=== PATIENT | female | born 1955 | race Caucasian/White ===

== ENCOUNTER → 2017-10-24 | Outpatient (CLI) | payer BC, SELFPAY | PROVIDERS: Visit Provider Family Medicine | DX: Z12.31 Encounter for screening mammogram for malignant neoplasm of breast (principal); I49.9 Cardiac arrhythmia, unspecified | CPT/HCPCS: 77067; 93225; 93226; G0202 ==

== ENCOUNTER → 2018-05-18 13:45 | Outpatient (POV) | payer BC, SELFPAY | PROVIDERS: Visit Provider Nurse Practitioner Acute Care | DX: Z00.00 Encounter for general adult medical examination without abnormal findings (principal) ==

== ENCOUNTER → 2018-11-27 08:22 | Outpatient (CLI) | payer BC, SELFPAY ==
--- NOTE | 2018-11-27 08:26 | MM_ITS ---
MM Dig screening mamm BI w/CAD CAD Screening COMPARISON: May 2015, October 2017, September 2013 bilateral mammogram INDICATION: Routine screening. No hormones. No new complaints. Family history. Maternal aunt with breast cancer postmenopausal X2 TECHNIQUE: Standard CC and MLO images were obtained. R2 CAD reviewed. Additional CC nipple profile view right breast included. FINDINGS: Minimal residual fibroglandular elements. Overall lower breast bilaterally with with moderate generalized fatty replacement.. No dominant mass nor suspicious calcifications either breast. No significant change since prior studies. No areas of significant concern Bilateral follow-up one year recommended IMPRESSION: Stable bilateral mammogram. No new areas concern.. Bilateral follow-up in one year. BI-RADS Category:1 Negative RECOMMENDED FOLLOW-UP: 1YR - 1 YEAR FOLLOW-UP (A letter has been sent to the patient regarding results of the study.)
== END ==
PROVIDERS: PCP Family Medicine; Visit Provider Family Medicine
DX: Z12.31 Encounter for screening mammogram for malignant neoplasm of breast (principal)
CPT/HCPCS: 77067

== ENCOUNTER → 2019-01-05 14:39 | Outpatient (POV) | payer BC, SELFPAY | PROVIDERS: Visit Provider Dermatology | DX: Z00.00 Encounter for general adult medical examination without abnormal findings (principal) ==

== ENCOUNTER → 2019-07-26 12:56 | Outpatient (POV) | payer MEDICARE, SELFPAY | PROVIDERS: PCP Family Medicine; Visit Provider Nurse Practitioner Family | DX: Z00.00 Encounter for general adult medical examination without abnormal findings (principal) ==

== ENCOUNTER → 2020-03-16 10:16 | Outpatient (CLI) | payer MEDICARE, SELFPAY ==
--- NOTE | 2020-03-16 10:27 | MM_ITS ---
PROCEDURE: MM DIG SCREENING MAMM BI W/CAD Digital Breast Tomosynthesis Included CLINICAL INDICATION: SCTREENING There is a history of breast cancer in the patient's paternal aunt. COMPARISON: [facility] DIG MAMM-SCREEN ABBY from 05/26/2015 [facility] DIG MAMM-SCREEN ABBY W/CAD from 10/24/2017 [facility] MM Dig screening mamm BI w/CAD from 11/27/2018 TECHNIQUE: Standard CC and MLO images and 3D Tomosynthesis was obtained. R2 CAD reviewed. FINDINGS: Scattered fibroglandular densities are seen in both breasts on a background of fatty breast parenchyma. The findings of bilateral and symmetrical. There is no new or suspicious lesion in either breast and no suspicious microcalcifications. IMPRESSION: Fibrofatty parenchyma no suspicious lesions seen BI-RAD Category: 1 Negative FOLLOW-UP: 1YR 1 Year Follow-up (A letter has been sent to the patient regarding results of the study.) Dictated by: Dr. Avel Almeida MD 03/17/2020 09:[address] Avel Almeida MD in [place] 03/17/2020 09:57
== END ==
PROVIDERS: PCP Family Medicine; Visit Provider Nurse Practitioner Family
DX: Z12.31 Encounter for screening mammogram for malignant neoplasm of breast (principal)
CPT/HCPCS: 77063; 77067

== ENCOUNTER 2020-04-25 10:39 | Emergency (ER) | payer MEDICARE, SELFPAY ==
[2020-04-25 10:52] VITALS: BP 186/100; PULSE 84; RESP 18; TEMP 36.7; O2SAT 95; BMI 35.5
--- NOTE | 2020-04-25 11:26 | CT_ITS ---
PROCEDURE: CT HEAD/BRAIN WO CON CLINICAL INDICATION: dizziness Dizziness, nausea COMPARISON: No exams were available for comparison TECHNIQUE: Axial images obtained. All CT scans at the facility use one or more dose reduction, viz: automated exposure control, ma/kV adjustment per patient size (including targeted exams where dose is matched to indication, i.e. head), or iterative reconstruction technique. FINDINGS: No midline shift, mass effect, intracranial hemorrhage, hydrocephalus, or extra-axial fluid collection is evident. There is a small lipoma in the falx. The calvarium has an unremarkable appearance. No mastoid effusion. Postsurgical changes of the sinuses with mild mucosal thickening IMPRESSION: No acute intracranial finding Dictated by: Junior Olivo MD 04/25/2020 13:19 Electronically signed by Junior Olivo MD in [place] 04/25/2020 13:19
[2020-04-25 11:28] VITALS: BP 170/96; PULSE 80; O2SAT 96
[2020-04-25 11:37] LABS: Basophils % 0.5 % (0.1-2.0); Eosinophils # 0.2 K/mm3 (0.0-0.4); Eosinophils % 2.2 % (0.1-12.0); Hemoglobin 13.3 g/dL (12.2-16.2); Lymphocytes # 2.9 K/mm3 (0.7-4.5); Lymphocytes % 37.7 % (10-50); Mean Corpuscular HGB Conc 35.1 g/dL (31.8-35.4); Mean Corpuscular Hemoglobin 32.4 pg (27.0-31.2); Mean Corpuscular Volume 92.3 fl (81-99); Monocytes # 0.3 K/mm3 (0.1-1.0); Monocytes % 3.9 % (1.7-9.3); Neutrophils # 4.3 K/mm3 (1.8-7.8); Neutrophils % 55.7 % (37.0-80.0); Platelet Count 263 K/mm3 (142-424); Red Blood Count 4.11 M/mm3 (4.20-5.40); Red Cell Distribution Width 13.9 % (11.5-17.5); White Blood Count 7.7 K/mm3 (4.8-10.8)
[2020-04-25 11:42] LABS: Anion Gap 9.5 mEq/L (5-15); Blood Urea Nitrogen 16 mg/dl (7-17); Calcium 9.4 mg/dl (8.4-10.2); Carbon Dioxide 26 mmol/L (22.0-30.0); Chloride 105 mmol/L (98-107); Creatinine Clearance Estimated 87 mL/min (50-200); Estimated Glomerular Filt Rate 72 ml/min (>60); GFR (African American) 87 ML/MIN (>60); Glucose 156 mg/dl (74-100); Potassium 3.5 mmoL/L (3.5-5.1); Sodium 137 mmol/L (136-145)
[2020-04-25 11:55] LABS: Troponin I < 0.01 ng/ml (0.00-0.034)
[2020-04-25 12:28] VITALS: BP 152/90; PULSE 76; O2SAT 95
[2020-04-25 12:56] VITALS: BP 152/90; PULSE 70; RESP 18; O2SAT 95
--- NOTE | 2020-04-25 13:26 | HMH.EDDIZZ ---
ED Disposition Clinical Impression: Active cochlear Meniere's disease Disposition: Home, Self-Care Condition on Discharge: Good Instructions: DI for Meniere's Disease Additional Instructions: Please stop your hydrochlorothiazide and take the new medication that I am giving you every morning. Use the meclizine as needed for vertigo and dizziness. Prescriptions: Meclizine HCl [Meclizine 25mg Tab] 25 mg PO TID 10 Days #30 tab Transmission Status: Pending to [facility] Triamterene/Hydrochlorothiazid [Triamterene-Hctz 37.5-25 mg Tb] 1 each PO DAILY 30 Days #30 tab Transmission Status: Pending to [facility] Referrals: Peña Palacios MD [Primary Care Provider] - - Critical Care Critical Care Time: No Attestation: On 04/25/20, the high probability of a clinically significant, sudden or life threatening deterioration of the following system(s) required my full and direct attention, intervention and personal management. The time I documented below is in addition to time spent performing reported procedures but includes the following listed in this critical care notation. Medical Decision Making - Medical Records Medical records reviewed: Yes: I reviewed the patient's medical records. - Kurtis Inquiry Pt receiving controlled substance: No Vital Signs: 04/25/20 10:52 04/25/20 11:28 04/25/20 12:28 Temperature 98.1 F Temperature Source Oral Pulse Rate [Right Brachial] 84 80 76 Respiratory Rate 18 Blood Pressure [Right Arm] 186/100 H 170/96 H 152/90 H Blood Pressure Mean [Right Arm] 128 120 110 Blood Pressure Source [Right Arm] Automatic Cuff Automatic Cuff Automatic Cuff Blood Pressure Position [Right Arm] Sitting Sitting Sitting 02 Sat by Pulse Oximetry 95 96 95 Oxygen Delivery Method Room Air Room Air Room Air 04/25/20 12:56 Temperature Temperature Source Pulse Rate [Right Brachial] 70 Respiratory Rate 18 Blood Pressure [Right Arm] 152/90 H Blood Pressure Mean [Right Arm] 110 Blood Pressure Source [Right Arm] Automatic Cuff Blood Pressure Position [Right Arm] Sitting 02 Sat by Pulse Oximetry 95 Oxygen Delivery Method - Lab Data Lab results reviewed: Yes: I reviewed the patient's lab results. Lab Results 04/25/20 11:20: WBC 7.7, RBC 4.11 L, Hgb 13.3, Hct 38.0, MCV 92.3, MCH 32.4 H, MCHC 35.1, RDW 13.9, Plt Count 263, MPV 8.0, Neut % (Auto) 55.7, Lymph % (Auto) 37.7, [place] % (Auto) 3.9, Eos % (Auto) 2.2, Baso % (Auto) 0.5, Neut # (Auto) 4.3, Lymph # (Auto) 2.9, [place] # (Auto) 0.3, Eos # (Auto) 0.2, Baso # (Auto) 0.0 04/25/20 11:20: Sodium 137, Potassium 3.5, Chloride 105, Carbon Dioxide 26, Anion Gap 9.5, BUN 16, Creatinine 0.80, Estimated Creat Clear 87, Estimated GFR 72, Est GFR ( Amer) 87, Glucose 156 H, Calcium 9.4, Troponin I < 0.01 Result diagrams: 04/25/20 11:20 04/25/20 11:20 Orders (Tests/Meds): ORDERS Category Date Time Status Troponin I Q3H Lab 04/25/20 14:30 Ordered Troponin I Q3H Lab 04/25/20 17:30 Ordered Dizzy HPI - General Chief Complaint: Dizziness Stated Complaint: HB nausa Time Seen by Provider: 04/25/20 13:00 Mode of Arrival: Ambulatory Source of Information: Patient Limitations: No Limitations Description of Symptoms (Recalled from ER Triage Doc. by RN): Nausea, dizziness - History of Present Illness MD complaint: dizziness Onset (ago): hour(s) Time: 13:00 Timing: sudden onset Description: sense of movement, room spinning History of similar episodes: No History of trauma: No Severity: moderate Relieving factors: remaining still Exacerbating factors: movement Associated symptoms: denies other symptoms - Related Data Home Medications Medication Instructions Recorded Confirmed Aspirin [Aspirin 81mg EC Tab] 81 mg PO DAILY 03/17/18 03/17/18 Cetirizine HCl [Zyrtec] 10 mg PO DAILY 03/17/18 03/17/18 Duloxetine HCl [Cymbalta 30mg 30 mg PO DAILY 03/17/18 03/17/18 capsule] Esomeprazole Magnesium [N
[2020-04-25 13:30] VITALS: BP 142/85; PULSE 67; O2SAT 96
[2020-04-25 14:07] VITALS: BP 121/76; PULSE 79; RESP 16; TEMP 36.7; O2SAT 97
== END 2020-04-25 14:09 | disposition home or self-care (01) ==
PROVIDERS: Emergency Provider Family Medicine; PCP Family Medicine
DX: H81.09 Meniere's disease, unspecified ear (principal); E78.5 Hyperlipidemia, unspecified; I10 Essential (primary) hypertension; Z79.899 Other long term (current) drug therapy
CPT/HCPCS: 70450; 80048; 84484; 85025; 96374; 99283; 99284; J2405

== ENCOUNTER → 2020-09-08 07:46 | Outpatient (CLI) | payer MEDICARE, SELFPAY ==
[2020-09-08 08:06] LABS: Chloride 105 mmol/L (98-107)
[2020-09-08 08:07] LABS: Sodium 140 mmol/L (136-145)
[2020-09-08 08:09] LABS: Alanine Aminotransferase 39 U/L (12-78); Albumin Level 4.4 g/dl (3.5-5.0); Albumin/Globulin Ratio 1.4 (1.1-1.8); Alkaline Phosphatase 98 U/L (38-126); Aspartate Amino Transferase 34 U/L (14-36); Bilirubin,Total 0.5 mg/dl (0.2-1.3); Blood Urea Nitrogen 15 mg/dl (7-17); Carbon Dioxide 27 mmol/L (22.0-30.0); Estimated Glomerular Filt Rate 63 ml/min (>60); GFR (African American) 76 ML/MIN (>60); Globulin 3.2 g/dL (1.3-3.2); Total Protein,Serum 7.6 g/dl (6.3-8.2)
[2020-09-08 08:10] LABS: Calcium 9.5 mg/dl (8.4-10.2); Glucose 146 mg/dl (74-100); HDL Cholesterol 42 mg/dl (40-60)
[2020-09-08 08:15] LABS: C-Reactive Protein 8.7 mg/L (0-4); Triglycerides 444 mg/dl (30-150)
[2020-09-08 08:34] LABS: Cholesterol 336 mg/dl (140-200)
--- NOTE | 2020-09-08 08:37 | MR_ITS ---
PROCEDURE: MR HEAD/BRAIN WO/W CON CLINICAL INDICATION: CHRONIC MIXED HEADACHE PT C/O HEADACHES AND BLURRED VISION X 3 MONTHS. STATES BLURRED VISION IS ONLY WHEN HEAD HURTS. PT DENIES INJURY OR TRAUMA. COMPARISON: CT CT HEAD/BRAIN WO CON from 04/25/2020 TECHNIQUE: Routine multiplanar multi echo sequences are performed without gadolinium enhancement. FINDINGS: No midline shift, mass effect, intracranial hemorrhage, hydrocephalus, or acute cortical infarction is evident. There are few scattered periventricular and subcortical T2 white matter hyperintensities. These do not demonstrate restricted diffusion nor do the show contrast enhancement. There is mild diffuse and symmetric pachymeningeal/dural arachnoid thickening and enhancement.. This enhancement does not extend into the sulci but is present at the basilar cistern and tentorium. The pituitary, optic chiasm, corpus callosum, and craniocervical junction have an unremarkable appearance. There does appear to be a bulging disc with canal stenosis at C3-C4 on the very periphery of the image. There is mild mucosal thickening of the left maxillary sinus. IMPRESSION: There is mild symmetric and diffuse pachymeningeal/dural arachnoid thickening and enhancement. This is a nonspecific finding and may be secondary to prior surgery, infection/meningitis, neoplasm, intracranial hypotension, and granulomatous disease. Correlation with clinical parameters are needed. Consider neurology consult for further evaluation. Dictated by: Junior Olivo MD 09/09/2020 17:36 Junior Olivo MD in [place] 09/09/2020 17:36
[2020-09-08 08:50] LABS: Hemoglobin A1C 5.8 % (4.0-6.0)
[2020-09-08 11:31] LABS: Thyroid Stimulating Hormone 1.63 uIU/mL (0.465-4.68)
[2020-09-08 12:10] LABS: Direct LDL Cholesterol 165.54 mg/dL (100-129)
== END ==
PROVIDERS: PCP Family Medicine; Visit Provider Family Medicine
DX: G44.89 Other headache syndrome (principal); Z79.899 Other long term (current) drug therapy
CPT/HCPCS: 36415; 70553; 80053; 80061; 83036; 84436; 84443; 86140; A9576

== ENCOUNTER → 2020-10-11 09:14 | Outpatient (CLI) | payer MEDICARE, SELFPAY ==
[2020-10-11 09:21] LABS: MANUAL DIFFERENTIAL MANUAL DIFFERENTIAL (MANUAL DIFF)
[2020-10-11 09:54] LABS: Basophils # 0.1 K/mm3 (0-0.2); Basophils % 0.9 % (0.1-2.0); Eosinophils # 0.2 K/mm3 (0.0-0.4); Hematocrit 45.2 % (37.0-47.0); Hemoglobin 15.1 g/dL (12.2-16.2); Lymphocytes # 2.6 K/mm3 (0.7-4.5); Lymphocytes % 35.1 % (10-50); Mean Corpuscular HGB Conc 33.5 g/dL (31.8-35.4); Mean Corpuscular Hemoglobin 31.6 pg (27.0-31.2); Mean Corpuscular Volume 94.3 fl (81-99); Monocytes # 0.3 K/mm3 (0.1-1.0); Neutrophils # 4.3 K/mm3 (1.8-7.8); Platelet Count 315 K/mm3 (142-424); Red Blood Count 4.79 M/mm3 (4.20-5.40); Red Cell Distribution Width 13.9 % (11.5-17.5); White Blood Count 7.4 K/mm3 (4.8-10.8)
[2020-10-11 11:48] LABS: Erythrocyte Sedimentation Rate 17 mm/hr (0-30)
[2020-10-11 11:56] LABS: Eosinophils % 3 % (0-3); Lymphocytes % 38 % (10-50); Monocytes % 2 % (2-9); Neutrophils % 56 % (42-76); Platelet Estimate Normal; Total Cells Counted 100
[2020-10-11 11:57] LABS: RBC Morphology Normal
[2020-10-12 15:18] LABS: Angiotensin Converting Enzyme 40 U/L (14-82)
[2020-10-19 15:51] LABS: Antinuclear Antibodies (ANA) NEGATIVE
== END ==
PROVIDERS: Visit Provider Specialist
DX: G89.29 Other chronic pain (principal); R51.9 Headache, unspecified; R90.89 Other abnormal findings on diagnostic imaging of central nervous system
CPT/HCPCS: 36415; 82164; 85007; 85014; 85018; 85048; 85049; 85651; 86038; 86225; 86235; 86618

== ENCOUNTER 2020-10-13 11:20 | Day surgery (SDC) | payer MEDICARE, SELFPAY ==
[2020-10-13 12:27] VITALS: BP 161/101; PULSE 80; RESP 18; TEMP 36.7; O2SAT 96; BMI 35.5
[2020-10-13 12:56] VITALS: BP 152/78; PULSE 85
[2020-10-13 12:57] VITALS: BP 138/78; PULSE 85; RESP 18; O2SAT 98
--- NOTE | 2020-10-13 13:24 | P.PCN_ITS ---
- Procedure Date: 10/13/20 Time: 13:25 Anesthesiologist:: Ken Park MD Complications:: None Pre-procedure Diagnosis:: Headache Post-procedure Diagnosis:: Same Indications for Procedure:: Patient is a pleasant 65-year-old white female who was referred to us by Dr. Mathew for lumbar puncture diagnostic to obtain opening and closing pressures because of chronic headache and abnormal findings on MRI. Procedure Details:: Lumbar puncture Informed consent was obtained and the risk and benefits of the procedure was explained to the patient. The patient was taken to the procedure room placed in the left lateral decubitus position. She was prepped in sterile fashion. C-arm fluoroscopy was used to view the L4-5 and L5-S1 interspace. The skin and subcutaneous tissues were anesthetized using lidocaine. A 20-gauge spinal needle was inserted and advanced first into the L5-S1 interspace with paresthesias so was redirected into the L4-L5 interspace. The patient continued to have some paresthesias. We were able to obtain opening pressures which were found to be 14 cm of water. We started obtaining clear CSF the needle had to be repositioned so tubes 2 3 and 4 had blood-tinged CSF after repositioning of the needle. We filled each tube with 1 to 2 mL of CSF. These were sent for indicated studies. Closing pressures were found to be 11 cm of water. Patient tolerated the procedure well with no complications. She did develop a headache mediately after the procedure. She was given conservative treatment recommendations for post dural puncture headache and also given an IM shot of Toradol 30 mg prior to discharge. Plan and Disposition:: We will follow-up with this patient on a as needed basis. If her headache wors ens and she needs an epidural blood patch please let us know.
[2020-10-13 13:25] VITALS: RESP 20
[2020-10-13 13:43] VITALS: BP 169/99; PULSE 75; RESP 20; O2SAT 96
[2020-10-13 14:38] LABS: Glucose,CSF 69 mg/dl (40-70)
[2020-10-13 14:51] LABS: Appearance,CSF Bloody (Clear)
[2020-10-13 14:54] LABS: Volume,CSF 4 mL
[2020-10-13 15:29] LABS: Appearance,CSF Cloudy (Clear)
[2020-10-13 15:30] LABS: Red Blood Cell,CSF 743 cells/uL (0); Volume,CSF 4 mL; White Blood Cell,CSF 9 cells/uL (0-5)
[2020-10-13 16:45] LABS: Mononuclear WBCs,CSF 83 %; Polynuclear WBCs,CSF 17 %
[2020-10-17 17:02] LABS: HSV-1 DNA Negative (Negative)
[2020-10-18 06:07] LABS: HSV-2 DNA Negative (Negative); VDRL, Cerebrospinal Fluid Non Reactive (Non Rea:<1:1)
[2020-10-18 13:13] LABS: Albumin 4.4 g/dL (3.8-4.8); Immunoglobulin G, Qn, Serum 1000 mg/dL (586-1602)
[2020-10-18 15:04] LABS: Cryptococcus Antigen, CSF Negative (Negative)
[2020-10-19 02:28] LABS: CAP Mandated Reflex to Culture Not Indicated (.)
[2020-10-21 12:54] LABS: CSF Lyme (B. burgdorferi) PCR Negative (Negative)
== END 2020-10-13 13:44 | disposition home or self-care (01) ==
LOC: SC.PAINP 11:22
PROVIDERS: Specialist; PCP Family Medicine; Visit Provider Anesthesiology
DX: R50.9 Fever, unspecified (principal); I10 Essential (primary) hypertension; E78.5 Hyperlipidemia, unspecified; K21.9 Gastro-esophageal reflux disease without esophagitis; F32.9 Major depressive disorder, single episode, unspecified; J45.909 Unspecified asthma, uncomplicated; F41.9 Anxiety disorder, unspecified
CPT/HCPCS: 36415; 62272; 82040; 82042; 82784; 82945; 83916; 84155; 86592; 87070; 87077; 87102; 87116; 87186; 87205; 87206; 87476; 87529; 88112; 89051; 96372

== ENCOUNTER 2020-10-13 18:26 | Observation (INO) | payer MEDICARE, SELFPAY ==
[2020-10-13] VITALS (8 sets, daily range): BP systolic 161–199; BP diastolic 88–105; PULSE 76–97; RESP 14–20; TEMP 36.3–37.1; O2SAT 96–98; BMI 35.5; BMI 35.7
--- NOTE | 2020-10-13 19:00 | HMH.EDGENADL ---
ED Disposition Condition on Discharge: Good - Critical Care Critical Care Time: No <DerikFlip - Last Filed: 10/13/20 21:17> <Kendra Shields - Last Filed: 10/13/20 22:20> Clinical Impression: Chronic meningitis Disposition: Still a Patient Referrals: Peña Palacios MD [Primary Care Provider] - Attestation: On 10/13/20, the high probability of a clinically significant, sudden or life threatening deterioration of the following system(s) required my full and direct attention, intervention and personal management. The time I documented below is in addition to time spent performing reported procedures but includes the following listed in this critical care notation. Medical Decision Making - Medical Records Medical records reviewed: Yes: I reviewed the patient's medical records. - Kurtis Inquiry Pt receiving controlled substance: No - Lab Data Result diagrams: 10/13/20 20:32 10/13/20 20:32 <DerikFlip - Last Filed: 10/13/20 21:17> - Lab Data Result diagrams: 10/13/20 20:32 10/13/20 20:32 <Kendra Shields - Last Filed: 10/13/20 22:20> Vital Signs: 10/13/20 18:28 10/13/20 18:58 10/13/20 19:30 Temperature 98.7 F Temperature Source Oral Pulse Rate [Left Radial] 97 H 76 92 H Respiratory Rate 19 20 14 Blood Pressure [Right Arm] 175/105 H 174/88 H 199/98 H Blood Pressure Mean [Right Arm] 128 116 131 Blood Pressure Source [Right Arm] Automatic Cuff Automatic Cuff Automatic Cuff Blood Pressure Position [Right Arm] Sitting Sitting Sitting 02 Sat by Pulse Oximetry 97 96 98 Oxygen Delivery Method Room Air Room Air 10/13/20 20:00 10/13/20 20:30 10/13/20 21:00 Temperature Temperature Source Pulse Rate [Left Radial] 91 H 88 88 Respiratory Rate 14 Blood Pressure [Right Arm] 167/98 H 167/98 H 175/99 H Blood Pressure Mean [Right Arm] 121 121 124 Blood Pressure Source [Right Arm] Automatic Cuff Automatic Cuff Automatic Cuff Blood Pressure Position [Right Arm] Sitting Supine Supine 02 Sat by Pulse Oximetry 97 96 96 Oxygen Delivery Method Room Air Room Air - Lab Data Lab Results 10/13/20 20:32: WBC 8.8, RBC 4.65, Hgb 14.6, Hct 43.6, MCV 93.6, MCH 31.4 H, MCHC 33.5, RDW 13.3, Plt Count 296, MPV 9.1, Neut % (Auto) 50.9, Lymph % (Auto) 40.8, [place] % (Auto) 4.9, Eos % (Auto) 2.4, Baso % (Auto) 1.0, Neut # (Auto) 4.5, Lymph # (Auto) 3.6, [place] # (Auto) 0.4, Eos # (Auto) 0.2, Baso # (Auto) 0.1 10/13/20 20:32: Sodium 142, Potassium 3.9, Chloride 107, Carbon Dioxide 26, Anion Gap 12.9, BUN 19 H, Creatinine 1.00, Estimated Creat Clear 87, Estimated GFR 55 L, Est GFR ( Amer) 67, Glucose 111 H, Calcium 10.2 Orders (Tests/Meds): ED MEDICATIONS Generic Name Dose Route Start Last Admin Trade Name Freq PRN Reason Stop Dose Admin Ampicillin Sodium/Sulbactam 100 mls @ 200 mls/hr 10/13/20 22:15 Sodium 3 gm/ Sodium Chloride IV 10/27/20 22:14 Q6H AZRA Protocol Ceftriaxone Sodium 2 gm/ 100 mls @ 200 mls/hr 10/13/20 22:15 Sodium Chloride IV 10/27/20 22:14 Q24H AZRA Protocol Vancomycin HCl 1,500 mg/ 250 mls @ 125 mls/hr 10/13/20 22:10 Sodium Chloride IV 10/14/20 00:09 ONCE ONE Protocol Discontinued Medications Generic Name Dose Route Start Last Admin Trade Name Freq PRN Reason Stop Dose Admin Acyclovir Sodium 500 mg/ 250 mls @ 250 mls/hr 10/13/20 22:12 Sodium Chloride IV 10/13/20 22:13 ONCE ONE ORDERS Category Date Time Status Chest XR -- portable [XR chest portable] Stat Exams 10/13/20 19:21 Taken Covid-19 IgG/IgM ([facility]) Stat Lab 10/13/20 20:32 Received HIV Panel [id number] Stat Lab 10/13/20 20:32 Received Medical Decision Narrative: Patient is a 65-year-old female presenting with findings concerning for chronic meningitis. On review of her chart she did have basic lab work done 2 days ago relatively unremarkable without leukocytosis or other metabolic derangements. I did review patient's CSF
--- NOTE | 2020-10-13 19:21 | XR_ITS ---
PROCEDURE: XR CHEST PORTABLE CLINICAL HISTORY: r/o cavitary lesion or hilar adenopathy COMPARISON: No exams were available for comparison FINDINGS: The cardiomediastinal silhouette and pulmonary vascularity are within normal limits considering a somewhat poor inspiration. The lungs are clear without infiltrates, suspicious nodules, or pleural effusions. No acute bony abnormalities. IMPRESSION: No acute findings. Dictated by: Dr. Avel Almeida MD 10/14/2020 08:11 Dr. Avel Almeida MD in 10/14/2020 08:11
[2020-10-13 20:37] LABS: Basophils # 0.1 K/mm3 (0-0.2); Eosinophils # 0.2 K/mm3 (0.0-0.4); Eosinophils % 2.4 % (0.1-12.0); Hematocrit 43.6 % (37.0-47.0); Hemoglobin 14.6 g/dL (12.2-16.2); Lymphocytes # 3.6 K/mm3 (0.7-4.5); Lymphocytes % 40.8 % (10-50); Mean Corpuscular HGB Conc 33.5 g/dL (31.8-35.4); Mean Corpuscular Hemoglobin 31.4 pg (27.0-31.2); Mean Corpuscular Volume 93.6 fl (81-99); Mean Platelet Volume 9.1 fl (7.4-10.4); Monocytes # 0.4 K/mm3 (0.1-1.0); Monocytes % 4.9 % (1.7-9.3); Neutrophils # 4.5 K/mm3 (1.8-7.8); Neutrophils % 50.9 % (37.0-80.0); Platelet Count 296 K/mm3 (142-424); Red Blood Count 4.65 M/mm3 (4.20-5.40); Red Cell Distribution Width 13.3 % (11.5-17.5); White Blood Count 8.8 K/mm3 (4.8-10.8)
[2020-10-13 20:48] LABS: Anion Gap 12.9 mEq/L (5-15); Blood Urea Nitrogen 19 mg/dl (7-17); Calcium 10.2 mg/dl (8.4-10.2); Carbon Dioxide 26 mmol/L (22.0-30.0); Chloride 107 mmol/L (98-107); Creatinine Clearance Estimated 87 mL/min (50-200); Estimated Glomerular Filt Rate 55 ml/min (>60); GFR (African American) 67 ML/MIN (>60); Glucose 111 mg/dl (74-100); Potassium 3.9 mmoL/L (3.5-5.1); Sodium 142 mmol/L (136-145)
--- NOTE | 2020-10-13 21:58 | PC.NURSE ---
Dr Speaking with Dr Johnson for admission
--- NOTE | 2020-10-13 22:19 | PC.NURSE ---
Spoke w/ Jody Gonzalez, Pharmacist at [phone] to verify vanc dosing. Ok to give up to 1750mg of Vanc.
[2020-10-13 22:23] LABS: Coronavirus 19 IgG Antibody Negative (Negative); Coronavirus 19 IgM Antibody Negative (Negative)
--- NOTE | 2020-10-13 22:50 | PC.NURSE ---
Pt having difficulty breathing with tightening of chest after completing IV Rocephin, pt treated with IV Benadryl, pepcid, and Solu-Medrol. Pt received relief of all symptoms after treated.
--- NOTE | 2020-10-13 23:31 | PC.NURSE ---
patient up to floor via wheelchair
[2020-10-14] VITALS: PULSE 77; RESP 16; O2SAT 96
[2020-10-14 04:00] VITALS: BP 146/84; PULSE 99; RESP 16; TEMP 36.9; O2SAT 96
[2020-10-14 05:19] VITALS: BMI 35.8
--- NOTE | 2020-10-14 05:23 | PC.NURSE ---
pt has rested well since arriving to floor, has tolerated the IV antibiotics well with no s/s of reaction, pt did have a reaction with Rocephin in the ER, has been added to pt's allergy list, denies headache, N/V/D, lung sounds CTA
[2020-10-14 07:05] LABS: Basophils % 0.4 % (0.1-2.0); Eosinophils % 0.1 % (0.1-12.0); Hematocrit 44.1 % (37.0-47.0); Hemoglobin 14.6 g/dL (12.2-16.2); Lymphocytes # 1.1 K/mm3 (0.7-4.5); Lymphocytes % 15.9 % (10-50); Mean Corpuscular HGB Conc 33.1 g/dL (31.8-35.4); Mean Corpuscular Hemoglobin 31.5 pg (27.0-31.2); Mean Corpuscular Volume 95.3 fl (81-99); Monocytes # 0.1 K/mm3 (0.1-1.0); Neutrophils # 5.7 K/mm3 (1.8-7.8); Neutrophils % 82.6 % (37.0-80.0); Platelet Count 290 K/mm3 (142-424); Red Blood Count 4.63 M/mm3 (4.20-5.40); Red Cell Distribution Width 13.6 % (11.5-17.5); White Blood Count 6.9 K/mm3 (4.8-10.8)
[2020-10-14 07:09] LABS: Chloride 110 mmol/L (98-107); Potassium 4.3 mmoL/L (3.5-5.1); Sodium 144 mmol/L (136-145)
[2020-10-14 07:12] LABS: Anion Gap 13.3 mEq/L (5-15); Blood Urea Nitrogen 15 mg/dl (7-17); Calcium 9.7 mg/dl (8.4-10.2); Carbon Dioxide 25 mmol/L (22.0-30.0); Creatinine Clearance Estimated 90 mL/min (50-200); Estimated Glomerular Filt Rate 63 ml/min (>60); GFR (African American) 76 ML/MIN (>60); Glucose 211 mg/dl (74-100)
[2020-10-14 08:00] VITALS: BP 146/103; PULSE 113; RESP 16; TEMP 36.4; O2SAT 94
--- NOTE | 2020-10-14 09:25 | HMH.PHACONS ---
- Pharmacy Consult Date: 10/14/20 Time: 09:25 Referring provider: DR. LOZA Reason for Consult:: VANCOMYCIN DOSING Allergies and ADEs:: Allergies Allergy/AdvReac Type Severity Reaction Status Date / Time ceftriaxone [From Rocephin] Allergy Intermediate Anaphylaxis Verified 10/14/20 08:24 suture Allergy Mild Redness of Verified 10/14/20 09:18 Skin Home Medications:: Home Medications Medication Instructions Recorded Confirmed Type Cetirizine HCl [Zyrtec] 10 mg PO DAILY 03/17/18 10/13/20 History Duloxetine HCl [Cymbalta 30mg 30 mg PO BID 03/17/18 10/14/20 History capsule] Losartan Potassium [Cozaar] 50 mg PO DAILY 03/17/18 10/13/20 History albuterol sulfate 90 mcg/actuation 90 inhalation INHALATION [id number] 10/03/20 10/13/20 History aerosol inhaler PRN alprazolam 0.5 mg tablet 0.5 mg PO BIDP PRN tab 10/03/20 10/14/20 History Topiramate 100 mg PO DAILY 10/13/20 10/13/20 History Rosuvastatin Calcium 20 mg PO HS 10/14/20 10/14/20 History Height: 1.7 m Weight: 103.555 kg Laboratory Results:: Laboratory Results - last 24 hr 10/13/20 20:32: WBC 8.8, RBC 4.65, Hgb 14.6, Hct 43.6, MCV 93.6, MCH 31.4 H, MCHC 33.5, RDW 13.3, Plt Count 296, MPV 9.1, Neut % (Auto) 50.9, Lymph % (Auto) 40.8, [place] % (Auto) 4.9, Eos % (Auto) 2.4, Baso % (Auto) 1.0, Neut # (Auto) 4.5, Lymph # (Auto) 3.6, [place] # (Auto) 0.4, Eos # (Auto) 0.2, Baso # (Auto) 0.1 10/13/20 20:32: Sodium 142, Potassium 3.9, Chloride 107, Carbon Dioxide 26, Anion Gap 12.9, BUN 19 H, Creatinine 1.00, Estimated Creat Clear 87, Estimated GFR 55 L, Est GFR ( Amer) 67, Glucose 111 H, Calcium 10.2 10/13/20 20:32: SARS-CoV-2 IgG Ab (Rapid) Negative, SARS-CoV-2 IgM Ab (Rapid) Negative 10/14/20 06:42: WBC 6.9, RBC 4.63, Hgb 14.6, Hct 44.1, MCV 95.3, MCH 31.5 H, MCHC 33.1, RDW 13.6, Plt Count 290, MPV 8.0, Neut % (Auto) 82.6 H, Lymph % (Auto) 15.9, [place] % (Auto) 1.0 L, Eos % (Auto) 0.1, Baso % (Auto) 0.4, Neut # (Auto) 5.7, Lymph # (Auto) 1.1, [place] # (Auto) 0.1, Eos # (Auto) 0.0, Baso # (Auto) 0.0 10/14/20 06:42: Sodium 144, Potassium 4.3, Chloride 110 H, Carbon Dioxide 25, Anion Gap 13.3, BUN 15, Creatinine 0.90, Estimated Creat Clear 90, Estimated GFR 63, Est GFR ( Amer) 76, Glucose 211 H D, Calcium 9.7 Medical History: Reports:: Asthma, Depression, Hyperlipidemia, Hypertension, Osteoporosis Denies:: Cancer, Diabetes Mellitus Type 1, Diabetes Mellitus Type 2, Internal Pacemaker, Lung Disease, MRSA, Seizures Assessment and Plan - Assessment and plan all Dx Assessment and Plan for all problems:: PATIENT RECEIVED VANCOMYCIN 1750 MG ONCE AT 0025 10/14/20. RECOMMEND PATIENT CONTINUE WITH VANCOMYCIN 1750 MG Q18H STARTING WITH NEXT DOSE AT 1700 TODAY. PHARMACY WILL FOLLOW DAILY AND ADJUST APPROPRIATE.
--- NOTE | 2020-10-14 10:55 | HMH.HP ---
*Admission Date: 10/13/20 *Chief complaint: headache *History of present illness: Ct is a 65-year-old white female with a history of hypertension, hyperlipidemia, anxiety disorder, sleep apnea, and chronic back pain due to spinal stenosis. She presented to the emergency room yesterday after receiving a call from the hospital that she needed to come in for evaluation for possible meningitis. History is that she has been having chronic, almost daily headaches for the past 6 months. She was seen in the office of [facility] at the end of August and was sent for an MRI which showed dural arachnoid enhancement with suggestion of several differential diagnoses. At this point she was referred to Dr. Mathew for neurology consultation. Dr. Mathew arranged for her to have a lumbar puncture which was carried out yesterday by Dr. Park. The spinal fluid showed 9 white blood cells and a total protein of nearly 500. It was at this point that she was notified and advised to go to the emergency room. She was evaluated in the ER and it was suggested that she would benefit from consultation with neurology and infectious disease at a tertiary care center. The ER physician contacted but apparently no beds are available due to the Covid pandemic. The ER physician discussed the case with a neurology attending at and it was his opinion that she did not have an acute life-threatening condition and could be admitted here for treatment with antibiotics pending the results of the spinal fluid cultures. Please refer to the ER note for specific details. At the time of my exam this morning, she continues to complain of headache which is mostly in the posterior cranium but also on top of her head. She states it is a bit worse than the headache she has been having for the past 6 months. Her daughter also reports that she has been a bit more confused at times. Ct has been aware of this. Dr. Mathew consultation note makes mention of episodic confusion for the past several months as well. She has also had intermittent nausea and vomiting. As part of her outpatient work-up thus far, she has had an elevated CRP with a normal sed rate. Fasting glucose is elevated but A1c was normal. The Lyme titer was negative. TB skin test was nonreactive. GEOVANY is pending. [facility] History Medical History: Reports:: Anxiety, Asthma, Depression, Hyperlipidemia, Hypertension, Osteoporosis Denies:: Cancer, Diabetes Mellitus Type 1, Diabetes Mellitus Type 2, Internal Pacemaker, Lung Disease, MRSA, Seizures *Have you ever received a pneumonia vaccine?: Yes *Have you received a flu vaccine this season?: Yes Other Medical History: Reports: Arthritis, Osteoporosis, Other (Spinal stenosis with chronic back pain; sleep apnea). Denies: Blood Transfusion Reaction Laterality Cases: Right: Carpal Tunnel Release Other Surgeries: Yes: Cholecystectomy, Colonoscopy, Colon Resection (For diverticulosis), Hysterectomy-Partial, Tubal Ligation, Other (nasal surgery; excision lumbar synovial cyst; joint replacement left thumb). No: Pacemaker Amputation: No Fractures: No - *Social History Smoking Status: Never smoker Alcohol Intake: never Alcohol Intake Frequency:: a few times a month *Occupational Status:: retired Housing: house Household Members: spouse *Travel in the last 8 weeks: None - Psychiatric History Pschychiatric History:: Reports:: Anxiety, Depression Family Hx:: Coronary Artery Disease, Heart Attack, Alcoholism Review of Systems - Constitutional Denies body ache(s), Denies chills - Eyes Denies change in vision - ENT Denies abnormal hearing, Denies neck pain - *Cardiovascular Reports rapid, pounding, or irregular heartbeat, Denies chest pain, Denies shortness of breath - *Respiratory Denies chest congestion, Denies cough, Denies coughing up blood - *Gastrointestinal Denies abdominal pain, Denies change in bowel habits, Denies difficulty swallowing - *Genitourinary Akira
--- NOTE | 2020-10-14 12:05 | P.CONPHA_ITS ---
[facility] Pharmacy VTE Monitoring - Patient Demographics Admission date: 10/14/20 Report Date: 10/14/20 Time: 12:06 Allergies/Adverse Reactions: Patient Allergies ceftriaxone [From Rocephin] Allergy (Intermediate, Verified 10/14/20 08:24) Anaphylaxis suture Allergy (Mild, Verified 10/14/20 09:18) Redness of Skin Height: 1.7 m Weight: 103.555 kg Patient Problems: Current Active Problems Chronic meningitis (Acute) - VTE Risk Labs: VTE Related Lab Results Hgb 14.6 g/dL (12.2-16.2) 10/14/20 06:42 Hct 44.1 % (37.0-47.0) 10/14/20 06:42 Plt Count 290 K/mm3 (142-424) 10/14/20 06:42 BUN 15 mg/dl (7-17) 10/14/20 06:42 Creatinine 0.90 mg/dl (0.52-1.04) 10/14/20 06:42 Estimated Creat Clear 90 mL/min (50-200) 10/14/20 06:42 VTE Score: 3 VTE Risk Level: Low Risk - Prophylaxis Types of VTE Prophylaxis: TEDS Knee High (ALEX HOSE ORDERED)
[2020-10-14 16:00] VITALS: BP 134/66; PULSE 103; RESP 18; TEMP 36.8; O2SAT 94
--- NOTE | 2020-10-14 17:41 | PC.NURSE ---
Pt has been pleasant and cooperative this shift. A&O X4. Pt has had frequent complaints of a headache and has been medicated with Tylenol, Ibuprofen, and Toradol. Pt also had 1 episode of nausea and received Zofran per MAR. Pt ambulates independently to/from the bathroom and voids clear, yellow urine without issue. No BM this shift. Skin is C/D/I. No edema noted. Lungs CTA. 18 G peripheral IV in the RT AC is patent and SL. B/P elevated this AM and improved after pain control. Other VSS. Call light within reach. Will continue to monitor.
[2020-10-14 20:00] VITALS: BP 151/86; PULSE 82; RESP 20; TEMP 36.4; O2SAT 96
[2020-10-14 20:30] VITALS: PULSE 82; RESP 20; O2SAT 96
[2020-10-15 03:38] VITALS: BP 131/72; PULSE 90; RESP 16; TEMP 36.6; O2SAT 96
--- NOTE | 2020-10-15 04:48 | PC.NURSE ---
pt has rested well t/o shift, systolic BP 131-151, HR 82-90, has remained on room air with O2 sats at 96%, lungs CTA, has remained afebrile, complained of headache one time this shift and was treated with toradol per JAN, ambulating independently to and from bathroom
[2020-10-15 04:52] VITALS: BMI 36.1
[2020-10-15 08:00] VITALS: BP 162/97; PULSE 86; RESP 16; TEMP 36.8; O2SAT 96
--- NOTE | 2020-10-15 09:36 | P.PN_ITS ---
Internal Medicine - PN: Subj *Date: 10/15/20 *Time: 09:36 Interval history: CSF cultures are still pending. She has gotten some relief from her headaches with the Toradol but states it only last 3 to 4 hours. She was able to rest much better last night. Her only other new complaint is swelling hands and feet. Exam Vital signs and Labs for Last 24 Hours: Temp Pulse Resp BP Pulse Ox 98.2 F 86 16 162/97 H 96 10/15/20 08:00 10/15/20 08:00 10/15/20 08:00 10/15/20 08:00 10/15/20 08:00 I & O for Last 24 hours: Intake & Output 10/12/20 10/13/20 10/14/20 10/15/20 11:59 11:59 11:59 11:59 Intake Total 2009 2600 / 2600 Balance 2009 2600 / 2600 Weight 228 lb 4.8 oz 230 lb 3 oz Narrative: She is alert and pleasant and appears in no distress. Lungs are clear to auscultation. Heart is regular. Abdomen is soft and nondistended with some mild epigastric tenderness. Extremities show trace edema in her hands and feet. Assessment and Plan (1) Chronic meningitis Status: Acute Category: Medical Code(s): G03.1 - Chronic meningitis (2) Chronic daily headache Status: Acute Category: Medical Code(s): R51.9 - Headache, unspecified (3) Episodic confusion Status: Acute Category: Medical Code(s): R41.0 - Disorientation, unspecified (4) Hypertension Status: Acute Category: Medical Code(s): I10 - Essential (primary) hyper tension (5) Hyperlipidemia Status: Acute Category: Medical Code(s): E78.5 - Hyperlipidemia, unspecified (6) Obstructive sleep apnea Status: Acute Category: Medical Code(s): G47.33 - Obstructive sleep apnea (a dult) (pediatric) (7) Hyperglycemia Status: Acute Category: Medical Code(s): R73.9 - Hyperglycemia, unspecified (8) Lumbar spinal stenosis Status: Acute Category: Medical Code(s): M48.061 - Spinal stenosis, lumbar region without neurogenic claudication (9) Chronic back pain Status: Acute Category: Medical Code(s): M54.9 - Dorsalgia, unspecified; G89.29 - Other chronic pain (10) Depression with anxiety Status: Acute Category: Medical Code(s): F41.8 - Other specified anxiety disorders - Assessment and plan all Dx Assessment and Plan for all problems:: Continue current antibiotic regimen pending results of CSF cultures. Activity as tolerated
[2020-10-15 15:33] VITALS: BP 144/77; PULSE 92; RESP 20; TEMP 36.7; O2SAT 95
--- NOTE | 2020-10-15 16:44 | PC.NURSE ---
Pt has been pleasant and cooperative this shift. A&O X4. Pt has complained of a headache X2 and received Toradol per MAR with favorable results. Pt has also complained of nausea and received Zofran per MAR. Pt ambulates independently to/from the bathroom and voids clear, yellow urine without issue. Pt has also ambulated in the hallway today. No BM this shift. Skin is C/D/I. Generalized, non-pitting edema noted to BLE. Lungs CTA. 18 G peripheral IV in the RT AC is patent and SL. B/P has been slightly elevated this shift. Other VSS. Call light within reach. Will continue to monitor.
[2020-10-15 20:00] VITALS: BP 182/96; PULSE 85; RESP 16; TEMP 36.8; O2SAT 95
[2020-10-15 20:15] VITALS: PULSE 85; RESP 16; O2SAT 95
[2020-10-16 03:57] VITALS: BP 150/99; PULSE 96; RESP 18; TEMP 36.8; O2SAT 92
[2020-10-16 05:04] VITALS: BMI 35.3
--- NOTE | 2020-10-16 05:09 | PC.NURSE ---
pt has rested well t/o shift, did ambulate in hallway at beginning of shift, remains on room air, lungs CTA, remained afebrile, did complain of headache one time this shift and was treated per JAN, no complaints of SOA or chest pain, systolic BP 150-182
--- NOTE | 2020-10-16 05:47 | PC.NURSE ---
0545 lab called to check on status of vanc trough, not done yet
[2020-10-16 05:49] LABS: Vancomycin,Trough 9.3 ug/mL (5.0-10.0)
[2020-10-16 07:32] VITALS: BP 147/84; PULSE 99; RESP 18; TEMP 36.9; O2SAT 100
[2020-10-16 08:44] LABS: HIV Screen 4th Generation wRfx Non Reactive (Non Reactive)
--- NOTE | 2020-10-16 08:46 | HMH.ACPN2 ---
<Monae Salmon - Last Filed: 10/16/20 08:46> Internal Medicine - PN: Subj *Date: 10/16/20 *Time: 08:46 Interval history: Patient states she is feeling better today. She does not feel like she is in a fog anymore. She is ambulating without difficulty. She still has a headache periodically but it is much improved. She denies chest pain and shortness of breath. She feels her swelling is better as well. She is eating and drinking without difficulty. Exam Vital signs and Labs for Last 24 Hours: Temp Pulse Resp BP Pulse Ox 98.4 F 99 H 18 147/84 H 100 10/16/20 07:32 10/16/20 07:32 10/16/20 07:32 10/16/20 07:32 10/16/20 07:32 Laboratory Results - last 24 hr 10/13/20 20:32: HIV 1&2 Ag/Ab, 4th Gen Non reactive 10/16/20 04:45: Vancomycin Trough 9.3 I & O for Last 24 hours: Intake & Output 10/13/20 10/14/20 10/15/20 10/16/20 11:59 11:59 11:59 11:59 Intake Total 2009 2600 / 2600 1760 / 1760 Balance 2009 2600 / 2600 1760 / 1760 Weight 228 lb 4.8 oz 230 lb 3 oz 225 lb 2 oz - Constitutional no acute distress - *Routine Respiratory Exam Present: CTA bilaterally (Anteriorly and posteriorly) - *Routine Cardiovascular Exam Present: RRR - *Routine Abdominal Exam Present: soft, normoactive bowel sounds. Absent: tenderness, distended - *Routine Extremities Exam Absent: edema, calf tenderness - *Routine Neurological Exam Present: alert, oriented X3 Assessment and Plan (1) Chronic meningitis Status: Acute Category: Medical Code(s): G03.1 - Chronic meningitis (2) Chronic daily headache Status: Acute Category: Medical Code(s): R51.9 - Headache, unspecified (3) Episodic confusion Status: Acute Category: Medical Code(s): R41.0 - Disorientation, unspecified (4) Hypertension Status: Acute Category: Medical Code(s): I10 - Essential (primary) hypertension (5) Hyperlipidemia Status: Acute Category: Medical Code(s): E78.5 - Hyperlipidemia, unspecified (6) Obstructive sleep apnea Status: Acute Category: Medical Code(s): G47.33 - Obstructive sleep apnea (adult) (pediatric) (7) Hyperglycemia Status: Acute Category: Medical Code(s): R73.9 - Hyperglycemia, unspecified (8) Lumbar spinal stenosis Status: Acute Category: Medical Code(s): M48.061 - Spinal stenosis, lumbar region without neurogenic claudication (9) Chronic back pain Status: Acute Category: Medical Code(s): M54.9 - Dorsalgia, unspecified; G89.29 - Other chronic pain (10) Depression with anxiety Status: Acute Category: Medical Code(s): F41.8 - Other specified anxiety disorders - Assessment and plan all Dx Assessment and Plan for all problems:: Spinal tap with gram-negative mick. ID is pending. We will continue with current antibiotic regime with vancomycin and Unasyn. <Peña Palacios - Last Filed: 10/16/20 13:38> Internal Medicine - PN: Subj *Date: 10/16/20 *Time: 13:36 Exam Vital signs and Labs for Last 24 Hours: Temp Pulse Resp BP Pulse Ox 98.4 F 99 H 18 147/84 H 100 10/16/20 07:32 10/16/20 07:32 10/16/20 07:32 10/16/20 07:32 10/16/20 07:32 Laboratory Results - last 24 hr 10/13/20 20:32: HIV 1&2 Ag/Ab, 4th Gen Non reactive 10/16/20 04:45: Vancomycin Trough 9.3 I & O for Last 24 hours: Intake & Output 10/14/20 10/15/20 10/16/20 10/17/20 11:59 11:59 11:59 11:59 Intake Total 2009 2600 / 2600 1760 / 1760 Balance 2009 2600 / 2600 1760 / 1760 Weight 228 lb 4.8 oz 230 lb 3 oz 225 lb 2 oz Assessment and Plan (1) Chronic meningitis Status: Acute Category: Medical Code(s): G03.1 - Chronic meningitis (2) Chronic daily headache Status: Acute Category: Medical Code(s): R51.9 - Headache, unspecified (3) Episodic confusion Status: Acute Category: Medical Code(s): R41.0 - Disorientation, unspecified (4) Hypertension Status: Acute Category: Medical Code(s)
--- NOTE | 2020-10-16 09:45 | PC.NURSE ---
Called and spoke with Wander in [facility] office. Pt CSF culture is growing mulitple organisms per Lalitha in lab. States it will or fri before all of the ID's are back. Wander states that she will pass the message on to Dr Palacios. Call made at [phone]. will notify primary RN
--- NOTE | 2020-10-16 09:51 | HMH.PHACONS ---
- Pharmacy Consult Date: 10/16/20 Time: 09:51 Referring provider: DR. LOZA Reason for Consult:: VANCOMYCIN LEVEL AND DOSE CHANGE Allergies and ADEs:: Allergies Allergy/AdvReac Type Severity Reaction Status Date / Time ceftriaxone [From Rocephin] Allergy Intermediate Anaphylaxis Verified 10/14/20 08:24 suture Allergy Mild Redness of Verified 10/14/20 09:18 Skin Home Medications:: Home Medications Medication Instructions Recorded Confirmed Type Cetirizine HCl [Zyrtec] 10 mg PO DAILY 03/17/18 10/13/20 History Duloxetine HCl [Cymbalta 30mg 30 mg PO BID 03/17/18 10/14/20 History capsule] Losartan Potassium [Cozaar] 50 mg PO DAILY 03/17/18 10/13/20 History albuterol sulfate 90 mcg/actuation 2 inhalation INHALATION [id number] PRN 10/03/20 10/15/20 History aerosol inhaler alprazolam 0.5 mg tablet 0.5 mg PO BIDP PRN tab 10/03/20 10/14/20 History Topiramate 100 mg PO DAILY 10/13/20 10/13/20 History Rosuvastatin Calcium 20 mg PO HS 10/14/20 10/14/20 History Height: 1.7 m Weight: 102.115 kg Laboratory Results:: Laboratory Results - last 24 hr 10/13/20 20:32: HIV 1&2 Ag/Ab, 4th Gen Non reactive 10/16/20 04:45: Vancomycin Trough 9.3 Medical History: Reports:: Anxiety, Asthma, Depression, Hyperlipidemia, Hypertension, Osteoporosis Denies:: Cancer, Diabetes Mellitus Type 1, Diabetes Mellitus Type 2, Internal Pacemaker, Lung Disease, MRSA, Seizures Assessment and Plan (1) Chronic meningitis Status: Acute Category: Medical Code(s): G03.1 - Chronic meningitis (2) Chronic daily headache Status: Acute Category: Medical Code(s): R51.9 - Headache, unspecified (3) Episodic confusion Status: Acute Category: Medical Code(s): R41.0 - Disorientation, unspecified (4) Hypertension Status: Acute Category: Medical Code(s): I10 - Essential (primary) hypertension (5) Hyperlipidemia Status: Acute Category: Medical Code(s): E78.5 - Hyperlipidemia, unspecified (6) Obstructive sleep apnea Status: Acute Category: Medical Code(s): G47.33 - Obstructive sleep apnea (adult) (pediatric) (7) Hyperglycemia Status: Acute Category: Medical Code(s): R73.9 - Hyperglycemia, unspecified (8) Lumbar spinal stenosis Status: Acute Category: Medical Code(s): M48.061 - Spinal stenosis, lumbar region without neurogenic claudication (9) Chronic back pain Status: Acute Category: Medical Code(s): M54.9 - Dorsalgia, unspecified; G89.29 - Other chronic pain (10) Depression with anxiety Status: Acute Category: Medical Code(s): F41.8 - Other specified anxiety disorders - Assessment and plan all Dx Assessment and Plan for all problems:: BASED ON PATIENT'S VANCOMYCIN TROUGH LEVEL OF 9.3 MCG/ML THIS AM PRIOR TO 3RD DOSE, RECOMMEND CHANGING DOSE FROM VANCOMYCIN 1750 MG Q18H TO VANCOMYCIN 2000 MG Q18H AT THIS TIME. PHARMACY WILL FOLLOW DAILY AND ADJUST APPROPRIATE.
[2020-10-16 15:36] VITALS: BP 136/76; PULSE 90; RESP 18; TEMP 36.8; O2SAT 95
[2020-10-16 19:40] VITALS: PULSE 88; RESP 16; O2SAT 96
[2020-10-16 20:00] VITALS: BP 159/92; PULSE 88; RESP 16; TEMP 36.9; O2SAT 96
[2020-10-17 04:00] VITALS: BP 162/92; PULSE 89; RESP 14; TEMP 36.7; O2SAT 98
--- NOTE | 2020-10-17 04:50 | PC.NURSE ---
no acute changes since prior assessment, pt has rested on and off t/o shift, no complaints of SOA or chest pain, afebrile, pt did complain of diarrhea at beginning of shift, ambulating to bathroom independently
[2020-10-17 05:06] VITALS: BMI 35.5
[2020-10-17 08:00] VITALS: BP 159/90; PULSE 95; RESP 19; TEMP 36.7; O2SAT 99
--- NOTE | 2020-10-17 08:35 | HMH.ACPN2 ---
<Monae Salmon - Last Filed: 10/17/20 08:38> Internal Medicine - PN: Subj *Date: 10/17/20 *Time: 08:38 Interval history: Patient feels she continues to improve. She still has periodic headaches. Her biggest problem now is that she has diarrhea. She states had about 15 stools since yesterday. She gets up to the bathroom and ambulates without difficulty. She is eating without problems. Spinal fluid is growing Pseudomonas fluorescence. Spoke with the lab and sensitivities should be completed today. Micro lab also stated that she is growing 2 additional bacteria that looked to be gram-positive cocci. Exam Vital signs and Labs for Last 24 Hours: Temp Pulse Resp BP Pulse Ox 98.1 F 95 H 19 159/90 H 99 10/17/20 08:00 10/17/20 08:00 10/17/20 08:00 10/17/20 08:00 10/17/20 08:00 Laboratory Results - last 24 hr 10/13/20 20:32: HIV 1&2 Ag/Ab, 4th Gen Non reactive I & O for Last 24 hours: Intake & Output 10/14/20 10/15/20 10/16/20 10/17/20 11:59 11:59 11:59 11:59 Intake Total 2009 2600 / 2600 2120 / 0 990 / 990 Balance 2009 2600 / 2600 0 / 0 990 / 990 Weight 228 lb 4.8 oz 230 lb 3 oz 225 lb 2 oz 226 lb 5 oz - Constitutional no acute distress Comments: Sitting up in the bed eating her breakfast. - *Routine Respiratory Exam Present: CTA bilaterally (Anteriorly and posteriorly) - *Routine Cardiovascular Exam Present: RRR - *Routine Abdominal Exam Present: soft, normoactive bowel sounds. Absent: tenderness - *Routine Extremities Exam Absent: edema, calf tenderness - *Routine Neurological Exam Present: alert, oriented X3 Cognition is excellent. Assessment and Plan (1) Chronic meningitis Status: Acute Category: Medical Code(s): G03.1 - Chronic meningitis (2) Chronic daily headache Status: Acute Category: Medical Code(s): R51.9 - Headache, unspecified (3) Episodic confusion Status: Acute Category: Medical Code(s): R41.0 - Disorientation, unspecified (4) Hypertension Status: Acute Category: Medical Code(s): I10 - Essential (primary) hypertension (5) Hyperlipidemia Status: Acute Category: Medical Code(s): E78.5 - Hyperlipidemia, unspecified (6) Obstructive sleep apnea Status: Acute Category: Medical Code(s): G47.33 - Obstructive sleep apnea (adult) (pediatric) (7) Hyperglycemia Status: Acute Category: Medical Code(s): R73.9 - Hyperglycemia, unspecified (8) Lumbar spinal stenosis Status: Acute Category: Medical Code(s): M48.061 - Spinal stenosis, lumbar region without neurogenic claudication (9) Chronic back pain Status: Acute Category: Medical Code(s): M54.9 - Dorsalgia, unspecified; G89.29 - Other chronic pain (10) Depression with anxiety Status: Acute Category: Medical Code(s): F41.8 - Other specified anxiety disorders (11) Diarrhea Status: Acute Category: Medical Code(s): R19.7 - Diarrhea, unspecified - Assessment and plan all Dx Assessment and Plan for all problems:: We will add Imodium for the diarrhea. We will continue with current antibiotics until sensitivities and other bacterial ID is reported <Peña Palacios - Last Filed: 10/17/20 18:19> Internal Medicine - PN: Subj *Date: 10/17/20 *Time: 18:17 Exam Vital signs and Labs for Last 24 Hours: Temp Pulse Resp BP Pulse Ox 98.6 F 86 18 152/91 H 96 10/17/20 15:46 10/17/20 15:46 10/17/20 15:46 10/17/20 15:46 10/17/20 15:46 I & O for Last 24 hours: Intake & Output 10/15/20 10/16/20 10/17/20 10/18/20 11:59 11:59 11:59 11:59 Intake Total 2599 / 2600 2119 / 2119 990 / 990 1070 / 1070 Balance 2600 / 2600 2119 / 2119 990 / 990 1070 / 1070 Weight 230 lb 3 oz 225 lb 2 oz 226 lb 5 oz Assessment and Plan (1) Chronic meningitis Status: Acute Category: Medical Code(s): G03.1 - Chronic meningitis (2) Chronic daily headache Status: Acute Category: Medical Code(s
[2020-10-17 15:46] VITALS: BP 152/91; PULSE 86; RESP 18; TEMP 37; O2SAT 96
--- NOTE | 2020-10-17 18:46 | PC.NURSE ---
Pt is alert and oriented x4. Lungs clear, bowel sounds active x4. She ambulates to the bathroom independently. She has received toradol x1 for headache with relief noted on reassessment. She has had imodium x2 this shift diarrhea with some relief noted. No other complaints verbalized. Will continue to monitor.
[2020-10-17 19:27] VITALS: BP 130/79; PULSE 95; RESP 18; TEMP 36.3; O2SAT 97
[2020-10-18 04:00] VITALS: BP 139/81; PULSE 95; RESP 16; TEMP 36.6; O2SAT 97
--- NOTE | 2020-10-18 04:21 | PC.NURSE ---
Pt is A&Ox4 and has ambulated to the BR several times this shift d/t watery diarrhea. Pt reports it looks just like water . Loperamide has been given x2. Pt reports nausea and GERD 1x, medicated with zofran with relief. ABD is soft, non-tender with active bowel sounds t/o. Pt also c/o headache, medicated with Toradol 1x with relief. Lungs CTA, room air sat 97%. VSS, call light within reach.
[2020-10-18 05:00] VITALS: BMI 35.8
[2020-10-18 07:36] VITALS: BP 141/84; PULSE 100; RESP 20; TEMP 36.8; O2SAT 95
--- NOTE | 2020-10-18 08:16 | HMH.ACPN2 ---
<Alisha Ortega - Last Filed: 10/18/20 08:16> Internal Medicine - PN: Subj *Date: 10/18/20 *Time: 08:16 Interval history: Patient states she is feeling well this morning. She denies any headache. She states the fogginess that she is felt in her head is cleared. She slept well and ate a good breakfast and wants to go home. Exam Vital signs and Labs for Last 24 Hours: Temp Pulse Resp BP Pulse Ox 98.3 F 100 H 20 141/84 H 95 10/18/20 07:36 10/18/20 07:36 10/18/20 07:36 10/18/20 07:36 10/18/20 07:36 I & O for Last 24 hours: Intake & Output 10/15/20 10/16/20 10/17/20 10/18/20 11:59 11:59 11:59 11:59 Intake Total 2600 / 2600 2120 / 2120 990 / 990 1820 / 1820 Balance 2600 / 2600 2120 / 2120 990 / 990 1820 / 1820 Weight 230 lb 3 oz 225 lb 2 oz 226 lb 5 oz 228 lb 4.8 oz - Constitutional no acute distress - *Routine Respiratory Exam Present: CTA bilaterally - *Routine Cardiovascular Exam Present: RRR - *Routine Abdominal Exam Present: soft, normoactive bowel sounds. Absent: tenderness - *Routine Extremities Exam Absent: cyanosis, clubbing, edema - *Routine Skin Exam Present: warm. Absent: rash - *Routine Neurological Exam Present: alert, oriented X3 Assessment and Plan (1) Chronic meningitis Status: Acute Category: Medical Code(s): G03.1 - Chronic meningitis (2) Chronic daily headache Status: Acute Category: Medical Code(s): R51.9 - Headache, unspecified (3) Episodic confusion Status: Acute Category: Medical Code(s): R41.0 - Disorientation, unspecified (4) Hypertension Status: Acute Category: Medical Code(s): I10 - Essential (primary) hypertension (5) Hyperlipidemia Status: Acute Category: Medical Code(s): E78.5 - Hyperlipidemia, unspecified (6) Obstructive sleep apnea Status: Acute Category: Medical Code(s): G47.33 - Obstructive sleep apnea (adult) (pediatric) (7) Hyperglycemia Status: Acute Category: Medical Code(s): R73.9 - Hyperglycemia, unspecified (8) Lumbar spinal stenosis Status: Acute Category: Medical Code(s): M48.061 - Spinal stenosis, lumbar region without neurogenic claudication (9) Chronic back pain Status: Acute Category: Medical Code(s): M54.9 - Dorsalgia, unspecified; G89.29 - Other chronic pain (10) Depression with anxiety Status: Acute Category: Medical Code(s): F41.8 - Other specified anxiety disorders (11) Diarrhea Status: Acute Category: Medical Code(s): R19.7 - Diarrhea, unspecified - Assessment and plan all Dx Assessment and Plan for all problems:: Patient will need continued IV antibiotics. Will likely need a PICC line. Will discuss with Dr. Palacios. <Peña Palacios - Last Filed: 10/18/20 10:58> Internal Medicine - PN: Subj *Date: 10/18/20 *Time: 10:55 Exam Vital signs and Labs for Last 24 Hours: Temp Pulse Resp BP Pulse Ox 98.3 F 100 H 20 141/84 H 95 10/18/20 07:36 10/18/20 07:36 10/18/20 07:36 10/18/20 07:36 10/18/20 07:36 I & O for Last 24 hours: Intake & Output 10/15/20 10/16/20 10/17/20 10/18/20 11:59 11:59 11:59 11:59 Intake Total 2600 / 2600 2119 / 0 990 / 990 1820 / 1820 Balance 2600 / 2600 0 / 2120 990 / 990 1820 / 1820 Weight 230 lb 3 oz 225 lb 2 oz 226 lb 5 oz 228 lb 4.8 oz Assessment and Plan (1) Chronic meningitis Status: Acute Category: Medical Code(s): G03.1 - Chronic meningitis (2) Chronic daily headache Status: Acute Category: Medical Code(s): R51.9 - Headache, unspecified (3) Episodic confusion Status: Acute Category: Medical Code(s): R41.0 - Disorientation, unspecified (4) Hypertension Status: Acute Category: Medical Code(s): I10 - Essential (primary) hypertension (5) Hyperlipidemia Status: Acute Category: Medical Code(s): E78.5 - Hyperlipidemia, unspecified (6) Obstructive sleep apnea Status: Acute Category: Medical Code(s): G47.33 - Ob
[2020-10-18 11:59] LABS: Vancomycin,Trough 16.7 ug/mL (5.0-10.0)
--- NOTE | 2020-10-18 13:00 | HMH.PHACONS ---
- Pharmacy Consult Date: 10/18/20 Time: 13:00 Referring provider: DR. LOZA Reason for Consult:: VANCOMYCIN TROUGH LEVEL Allergies and ADEs:: Allergies Allergy/AdvReac Type Severity Reaction Status Date / Time ceftriaxone [From Rocephin] Allergy Intermediate Anaphylaxis Verified 10/14/20 08:24 suture Allergy Mild Redness of Verified 10/14/20 09:18 Skin Home Medications:: Home Medications Medication Instructions Recorded Confirmed Type Cetirizine HCl [Zyrtec] 10 mg PO DAILY 03/17/18 10/13/20 History Duloxetine HCl [Cymbalta 30mg 30 mg PO BID 03/17/18 10/14/20 History capsule] Losartan Potassium [Cozaar] 50 mg PO DAILY 03/17/18 10/13/20 History albuterol sulfate 90 mcg/actuation 2 inhalation INHALATION [id number] PRN 10/03/20 10/15/20 History aerosol inhaler alprazolam 0.5 mg tablet 0.5 mg PO BIDP PRN tab 10/03/20 10/14/20 History Topiramate 100 mg PO DAILY 10/13/20 10/13/20 History Rosuvastatin Calcium 20 mg PO HS 10/14/20 10/14/20 History Height: 1.7 m Weight: 103.555 kg Laboratory Results:: Laboratory Results - last 24 hr 10/18/20 10:30: Vancomycin Trough 16.7 H Medical History: Reports:: Anxiety, Asthma, Depression, Hyperlipidemia, Hypertension, Osteoporosis Denies:: Cancer, Diabetes Mellitus Type 1, Diabetes Mellitus Type 2, Internal Pacemaker, Lung Disease, MRSA, Seizures Assessment and Plan (1) Chronic meningitis Status: Acute Category: Medical Code(s): G03.1 - Chronic meningitis (2) Chronic daily headache Status: Acute Category: Medical Code(s): R51.9 - Headache, unspecified (3) Episodic confusion Status: Acute Category: Medical Code(s): R41.0 - Disorientation, unspecified (4) Hypertension Status: Acute Category: Medical Code(s): I10 - Essential (primary) hypertension (5) Hyperlipidemia Status: Acute Category: Medical Code(s): E78.5 - Hyperlipidemia, unspecified (6) Obstructive sleep apnea Status: Acute Category: Medical Code(s): G47.33 - Obstructive sleep apnea (adult) (pediatric) (7) Hyperglycemia Status: Acute Category: Medical Code(s): R73.9 - Hyperglycemia, unspecified (8) Lumbar spinal stenosis Status: Acute Category: Medical Code(s): M48.061 - Spinal stenosis, lumbar region without neurogenic claudication (9) Chronic back pain Status: Acute Category: Medical Code(s): M54.9 - Dorsalgia, unspecified; G89.29 - Other chronic pain (10) Depression with anxiety Status: Acute Category: Medical Code(s): F41.8 - Other specified anxiety disorders (11) Diarrhea Status: Acute Category: Medical Code(s): R19.7 - Diarrhea, unspecified - Assessment and plan all Dx Assessment and Plan for all problems:: BASED ON PATIENT FACTORS AND VANCOMYCIN TROUGH LEVEL, RECOMMEND CONTINUING VANCOMYCIN 2 GM IV Q18H. PHARMACY WILL CONTINUE TO MONITOR DAILY AND ADJUST APPROPRIATE.
--- NOTE | 2020-10-18 14:16 | XR_ITS ---
PROCEDURE: XR CHEST PORTABLE PICC PLAC CLINICAL HISTORY: Confirm PICC line placement COMPARISON: CR XR CHEST PORTABLE from 10/13/2020 FINDINGS: Left upper extremity PICC line has been inserted. The tip is in good position in the region SVC. Normal heart size. The lungs are clear without infiltrates, suspicious nodules, or pleural effusions. No acute bony abnormalities. IMPRESSION: Left upper extremity PICC line in good position Dictated by: Junior Olivo MD 10/18/2020 15:50 Junior Olivo MD in [facility] 10/18/2020 15:50
[2020-10-18 15:40] VITALS: BP 148/88; PULSE 100; RESP 18; TEMP 36.7; O2SAT 97
--- NOTE | 2020-10-19 13:05 | HMH.DCSUM ---
General - General Admission date:: 10/13/20 <Peña Palacios - 11/05/20 22:32> 10/13/20 <JordanAlisha - 10/19/20 13:16> Discharge date: 10/18/20 <JordanAlisha - 10/19/20 13:16> HPI HPI: Ct is a 65-year-old white female with a history of hypertension, hyperlipidemia, anxiety disorder, sleep apnea, and chronic back pain due to spinal stenosis. She presented to the emergency room yesterday after receiving a call from the hospital that she needed to come in for evaluation for possible meningitis. History is that she has been having chronic, almost daily headaches for the past 6 months. She was seen in the office of [facility] at the end of August and was sent for an MRI which showed dural arachnoid enhancement with suggestion of several differential diagnoses. At this point she was referred to Dr. Mathew for neurology consultation. Dr. Mathew arranged for her to have a lumbar puncture which was carried out yesterday by Dr. Park. The spinal fluid showed 9 white blood cells and a total protein of nearly 500. It was at this point that she was notified and advised to go to the emergency room. She was evaluated in the ER and it was suggested that she would benefit from consultation with neurology and infectious disease at a tertiary care center. The ER physician contacted but apparently no beds are available due to the Covid pandemic. The ER physician discussed the case with a neurology attending at and it was his opinion that she did not have an acute life-threatening condition and could be admitted here for treatment with antibiotics pending the results of the spinal fluid cultures. Please refer to the ER note for specific details. At the time of my exam this morning, she continues to complain of headache which is mostly in the posterior cranium but also on top of her head. She states it is a bit worse than the headache she has been having for the past 6 months. Her daughter also reports that she has been a bit more confused at times. Ct has been aware of this. Dr. Mathew consultation note makes mention of episodic confusion for the past several months as well. She has also had intermittent nausea and vomiting. As part of her outpatient work-up thus far, she has had an elevated CRP with a normal sed rate. Fasting glucose is elevated but A1c was normal. The Lyme titer was negative. TB skin test was nonreactive. GEOVANY is pending. <Alisha Ortega - 10/19/20 13:16> Hospital Course Hospital Course: The patient was admitted with a working diagnosis of chronic meningitis based on her recent MRI and lumbar puncture. She was unable to be transferred to a tertiary care center due to scarcity of beds from the Covid pandemic. The neurology attending felt she should get IV antibiotics pending results of her CSF fluid cultures to rule out acute infectious etiology, therefore she was empirically started on IV Unasyn, vancomycin, and acyclovir. She was started on Toradol for her headache and Dr. Mathew had recently started her on Topamax as well and she felt this had been helpful, therefore it was continued. She did get some relief of her headaches from the Toradol but it only lasted 3 to 4 hours. She had initially felt foggy and this resolved. She was able to ambulate without difficulty and had a periodic headache, but it was much improved from admission. Her initial CSF Gram stain showed gram-positive cocci in pairs but her preliminary culture was growing gram-negative rods, therefore her Unasyn was changed to Levaquin for better gram-negative coverage. Her spinal fluid grew out Pseudomonas fluorescens, Burkholderia cepacia, and micrococcus. The lab was unable to obtain sensitivities to the Pseudomonas in-house and this had to be sent out to [facility]. The burkholderia was sensitive to Levaquin. The patient began having some diarrhea and she was started on Imodium. By 10/18/2020, she was feeling well and her headach
== END 2020-10-18 17:30 | disposition home or self-care (01) ==
LOC: ER 21:14 → 2ND 22:21
PROVIDERS: Emergency Medicine; Admitting Provider Family Medicine; Emergency Provider Emergency Medicine; PCP Family Medicine; Visit Provider Family Medicine
DX: G03.1 Chronic meningitis (principal); I10 Essential (primary) hypertension; E78.5 Hyperlipidemia, unspecified; R73.9 Hyperglycemia, unspecified; R51.9 Headache, unspecified; G47.33 Obstructive sleep apnea (adult) (pediatric); M48.061 Spinal stenosis, lumbar region without neurogenic claudication; M54.9 Dorsalgia, unspecified; F41.8 Other specified anxiety disorders; Z88.1 Allergy status to other antibiotic agents; Z79.51 Long term (current) use of inhaled steroids; Z79.899 Other long term (current) drug therapy; B96.5 Pseudomonas (aeruginosa) (mallei) (pseudomallei) as the cause of diseases classified elsewhere; B96.89 Other specified bacterial agents as the cause of diseases classified elsewhere; Z11.4 Encounter for screening for human immunodeficiency virus [HIV]
CPT/HCPCS: 36415; 36569; 62270; 62272; 71045; 80048; 80202; 82040; 82042; 82784; 82945; 83916; 84155; 85025; 86328; 86592; 86703; 87070; 87077; 87102; 87116; 87186; 87205; 87206; 87476; 87529; 88112; 89051; 96365; 96367; 96372; 96375; 99284; C1751; G0378; G0432; J1956; J2405; J3370

== ENCOUNTER 2020-10-19 11:00 | Outpatient (CLI) | payer MEDICARE, SELFPAY ==
[2020-10-19 11:35] VITALS: BP 136/78; PULSE 84; RESP 18; TEMP 36.8; O2SAT 96
[2020-10-19 12:05] VITALS: BP 150/79; PULSE 86; RESP 18
[2020-10-19 12:35] VITALS: BP 161/82; PULSE 83; RESP 18
[2020-10-19 13:05] VITALS: BP 142/87; PULSE 80; RESP 18
[2020-10-19 13:35] VITALS: BP 169/95; PULSE 78; RESP 18
== END 2020-10-19 13:50 | disposition home or self-care (01) ==
LOC: INF 11:10
PROVIDERS: Visit Provider Family Medicine
DX: G03.1 Chronic meningitis (principal); R51.9 Headache, unspecified; R41.0 Disorientation, unspecified
CPT/HCPCS: 96365; 96366; J3370

== ENCOUNTER 2020-10-20 09:00 | Outpatient (CLI) | payer MEDICARE, SELFPAY ==
[2020-10-20 09:15] VITALS: BP 132/73; PULSE 93; RESP 18; TEMP 36.3; O2SAT 96
[2020-10-20 09:45] VITALS: BP 156/77; PULSE 84; RESP 18
[2020-10-20 10:15] VITALS: BP 156/88; PULSE 80; RESP 18
[2020-10-20 10:45] VITALS: BP 166/85; PULSE 77; RESP 18
[2020-10-20 11:15] VITALS: BP 158/81; PULSE 77; RESP 18
== END 2020-10-20 11:25 | disposition home or self-care (01) ==
LOC: INF 09:05
PROVIDERS: Visit Provider Family Medicine
DX: G03.1 Chronic meningitis (principal); R51.9 Headache, unspecified
CPT/HCPCS: 96365; 96366; J3370

== ENCOUNTER → 2020-10-21 08:42 | Outpatient (CLI) | payer MEDICARE, SELFPAY ==
[2020-10-21 10:00] VITALS: BP 129/72; PULSE 95; RESP 14; TEMP 36.6; O2SAT 96
[2020-10-21 11:40] VITALS: BP 139/77; PULSE 81; RESP 16; TEMP 36.9; O2SAT 97
== END ==
PROVIDERS: PCP Family Medicine; Visit Provider Family Medicine
DX: G03.1 Chronic meningitis (principal)
CPT/HCPCS: 96365; 96366; J3370

== ENCOUNTER 2020-10-22 09:18 | Outpatient (CLI) | payer MEDICARE, SELFPAY ==
[2020-10-22 09:15] VITALS: BP 155/85; PULSE 80; RESP 18; TEMP 36.7; O2SAT 96
[2020-10-22 09:49] VITALS: BMI 35.8
[2020-10-22 10:11] LABS: Vancomycin,Trough 20.7 ug/mL (5.0-10.0)
--- NOTE | 2020-10-22 13:44 | HMH.PHACONS ---
- Pharmacy Consult Date: 10/22/20 Time: 13:44 Referring provider: DR. LOZA Reason for Consult:: VANCOMYCIN TROUGH LEVEL AND DOSE CHANGE Allergies and ADEs:: Allergies Allergy/AdvReac Type Severity Reaction Status Date / Time ceftriaxone [From Rocephin] Allergy Intermediate Anaphylaxis Verified 10/14/20 08:24 suture Allergy Mild Redness of Verified 10/14/20 09:18 Skin Home Medications:: Home Medications Medication Instructions Recorded Confirmed Type Cetirizine HCl [Zyrtec 10mg ODT*] 10 mg PO DAILY 03/17/18 10/20/20 History Duloxetine HCl [Cymbalta 30mg 30 mg PO BID 03/17/18 10/20/20 History capsule] Losartan Potassium [Cozaar 50mg 50 mg PO DAILY 03/17/18 10/20/20 History Tablets] albuterol sulfate 90 mcg/actuation 2 inhalation INHALATION [id number] PRN 10/03/20 10/20/20 History aerosol inhaler alprazolam 0.5 mg tablet 0.5 mg PO BIDP PRN tab 10/03/20 10/20/20 History Rosuvastatin Calcium 20 mg PO HS 10/14/20 10/20/20 History Ibuprofen [Ibuprofen 600mg 600 mg PO Q6HP PRN 10 Days #40 tab 10/18/20 10/20/20 Rx Tablet] Ciprofloxacin HCl [Cipro 500mg 500 mg PO BID 10/19/20 10/20/20 History Tab] Pantoprazole Sodium [Protonix 40mg 40 mg PO HS 10/19/20 10/20/20 History tablet] Topiramate [Topamax 25mg tablet] 25 mg PO HS 10/19/20 10/20/20 History Height: 1.7 m Weight: 103.5 kg Laboratory Results:: Laboratory Results - last 24 hr 10/22/20 09:15: Vancomycin Trough 20.7 H Medical History: Reports:: Anxiety, Asthma, Depression, Hyperlipidemia, Hypertension, Osteoporosis Denies:: Cancer, Diabetes Mellitus Type 1, Diabetes Mellitus Type 2, Internal Pacemaker, Lung Disease, MRSA, Seizures Assessment and Plan - Assessment and plan all Dx Assessment and Plan for all problems:: BASED ON PATIENT'S VANCOMYCIN TROUGH LEVEL OF 20.7 MCG/ML TODAY, RECOMMEND CHANGING DOSE TO VANCOMYCIN 2000 MG Q24H AT THIS TIME FOR THE REMAINING 3 DOSES.
== END 2020-10-22 12:55 | disposition home or self-care (01) ==
LOC: INF 09:18
PROVIDERS: PCP Family Medicine; Visit Provider Family Medicine
DX: G03.1 Chronic meningitis (principal); Z51.81 Encounter for therapeutic drug level monitoring
CPT/HCPCS: 80202; 96365; 96366; J3370

== ENCOUNTER 2020-10-23 08:57 | Outpatient (CLI) | payer MEDICARE, SELFPAY ==
[2020-10-23 09:39] VITALS: BP 151/94; PULSE 88; RESP 18; TEMP 36.4; O2SAT 97
[2020-10-23 09:46] VITALS: BMI 35.5
[2020-10-23 09:59] LABS: Chloride 108 mmol/L (98-107); Sodium 141 mmol/L (136-145)
[2020-10-23 10:00] LABS: Potassium 3.7 mmoL/L (3.5-5.1)
[2020-10-23 10:03] LABS: Anion Gap 11.7 mEq/L (5-15); Blood Urea Nitrogen 17 mg/dl (7-17); Calcium 9.4 mg/dl (8.4-10.2); Carbon Dioxide 25 mmol/L (22.0-30.0); Creatinine Clearance Estimated 48 mL/min (50-200); Estimated Glomerular Filt Rate 28 ml/min (>60); GFR (African American) 34 ML/MIN (>60); Glucose 130 mg/dl (74-100)
[2020-10-23 10:35] VITALS: BP 159/85; PULSE 85; RESP 16
[2020-10-23 11:35] VITALS: BP 160/82; PULSE 84; RESP 16; O2SAT 98
[2020-10-23 11:55] VITALS: BP 161/90; PULSE 80; RESP 18; TEMP 36.6; O2SAT 97
== END 2020-10-23 12:00 | disposition home or self-care (01) ==
LOC: INF 08:57
PROVIDERS: Visit Provider Family Medicine
DX: G03.1 Chronic meningitis (principal); R51.9 Headache, unspecified
CPT/HCPCS: 80048; 96365; 96366; J3370

== ENCOUNTER 2020-10-24 08:51 | Outpatient (CLI) | payer MEDICARE, SELFPAY ==
[2020-10-24 08:57] VITALS: BMI 35.5
[2020-10-24 09:18] LABS: Basophils # 0.1 K/mm3 (0-0.2); Basophils % 0.5 % (0.1-2.0); Eosinophils # 0.3 K/mm3 (0.0-0.4); Eosinophils % 3.1 % (0.1-12.0); Hemoglobin 12.4 g/dL (12.2-16.2); Lymphocytes # 2.1 K/mm3 (0.7-4.5); Lymphocytes % 23.5 % (10-50); Mean Corpuscular HGB Conc 31.9 g/dL (31.8-35.4); Mean Corpuscular Hemoglobin 30.4 pg (27.0-31.2); Mean Corpuscular Volume 95.3 fl (81-99); Mean Platelet Volume 7.4 fl (7.4-10.4); Monocytes # 0.3 K/mm3 (0.1-1.0); Monocytes % 3.9 % (1.7-9.3); Neutrophils # 6.1 K/mm3 (1.8-7.8); Platelet Count 250 K/mm3 (142-424); Red Cell Distribution Width 13.7 % (11.5-17.5); White Blood Count 8.8 K/mm3 (4.8-10.8)
[2020-10-24 09:33] LABS: Chloride 107 mmol/L (98-107); Potassium 3.5 mmoL/L (3.5-5.1); Sodium 142 mmol/L (136-145)
[2020-10-24 09:36] LABS: Anion Gap 13.5 mEq/L (5-15); Blood Urea Nitrogen 18 mg/dl (7-17); Calcium 9.5 mg/dl (8.4-10.2); Carbon Dioxide 25 mmol/L (22.0-30.0); Creatinine Clearance Estimated 51 mL/min (50-200); Estimated Glomerular Filt Rate 30 ml/min (>60); GFR (African American) 36 ML/MIN (>60); Glucose 186 mg/dl (74-100)
[2020-10-24 10:06] LABS: Vancomycin,Trough 20.8 ug/mL (5.0-10.0)
[2020-10-24 10:17] VITALS: BP 159/82; PULSE 85; RESP 18; TEMP 36.6; O2SAT 98
--- NOTE | 2020-10-24 10:30 | HMH.PHACONS ---
- Pharmacy Consult Date: 10/24/20 Time: 10:30 Referring provider: DR. LOZA Reason for Consult:: VANCOMYCIN TROUGH LEVEL Allergies and ADEs:: Allergies Allergy/AdvReac Type Severity Reaction Status Date / Time ceftriaxone [From Rocephin] Allergy Intermediate Anaphylaxis Verified 10/23/20 11:14 suture Allergy Mild Redness of Verified 10/23/20 11:14 Skin Home Medications:: Home Medications Medication Instructions Recorded Confirmed Type Cetirizine HCl [Zyrtec 10mg ODT*] 10 mg PO DAILY 03/17/18 10/23/20 History Duloxetine HCl [Cymbalta 30mg 30 mg PO BID 03/17/18 10/23/20 History capsule] Losartan Potassium [Cozaar 50mg 50 mg PO DAILY 03/17/18 10/23/20 History Tablets] albuterol sulfate 90 mcg/actuation 2 inhalation INHALATION [id number] PRN 10/03/20 10/23/20 History aerosol inhaler alprazolam 0.5 mg tablet 0.5 mg PO BIDP PRN tab 10/03/20 10/23/20 History Rosuvastatin Calcium 20 mg PO HS 10/14/20 10/23/20 History Ibuprofen [Ibuprofen 600mg 600 mg PO Q6HP PRN 10 Days #40 tab 10/18/20 10/23/20 Rx Tablet] Ciprofloxacin HCl [Cipro 500mg 500 mg PO BID 10/19/20 10/23/20 History Tab] Pantoprazole Sodium [Protonix 40mg 40 mg PO HS 10/19/20 10/23/20 History tablet] Topiramate [Topamax 25mg tablet] 25 mg PO HS 10/19/20 10/23/20 History Height: 1.68 m Weight: 99.79 kg Laboratory Results:: Laboratory Results - last 24 hr 10/24/20 09:00: WBC 8.8, RBC 4.10 L, Hgb 12.4, Hct 39.0, MCV 95.3, MCH 30.4, MCHC 31.9, RDW 13.7, Plt Count 250, MPV 7.4, Neut % (Auto) 69.0, Lymph % (Auto) 23.5, [place] % (Auto) 3.9, Eos % (Auto) 3.1, Baso % (Auto) 0.5, Neut # (Auto) 6.1, Lymph # (Auto) 2.1, [place] # (Auto) 0.3, Eos # (Auto) 0.3, Baso # (Auto) 0.1 10/24/20 09:00: Sodium 142, Potassium 3.5, Chloride 107, Carbon Dioxide 25, Anion Gap 13.5, BUN 18 H, Creatinine 1.70 H, Estimated Creat Clear 51, Estimated GFR 30 L, Est GFR ( Amer) 36 L, Glucose 186 H D, Calcium 9.5 10/24/20 09:00: Vancomycin Trough 20.8 H Medical History: Reports:: Anxiety, Asthma, Depression, Hyperlipidemia, Hypertension, Osteoporosis Denies:: Cancer, Diabetes Mellitus Type 1, Diabetes Mellitus Type 2, Internal Pacemaker, Lung Disease, MRSA, Seizures Assessment and Plan - Assessment and plan all Dx Assessment and Plan for all problems:: BASED ON PATIENT FACTORS AND VANCOMYCIN TROUGH LEVEL OF 20.8, RECOMMEND GIVING LAST DOSE OF 2,000MG TODAY. -MADIHA VO PHARMD
[2020-10-24 10:45] VITALS: BP 161/89; PULSE 82; RESP 16; O2SAT 98
[2020-10-24 11:15] VITALS: BP 166/90; PULSE 81; RESP 18; TEMP 36.6; O2SAT 97
[2020-10-24 11:45] VITALS: BP 152/79; PULSE 86; RESP 16; O2SAT 98
[2020-10-24 12:15] VITALS: BP 164/82; PULSE 84; RESP 18; TEMP 36.6; O2SAT 99
[2020-10-24 12:45] VITALS: BP 160/85; PULSE 88; RESP 18; TEMP 36.6; O2SAT 98
== END 2020-10-24 13:00 | disposition home or self-care (01) ==
LOC: INF 08:51
PROVIDERS: Visit Provider Family Medicine
DX: G03.1 Chronic meningitis (principal); Z45.2 Encounter for adjustment and management of vascular access device; Z51.81 Encounter for therapeutic drug level monitoring
CPT/HCPCS: 80048; 80202; 85025; 96365; 96366; J3370

== ENCOUNTER → 2020-11-16 10:18 | Outpatient (CLI) | payer MEDICARE, SELFPAY ==
--- NOTE | 2020-11-16 10:37 | MR_ITS ---
PROCEDURE: MR HEAD/BRAIN WO CON CLINICAL INDICATION: repeat eval, prior abnormal MRI FOLLOW-UP MRI, PT STATES SHE HAD MENINGTIS IN OCTOBER 2020. PRIOR MRI 09-08-20 COMPARISON: MR MR HEAD/BRAIN WO/W CON from 09/08/2020 TECHNIQUE: Routine multiplanar multi echo sequences are performed without gadolinium enhancement. FINDINGS: No midline shift or mass effect is evident. No evidence of acute infarction. There are scattered T2 white matter hyperintensities. Hyperintense T2 focus is present in the right basal ganglia measuring 10 mm not significantly changed. Unfortunately, gadolinium enhancement was not performed. There is an rind of isointense T1 and increased T2 signal surrounding the brain in the subdural region which is developed in the interval. There is no evidence of hydrocephalus. The cerebellopontine angles and cerebellum have an unremarkable appearance. The pituitary, optic chiasm, corpus callosum, and craniocervical junction appear unremarkable. There is moderate mucosal thickening of the left maxillary sinus and mucosal thickening of the left aspect of the sphenoid sinus and ethmoid sinuses. The pre pontine and basilar cistern appears somewhat more prominent with slight increase in T2 signal. This however is questionable. No mastoid effusion. IMPRESSION: 1. There has been interval development a thin rind of isointense T1 and increased T2 signal around the brain in the subdural region. Unfortunately, IV contrast was not utilized to compare this to the enhancement noted on the previous exam. The differential diagnosis remains the same as the previous exam. Findings could be related to prior surgery, infection/meningitis, neoplasm, intracranial hypotension or granulomatous disease. 2. No change in the T2 white matter hyperintensities which are nonspecific and could be related to ischemic gliotic change. 3. Paranasal sinus disease Dictated by: Junior Olivo MD 11/17/2020 11:26 Junior Olivo MD in [place] 11/17/2020 11:26
[2020-11-16 11:04] LABS: Basophils % 0.5 % (0.1-2.0); Eosinophils # 0.2 K/mm3 (0.0-0.4); Eosinophils % 3.5 % (0.1-12.0); Hematocrit 39.3 % (37.0-47.0); Hemoglobin 13.4 g/dL (12.2-16.2); Lymphocytes # 2.3 K/mm3 (0.7-4.5); Lymphocytes % 33.3 % (10-50); Mean Corpuscular HGB Conc 34.1 g/dL (31.8-35.4); Mean Corpuscular Hemoglobin 30.8 pg (27.0-31.2); Mean Corpuscular Volume 90.5 fl (81-99); Mean Platelet Volume 8.1 fl (7.4-10.4); Monocytes # 0.3 K/mm3 (0.1-1.0); Monocytes % 4.6 % (1.7-9.3); Neutrophils % 58.1 % (37.0-80.0); Platelet Count 232 K/mm3 (142-424); Red Blood Count 4.35 M/mm3 (4.20-5.40); Red Cell Distribution Width 13.8 % (11.5-17.5); White Blood Count 6.8 K/mm3 (4.8-10.8)
[2020-11-16 11:49] LABS: Coronavirus 19 IgG Antibody Positive (Negative)
[2020-11-16 11:50] LABS: Coronavirus 19 IgM Antibody Positive (Negative)
[2020-11-16 12:08] LABS: Chloride 106 mmol/L (98-107); Potassium 3.6 mmoL/L (3.5-5.1); Sodium 142 mmol/L (136-145)
[2020-11-16 12:11] LABS: Anion Gap 14.6 mEq/L (5-15); Blood Urea Nitrogen 18 mg/dl (7-17); Carbon Dioxide 25 mmol/L (22.0-30.0); Estimated Glomerular Filt Rate 55 ml/min (>60); GFR (African American) 67 ML/MIN (>60)
[2020-11-16 12:12] LABS: Calcium 9.8 mg/dl (8.4-10.2); Glucose 135 mg/dl (74-100)
[2020-11-20 11:17] LABS: HIV 1 RNA, Real time PCR <20 copies/mL (.)
== END ==
PROVIDERS: Nurse Practitioner Family; Visit Provider Specialist
DX: Z20.822 Contact with and (suspected) exposure to COVID-19 (principal); R79.89 Other specified abnormal findings of blood chemistry; G03.1 Chronic meningitis; I10 Essential (primary) hypertension; R90.89 Other abnormal findings on diagnostic imaging of central nervous system; Z11.4 Encounter for screening for human immunodeficiency virus [HIV]; Z79.899 Other long term (current) drug therapy; G89.29 Other chronic pain; R51.9 Headache, unspecified; Z86.16 Personal history of COVID-19
CPT/HCPCS: 36415; 70551; 80048; 85025; 86328; 87536

== ENCOUNTER → 2020-12-04 07:57 | Outpatient (CLI) | payer MEDICARE, SELFPAY ==
[2020-12-04 08:20] LABS: Blood Urea Nitrogen 14 mg/dl (7-17); Estimated Glomerular Filt Rate 55 ml/min (>60); GFR (African American) 67 ML/MIN (>60)
--- NOTE | 2020-12-04 08:30 | MR_ITS ---
PROCEDURE: MR HEAD/BRAIN W CON CLINICAL INDICATION: Follow-up abnormal MRI. Meningitis. ABNORMAL PRIOR MRI 11-16-20. MENINGITIS IN OCT. 20ML PROHANCE GIVEN. 20ML LOT:[id number] EXP: DEC 2022 BUN:14 CRE:1.0 GFR:55 COMPARISON: MR MR HEAD/BRAIN WO/W CON from 09/08/2020 MR MR HEAD/BRAIN WO CON from 11/16/2020 TECHNIQUE: Axial T1 and post enhanced T1 as well as post enhanced coronal T1 weighted images are obtained supplement the previous MRI 11/16/2020 which was performed without contrast.. FINDINGS: There is diffuse meningeal enhancement in both supra and infratentorial region. There is enhancement at the base of the skull in the pre pontine cistern and anterior to the brainstem. The enhancement is more prominent compared to the previous exam and is now present along the tentorium and is also more prominent in the skull base in the pre pontine region and anterior to the brainstem. No parenchymal enhancing lesions are evident. IMPRESSION: Persistent diffuse leptomeningeal enhancement which is more prominent compared to the previous exam. Differential diagnosis remains the same and includes meningitis, neoplasm, granulomatous disease/infection and intracranial hypotension Dictated by: Junior Olivo MD 12/05/2020 10:03 Junior Olivo MD in [place] 12/05/2020 10:03
== END ==
PROVIDERS: PCP Family Medicine; Visit Provider Specialist
DX: G03.1 Chronic meningitis (principal); G89.29 Other chronic pain; R51.9 Headache, unspecified; R90.89 Other abnormal findings on diagnostic imaging of central nervous system
CPT/HCPCS: 36415; 70552; 82565; 84520; A9576

== ENCOUNTER → 2020-12-12 08:52 | Outpatient (CLI) | payer MEDICARE, SELFPAY ==
[2020-12-12 09:38] LABS: Basophils # 0.1 K/mm3 (0-0.2); Basophils % 0.9 % (0.1-2.0); Eosinophils # 0.2 K/mm3 (0.0-0.4); Eosinophils % 2.5 % (0.1-12.0); Hematocrit 38.9 % (37.0-47.0); Lymphocytes # 2.9 K/mm3 (0.7-4.5); Lymphocytes % 37.5 % (10-50); Mean Corpuscular HGB Conc 33.4 g/dL (31.8-35.4); Mean Corpuscular Hemoglobin 30.5 pg (27.0-31.2); Mean Corpuscular Volume 91.1 fl (81-99); Mean Platelet Volume 8.2 fl (7.4-10.4); Monocytes # 0.3 K/mm3 (0.1-1.0); Monocytes % 4.1 % (1.7-9.3); Neutrophils # 4.3 K/mm3 (1.8-7.8); Neutrophils % 55.1 % (37.0-80.0); Platelet Count 266 K/mm3 (142-424); Red Blood Count 4.28 M/mm3 (4.20-5.40); Red Cell Distribution Width 14.4 % (11.5-17.5); White Blood Count 7.8 K/mm3 (4.8-10.8)
[2020-12-12 09:51] LABS: Chloride 105 mmol/L (98-107); Potassium 4.1 mmoL/L (3.5-5.1); Sodium 141 mmol/L (136-145)
[2020-12-12 09:54] LABS: Anion Gap 10.1 mEq/L (5-15); Blood Urea Nitrogen 18 mg/dl (7-17); Calcium 9.9 mg/dl (8.4-10.2); Carbon Dioxide 30 mmol/L (22.0-30.0); Estimated Glomerular Filt Rate 63 ml/min (>60); GFR (African American) 76 ML/MIN (>60); Glucose 135 mg/dl (74-100)
== END ==
PROVIDERS: PCP Specialist; Visit Provider Specialist
DX: Z01.812 Encounter for preprocedural laboratory examination (principal); Z20.822 Contact with and (suspected) exposure to COVID-19; G03.1 Chronic meningitis
CPT/HCPCS: 36415; 80048; 85025; U0003

== ENCOUNTER 2020-12-13 11:10 | Day surgery (SDC) | payer MEDICARE, SELFPAY ==
[2020-12-11 13:10] VITALS: BMI 35.5
[2020-12-13 11:44] VITALS: BP 168/92; PULSE 96; RESP 18; TEMP 36.7; O2SAT 97
[2020-12-13 14:30] VITALS: BP 147/87; PULSE 89; RESP 18; TEMP 36.3; O2SAT 96
--- NOTE | 2020-12-13 14:37 | HMH.OPNOTE ---
Date of procedure: 12/13/20 Pre-op Diagnosis:: Chronic meningitis Post-op Diagnosis:: Same Procedure performed:: Lumbar puncture in OR with sedation Surgeon:: Ken Park MD AX SURVEY WORKER:: Naveed Almaraz Anesthesia: MAC Estimated blood loss (mL): 1 Clinical Note:: Is a pleasant 65-year-old white female who has been suffering with chronic meningitis. At her last lumbar puncture we were unable to get adequate fluid however it was discovered she had meningitis at the time. She was treated with IV antibiotics. This was several weeks ago. She presents for repeat lumbar puncture today to obtain opening pressure and fluid to send for studies ordered by Dr. Mathew. We will do this in the OR with sedation as she was uncomfortable at her last procedure. Operative findings:: Opening pressure 19 cm of water. Closing pressure 9 cm of water. We obtained approximately 12 to 15 mL of clear fluid placed into a total of 4 tubes. Operative note:: Informed consent was obtained and the risk and benefits of the procedure were explained to the patient. The patient was taken to the operating room placed in a left lateral decubitus position. C-arm fluoroscopy was used and a AP view to the spine to identify the L5-S1 interspace. The skin and subcutaneous tissues were anesthetized using lidocaine. A 20-gauge spinal needle was inserted and advanced under fluoroscopic guidance into the intrathecal space. After obtaining clear CSF opening pressures were taken and found to be 19 cm of water. We filled 4 tubes with approximately 12 to 15 mL of clear CSF in total. Closing pressures were found to be 9 cm of water. The needle was removed Band-Aid was placed. The patient was taken recovery in stable condition. Patient tolerated the procedure well with no complications. Patient was advised to lie flat as much as possible We also counseled her on conservative treatments for post dural puncture headache including Excedrin Migraine, hydration and rest. Patient was discharged home neurologically intact and with no headache at the time. Plan and disposition: We will follow with you. Thank you for the consultation. If the patient does develop a post dural puncture headache she is to call us back in the pain clinic. We will do lumbar epidural blood patch. Condition: stable Disposition: PACU Complications:: None
--- NOTE | 2020-12-13 14:40 | P.PN_ITS ---
[facility] Anesthesia Checklist - Patient Identification Patient Identification: Arm Band - Structural Data Admitted From: Home Planned Operative Procedure/s: Lumbar Puncture under fluorscopy Consent for Planned Operative Procedure(s) Verified: Yes Verified Documents: Surgical Consent, History and Physical - NPO Status Verified Time NPO: 00:00 - Additional verifications Anesthesia Reactions: No Hx Blood Transfusions: No Blood Transfusion Reaction: No - Airway Assessment C-Spine Mobility Assessed: Yes (mp2) TMJ Mobility Assessed: Yes Dentition: Good Dentition - Neurological Assessment Level of Consciousness: Awake, Alert - Anesthesia Plan Anesthesia Risk discussed: Yes Anesthesia Plan: Verified ASA Class: II Anesthesia Type: MAC [facility] History I have reviewed the patient's past medical history: Yes Medical History: Reports:: Anxiety, Asthma, Depression, Hyperlipidemia, Hypertension, Osteoporosis Denies:: Cancer, Diabetes Mellitus Type 1, Diabetes Mellitus Type 2, Internal Pacemaker, Lung Disease, MRSA, Seizures *Have you ever received a pneumonia vaccine?: Yes *Have you received a flu vaccine this season?: No Other Medical History: Reports: Anemia, Arthritis, Osteoporosis, Sinus Problems, Other (Spinal stenosis with chronic back pain; sleep apnea). Denies: Blood Transfusion Reaction Anesthesia experience/problems:: nac Laterality Cases: Bilateral: Carpal Tunnel Release Other Surgeries: Yes: Cholecystectomy, Colonoscopy, Colon Resection, EGD, Hysterectomy-Partial, Sinus Surgery (+DEVIATED SEPTUM REPAIR), Tubal Ligation, Other (excision lumbar synovial cyst). No: Pacemaker Amputation: No Fractures: No - *Social History Last grade of school completed: Some college Smoking Status: Former smoker Alcohol Intake: never Alcohol Intake Frequency:: holidays/special occasions only Substance Use Type: denies use *Occupational Status:: employed Housing: house Household Members: spouse *Travel in the last 8 weeks: None - Psychiatric History Pschychiatric History:: Reports:: Anxiety, Depression Family Hx:: No significant family history
[2020-12-13 14:45] VITALS: BP 154/90; PULSE 83; RESP 18; TEMP 36.3; O2SAT 97
[2020-12-13 15:00] VITALS: BP 167/92; PULSE 81; RESP 18; TEMP 36.3; O2SAT 99
[2020-12-13 15:02] LABS: Glucose,CSF 60 mg/dl (40-70)
[2020-12-13 15:15] VITALS: BP 164/89; PULSE 80; RESP 18; TEMP 36.3; O2SAT 98
[2020-12-13 15:27] LABS: Appearance,CSF Clear (Clear); Volume,CSF 8.5 mL
[2020-12-13 15:32] VITALS: BP 156/80; PULSE 80; RESP 18; TEMP 36.3; O2SAT 98
[2020-12-13 15:50] LABS: Red Blood Cell,CSF 80 cells/uL (0); White Blood Cell,CSF 3 cells/uL (0-5)
[2020-12-13 15:51] LABS: Red Blood Cell,CSF 249 cells/uL (0); White Blood Cell,CSF 5 cells/uL (0-5)
[2020-12-15 15:02] LABS: CEA, Fluid <0.6 ng/mL (Not Estab.)
[2020-12-15 15:32] LABS: Albumin 3.9 g/dL (3.8-4.8); Albumin, CSF 45 mg/dL (11-48); CSF IgG Index 0.6 (0.0-0.7); IgG, Quant, CSF 7.1 mg/dL (0.0-8.6); IgG, Syn Rate, CSF 6.3 mg/day (-9.9 TO +3.3); IgG/Albumin Ratio, CSF 0.16 (0.00-0.25); Immunoglobulin G, Qn, Serum 1005 mg/dL (586-1602)
[2020-12-15 17:07] LABS: CSF/Serum Alb. Index 12 (0-8)
[2020-12-16 15:44] LABS: Cryptococcus Antigen, CSF Negative (Negative)
[2020-12-16 15:55] LABS: CAP Mandated Reflex to Culture Not Indicated (.)
[2020-12-18 22:38] LABS: VDRL, Cerebrospinal Fluid Non Reactive (Non Rea:<1:1)
[2020-12-19 15:37] LABS: CSF Lyme (B. burgdorferi) PCR Negative (Negative)
== END 2020-12-13 15:32 | disposition home or self-care (01) ==
LOC: OR 11:11
PROVIDERS: PCP Family Medicine; Visit Provider Anesthesiology
PROC: (CPT 62270; principal; 2020-12-13 12:30)
DX: G03.1 Chronic meningitis (principal)
CPT/HCPCS: 62270; 82040; 82042; 82378; 82784; 82945; 83916; 84155; 86592; 87070; 87102; 87116; 87205; 87206; 87476; 87899; 88112; 89051

== ENCOUNTER → 2021-01-09 11:49 | Outpatient (CLI) | payer MEDICARE, SELFPAY ==
[2021-01-09 12:46] LABS: Chloride 107 mmol/L (98-107); Sodium 142 mmol/L (136-145)
[2021-01-09 12:47] LABS: Potassium 4.1 mmoL/L (3.5-5.1)
[2021-01-09 12:50] LABS: Anion Gap 10.1 mEq/L (5-15); Blood Urea Nitrogen 21 mg/dl (7-17); Calcium 9.9 mg/dl (8.4-10.2); Carbon Dioxide 29 mmol/L (22.0-30.0); Estimated Glomerular Filt Rate 55 ml/min (>60); GFR (African American) 67 ML/MIN (>60); Glucose 108 mg/dl (74-100)
== END ==
PROVIDERS: Visit Provider Specialist
DX: G03.1 Chronic meningitis (principal); G89.29 Other chronic pain; M48.061 Spinal stenosis, lumbar region without neurogenic claudication
CPT/HCPCS: 36415; 80048

== ENCOUNTER → 2021-01-11 10:48 | Outpatient (CLI) | payer MEDICARE, SELFPAY ==
--- NOTE | 2021-01-11 10:48 | MR_ITS ---
PROCEDURE: MR LUMBAR SPINE WO/W CON CLINICAL INDICATION: chronic radicular pain with history of prior surge HX 2 BACK SURGERIES-LAST ONE WAS 10YRS AGO. NUMBNESS AND PAIN IN LOW BACK. BILATERAL LEG PAIN, NUMBNESS, AND BURNING WORSE ON LT SIDE XYRS. COMPARISON: MR CHIEF MEDICAL DIRECTOR/O MRI-L-SPINE W/O from 06/09/2014 TECHNIQUE: Standard multiplanar multiecho sequences are performed without contrast. 3-D MIP and myelographic images are also rendered and reviewed FINDINGS: There is normal alignment. The spinal cord ends the T12-L1 level. T12-L1: Unremarkable. L1-L2: Mild degenerative disc disease. Small anterior osteophytes. L2-L3: Mild degenerative disc disease with mild facet and ligamentum hypertrophy with mild left lateral recess narrowing. L3-L4: Mild facet ligamentum hypertrophy. L4-5: Facet and ligamentum hypertrophic change with left foraminal narrowing and minimal bulging disc. Prominent facet hypertrophic changes are present on the left at this level. There appears to be a small laminotomy defect on the left. There is some clumping of the nerve roots on the left at this level which may represent postsurgical change and can be seen also with arachnoiditis. There is some minimal enhancement in this region as well. L5-S1: Facet and ligamentum hypertrophic changes.. No canal stenosis or extruded herniated disc apparent. IMPRESSION: 1. Mild lumbar spondylosis as detailed above. Please see above for detailed description at each level. 2. At L4-5, there is facet and ligamentum hypertrophic change with left foraminal narrowing and minimal bulging disc. Prominent facet hypertrophic changes are present on the left at this level. There appears to be a small laminotomy defect on the left. There is some clumping of the nerve roots on the left at this level which may represent postsurgical change and can be seen also with arachnoiditis. There is some minimal enhancement in this region as well which may be related to some mild epidural fibrosis.. 3. No extruded herniated disc or bony canal stenosis. Dictated by: Junior Olivo MD 01/14/2021 10:55 Junior Olivo MD in [place] 01/14/2021 10:55
== END ==
PROVIDERS: PCP Family Medicine; Visit Provider Specialist
DX: G03.1 Chronic meningitis (principal); G89.29 Other chronic pain; M54.16 Radiculopathy, lumbar region; R09.89 Other specified symptoms and signs involving the circulatory and respiratory systems; Z68.35 Body mass index [BMI] 35.0-35.9, adult; Z98.890 Other specified postprocedural states
CPT/HCPCS: 72158; 76376; A9576

== ENCOUNTER 2021-01-18 13:00 | Outpatient (RCR) | payer MEDICARE, SELFPAY ==
--- NOTE | 2021-01-11 13:47 | HMH.PTOPEV ---
PT Outpatient Evaluation Rehab PT Outpatient Evaluation Start: 01/11/21 13:22 Freq: Status: Active Protocol: Document 01/11/21 13:22 DANISH (Rec: 01/11/21 13:47 DANISH [id number]) Electronically Signed By Alex Mendez, PT 01/11/21 13:22 Outpatient Therapy Subjective History Subjective History Pt reports h/o chronic LBP for 20+yrs, x2 lumbar spine sx's in 2009 (cyst excision, bone excision). Pt reports severe bilateral (L>R) sided LBP with B LE radicular s/s. Pt reports exacerbation of s/s w/ any standing activity, 'all I want to do is fish without it killing me'. PMH:B knee OA, fx 'd L grt toe Chief Complaint Pain,Stiff,Paresthesia, Weakness Symptom Type Ache,Sharp,Dull,Numbness, Tingling Symptoms Relieved By Rest/Positioning,Heat Symptoms Aggravated By Standing,Bending/Stooping, Physical Activity,Walking, Lifting Prior Functional Limitations Lifting,Housework,Standing, Walking Current Functional Limitations Lifting,Housework,Standing, Walking Symptom Description Constant but Variable Level of pain today (0-10) 4 Pain scale - at its best (0-10) 4 Pain scale - at its worst (0-10) 10 Lumbopelvic Eval Posture Thoracic Spine Posture Standing Position Flattened Lumbar Spine Posture Standing Position Flattened Assistive device Assistive Devices None / NA Gait Observation General Gait Pattern Observation Antalgic Gait,Wide Based Gait Palapation tenderness bilateral lumbar spinal tenderness Yes: 3/4 paraspinal tenderness Yes: 3/4 buttock tenderness Yes: 3/4 Lumbar/Sacral Palpation Findings Tenderness,Muscle Guarding Accessory Movement T-spine Vertebrae Accessory Movements Central P/A [place] that Elicit Symptoms T10 bilateral T11 bilateral T12 bilateral L-spine Vertebrae Accessory Movements [place] that Elicit Symptoms L2 bilateral L3 bilateral L4 bilateral L5 bilateral S1 bilateral Range of Motion Lumbar Spine Active Flexion Range of 0-30 Motion (degrees) Lumbar Spine Active Extension Range of 0-5 Motion (degrees)
== END 2021-05-16 14:44 | disposition home or self-care (01) ==
LOC: PT 13:00
PROVIDERS: PCP Family Medicine; Visit Provider Specialist
DX: M48.061 Spinal stenosis, lumbar region without neurogenic claudication (principal); M54.5 Low back pain; G89.29 Other chronic pain
CPT/HCPCS: 97010; 97014; 97113; 97163; G0283

== ENCOUNTER 2021-02-09 15:21 | Emergency (ER) | payer MEDICARE, SELFPAY ==
[2021-02-09] VITALS (7 sets, daily range): BP systolic 164–195; BP diastolic 82–109; PULSE 70–81; RESP 14–19; TEMP 36.6–36.7; O2SAT 95–97; BMI 36.3
--- NOTE | 2021-02-09 15:57 | HMH.EDALLER ---
ED Disposition Clinical Impression: Headache Qualifiers: Headache type: tension-type Headache chronicity pattern: acute headache Disposition: Home, Self-Care Condition on Discharge: Good Instructions: DI for Headache Additional Instructions: Return to the ED for any new or worsening symptoms including weakness, difficulty walking, changes in vision, or persistent vomiting. Referrals: Peña Palaciso MD [Primary Care Provider] - Time of Disposition: 19:35 - Critical Care Critical Care Time: No Attestation: On 02/09/21, the high probability of a clinically significant, sudden or life threatening deterioration of the following system(s) required my full and direct attention, intervention and personal management. The time I documented below is in addition to time spent performing reported procedures but includes the following listed in this critical care notation. Medical Decision Making - Medical Records Medical records reviewed: Yes: I reviewed the patient's medical records. - Kurtis Inquiry Pt receiving controlled substance: No Vital Signs: 02/09/21 15:38 02/09/21 16:01 02/09/21 16:15 Temperature 98 F Temperature Source Oral Pulse Rate 76 74 Pulse Rate [Radial] 81 Respiratory Rate 18 17 19 Blood Pressure 170/84 H 164/84 H Blood Pressure [Right Arm] 195/109 H Blood Pressure Mean [Right Arm] 137 Blood Pressure Position [Right Arm] Sitting 02 Sat by Pulse Oximetry 97 95 95 Oxygen Delivery Method Room Air 02/09/21 16:30 02/09/21 17:01 Temperature Temperature Source Pulse Rate 74 70 Pulse Rate [Radial] Respiratory Rate 14 17 Blood Pressure 171/89 H 164/82 H Blood Pressure [Right Arm] Blood Pressure Mean [Right Arm] Blood Pressure Position [Right Arm] 02 Sat by Pulse Oximetry 96 95 Oxygen Delivery Method - Lab Data Lab Results 02/09/21 16:30: WBC 7.2, RBC 4.14 L, Hgb 12.4, Hct 38.5, MCV 93.0, MCH 29.9, MCHC 32.2, RDW 13.9, Plt Count 235, MPV 7.9, Neut % (Auto) 52.5, Lymph % (Auto) 39.1, [place] % (Auto) 5.4, Eos % (Auto) 2.3, Baso % (Auto) 0.6, Neut # (Auto) 3.8, Lymph # (Auto) 2.8, [place] # (Auto) 0.4, Eos # (Auto) 0.2, Baso # (Auto) 0.0 02/09/21 16:30: PT 11.4, INR 0.96, APTT 25.4 02/09/21 16:30: Sodium 144, Potassium 3.6, Chloride 109 H, Carbon Dioxide 29, Anion Gap 9.6, BUN 16, Creatinine 1.00, Estimated Creat Clear 89, Estimated GFR 55 L, Est GFR ( Amer) 67, Glucose 128 H, Calcium 9.4, Total Bilirubin 0.5, AST 46 H, ALT 70, Alkaline Phosphatase 98, Total Protein 7.3, Albumin 4.3, Globulin 3.0, Albumin/Globulin Ratio 1.4 Result diagrams: 02/09/21 16:30 02/09/21 16:30 Orders (Tests/Meds): ED MEDICATIONS Generic Name Dose Route Start Last Admin Trade Name Freq PRN Reason Stop Dose Admin Sodium Chloride 1,000 mls @ 999 mls/hr 02/09/21 17:15 02/09/21 17:09 Sod Chlor 0.9% 1000ml Bag IV 02/09/21 18:15 999 mls/hr .[id number] AZRA Administration Discontinued Medications Generic Name Dose Route Start Last Admin Trade Name Freq PRN Reason Stop Dose Admin Acetaminophen 1,000 mg 02/09/21 17:07 02/09/21 17:09 Acetaminophen 500mg Tab PO 02/09/21 17:08 1,000 mg ONCE ONE Administration Dexamethasone 10 mg 02/09/21 19:03 02/09/21 19:15 Dexamethasone 4mg Tablet PO 02/09/21 19:04 10 mg ONCE ONE Administration Iopamidol 100 ml 02/09/21 17:33 02/09/21 17:38 Iopamidol-370 (76%);100ml Bottle IV 02/09/21 17:34 100 ml ONCE ONE Administration Sodium Chloride 10 ml 02/09/21 17:33 02/09/21 17:38 Sodium Chloride 0.9% 10ml Syr (Rad Only) IV 02/09/21 17:34 10 ml ONCE ONE Administration Sodium Chloride 50 ml 02/09/21 17:33 02/09/21 17:38 0.9 % Sodium Chloride 50 Ml Vial IV 02/09/21 17:34 50 ml ONCE ONE Administration ORDERS Category Date Time Status CT angio head Stat Cat Scan 02/09/21 16:[address] angio neck Stat Cat Scan 02/09/21 16:[address] head/brain wo con Stat Cat Scan 02/09/21
--- NOTE | 2021-02-09 16:19 | CT_ITS ---
Procedure: CT ANGIO NECK CLINICAL HISTORY: sudden severe headache COMPARISON: CT CT HEAD/BRAIN WO CON from 04/25/[address] ANGIO HEAD from 02/09/[address] HEAD/BRAIN WO CON from 02/09/2021 TECHNIQUE: IV Contrast: 100ml Isovue 370 Axial images obtained with sagittal and coronal reformats. All CT scans at the facility use one or more dose reduction, viz: automated exposure control, ma/kV adjustment per patient size (including targeted exams where dose is matched to indication, i.e. head), or iterative reconstruction technique. FINDINGS: Unremarkable appearing aortic arch and great vessels. The right common carotid and internal carotid have an unremarkable appearance with no significant stenosis. There is tortuosity of the right internal carotid artery extending to the retropharyngeal region on right. The left common carotid has an unremarkable appearance. There is a mild amount calcific plaque at the left proximal ICA with approximately 20 percent stenosis. No significant stenotic lesions are evident. Left vertebral artery is dominant. There is an atretic right vertebral artery which ends in PICA. CTA brain: No occlusions aneurysms or AVMs. No evidence of dissection. origin of the right posterior cerebral artery. There is mucosal thickening of left maxillary sinus with postsurgical changes of the paranasal sinuses. No enhancing brain lesions. There is a small focus of gas along the left clinoid region etiology indeterminate. There are degenerative changes of the cervical spine with multilevel cervical spondylosis with severe narrowing of the right C3-C4 and C4-C5 neural foramen. IMPRESSION: 1. No evidence of occlusion dissection aneurysm or significant stenosis. 2. Degenerative changes of the cervical spine with severe right foraminal narrowing at C3-C4 and C4-C5. 3. Small focus of gas noted in the left clinoid region etiology indeterminate. Differential diagnosis would include iatrogenic from venous access, posttraumatic, or infection. Dictated by: Junior Olivo MD 02/10/2021 10:25 Junior Olivo MD in [facility] 02/10/2021 10:25
--- NOTE | 2021-02-09 16:19 | CT_ITS ---
PROCEDURE: CT HEAD/BRAIN WO CON CLINICAL INDICATION: sudden severe headache COMPARISON: CT CT HEAD/BRAIN WO CON from 04/25/2020 TECHNIQUE: Axial images obtained. All CT scans at the facility use one or more dose reduction, viz: automated exposure control, ma/kV adjustment per patient size (including targeted exams where dose is matched to indication, i.e. head), or iterative reconstruction technique. FINDINGS: No midline shift, mass effect, intracranial hemorrhage, hydrocephalus, or extra-axial fluid collection is evident. The calvarium has an unremarkable appearance. No mastoid effusion. Postsurgical changes of the paranasal sinuses. There is moderate mucosal thickening of the left maxillary sinus. Small air-fluid levels present in the frontal sinus centrally. IMPRESSION: 1. No acute intracranial findings. 2. Postsurgical changes of the paranasal sinuses with mucosal thickening of the left maxillary sinus and a small air-fluid level in the central aspect of the frontal sinus Dictated by: Junior Olivo MD 02/10/2021 09:48 Junior Olivo MD in [facility] 02/10/2021 09:48
[2021-02-09 16:37] LABS: Basophils % 0.6 % (0.1-2.0); Eosinophils # 0.2 K/mm3 (0.0-0.4); Eosinophils % 2.3 % (0.1-12.0); Hematocrit 38.5 % (37.0-47.0); Hemoglobin 12.4 g/dL (12.2-16.2); Lymphocytes # 2.8 K/mm3 (0.7-4.5); Lymphocytes % 39.1 % (10-50); Mean Corpuscular HGB Conc 32.2 g/dL (31.8-35.4); Mean Corpuscular Hemoglobin 29.9 pg (27.0-31.2); Mean Platelet Volume 7.9 fl (7.4-10.4); Monocytes # 0.4 K/mm3 (0.1-1.0); Monocytes % 5.4 % (1.7-9.3); Neutrophils # 3.8 K/mm3 (1.8-7.8); Neutrophils % 52.5 % (37.0-80.0); Platelet Count 235 K/mm3 (142-424); Red Blood Count 4.14 M/mm3 (4.20-5.40); Red Cell Distribution Width 13.9 % (11.5-17.5); White Blood Count 7.2 K/mm3 (4.8-10.8)
[2021-02-09 16:43] LABS: Chloride 109 mmol/L (98-107); Sodium 144 mmol/L (136-145)
[2021-02-09 16:44] LABS: Potassium 3.6 mmoL/L (3.5-5.1)
[2021-02-09 16:46] LABS: Alanine Aminotransferase 70 U/L (12-78); Albumin Level 4.3 g/dl (3.5-5.0); Albumin/Globulin Ratio 1.4 (1.1-1.8); Alkaline Phosphatase 98 U/L (38-126); Anion Gap 9.6 mEq/L (5-15); Aspartate Amino Transferase 46 U/L (14-36); Bilirubin,Total 0.5 mg/dl (0.2-1.3); Blood Urea Nitrogen 16 mg/dl (7-17); Carbon Dioxide 29 mmol/L (22.0-30.0); Creatinine Clearance Estimated 89 mL/min (50-200); Estimated Glomerular Filt Rate 55 ml/min (>60); GFR (African American) 67 ML/MIN (>60); Total Protein,Serum 7.3 g/dl (6.3-8.2)
[2021-02-09 16:47] LABS: Calcium 9.4 mg/dl (8.4-10.2); Glucose 128 mg/dl (74-100)
[2021-02-09 16:50] LABS: Activated Partial Thrombo Time 25.4 seconds (22.8-30.6); INR 0.96 (0.9-1.1); Prothrombin Time 11.4 seconds (10.1-12.5)
--- NOTE | 2021-02-09 17:23 | PC.NURSE ---
pt going up for ct
== END 2021-02-09 19:30 | disposition home or self-care (01) ==
PROVIDERS: Emergency Provider Student in an Organized Health Care Education/Training Program; PCP Family Medicine
DX: S00.06XA Insect bite (nonvenomous) of scalp, initial encounter (principal); F41.8 Other specified anxiety disorders; E78.5 Hyperlipidemia, unspecified; I10 Essential (primary) hypertension; E11.9 Type 2 diabetes mellitus without complications; J45.909 Unspecified asthma, uncomplicated; M81.0 Age-related osteoporosis without current pathological fracture; Z88.1 Allergy status to other antibiotic agents; D64.9 Anemia, unspecified; Z51.81 Encounter for therapeutic drug level monitoring
CPT/HCPCS: 70450; 70496; 70498; 80053; 85025; 85610; 85730; 99282; Q9967

== ENCOUNTER → 2021-04-20 09:59 | Outpatient (CLI) | payer MEDICARE, SELFPAY ==
--- NOTE | 2021-04-20 10:24 | CA_ITS ---
APPROVED REPORT Welder Manufacture: Irma Torrez RVT Laterality: Bilateral Study Quality: Good Indications: DIZZINESS,AYON Risk Factors Hypertension: Doppler Spectral Velocity Analysis ECA (R) 89.50/12.10 cm/s ECA (L) 64.20/13.90 cm/s dICA (R) 68.00/26.10 cm/s dICA (L) 94.10/35.40 cm/s Andrea (R) 66.20/19.60 cm/s Andrea (L) 86.70/32.60 cm/s pICA (R) 79.90/22.60 cm/s pICA (L) 79.10/24.60 cm/s dCCA (R) 62.00/17.10 cm/s dCCA (L) 66.30/11.80 cm/s pCCA (R) 88.80/12.80 cm/s pCCA (L) 86.60/18.20 cm/s Vert (R) 34.50/8.40 cm/s Vert (L) 41.70/9.60 cm/s ICA/CCA 1.29 ICA/CCA 1.42 Findings Study suggets less than 20% stenosis of the right internal cartoid artery. Study suggests 20-49% stenosis (lower end of scale) of the left internal cartoid artery. Small amount of hyperechoic plaque seen left proximal ICA. Antegrade flow seen bilateral vertebral arteries. Conclusion Study suggets less than 20% stenosis of the right internal cartoid artery. Study suggests 20-49% stenosis (lower end of scale) of the left internal cartoid artery. Small amount of hyperechoic plaque seen left proximal ICA. Antegrade flow seen bilateral vertebral arteries. Electronically signed by : Julio Bender MD 04/20/2021 10:55:41
== END ==
PROVIDERS: PCP Family Medicine; Visit Provider Nurse Practitioner Family
DX: R42 Dizziness and giddiness (principal); R51.9 Headache, unspecified
CPT/HCPCS: 93880

== ENCOUNTER → 2021-05-02 10:26 | Outpatient (CLI) | payer MEDICARE, SELFPAY ==
--- NOTE | 2021-05-02 10:29 | MM_ITS ---
PROCEDURE INFORMATION: Exam: MG Screening 3D Mammography Exam date and time: 05/02/2021 10:29 AM Age: 66 years old Clinical indication: Encounter for screening mammogram for malignant neoplasm of breast TECHNIQUE: Imaging protocol: Screening tomosynthesis and 2D mammography including computer-aided detection (CAD) when performed. COMPARISON: 1. MG MM DIG SCREENING MAMM BI W/CAD 03/16/2020 10:38 AM 2. MG SCBI MM Dig screening mamm BI w/CAD 11/27/2018 8:38 AM FINDINGS: MAMMOGRAPHY: Breast composition: The breast tissue is composed of scattered areas of fibroglandular density. Mass: None. Architectural distortion: None. Calcifications: No suspicious calcifications. Asymmetric density: None. Skin thickening: None. Axillary adenopathy: None. IMPRESSION: No mammographic evidence of malignancy. Annual screening is recommended unless otherwise clinically indicated. ASSESSMENT: BI-RADS Category 1: Negative
== END ==
PROVIDERS: PCP Family Medicine; Visit Provider Family Medicine
DX: Z12.31 Encounter for screening mammogram for malignant neoplasm of breast (principal)
CPT/HCPCS: 77063; 77067

== ENCOUNTER → 2022-01-21 10:16 | Outpatient (CLI) | payer MEDICARE, SELFPAY | PROVIDERS: Visit Provider Internal Medicine | DX: Z01.812 Encounter for preprocedural laboratory examination (principal); Z11.52 Encounter for screening for COVID-19; Z12.11 Encounter for screening for malignant neoplasm of colon | CPT/HCPCS: C9803; U0003; U0005 ==

== ENCOUNTER 2022-01-23 08:19 | Day surgery (SDC) | payer MEDICARE, SELFPAY ==
[2022-01-16 15:02] VITALS: BMI 36.3
[2022-01-23 08:34] VITALS: BP 161/99; PULSE 68; RESP 16; TEMP 36.6; O2SAT 94
--- NOTE | 2022-01-23 09:00 | P.PN_ITS ---
[facility] Anesthesia Checklist - Patient Identification Patient Identification: Arm Band - Structural Data Admitted From: Home Planned Operative Procedure/s: Colonoscopy Consent for Planned Operative Procedure(s) Verified: Yes - NPO Status Verified Time NPO: 00:00 - Additional verifications Anesthesia Reactions: No Hx Blood Transfusions: No Blood Transfusion Reaction: No - Airway Assessment C-Spine Mobility Assessed: Yes TMJ Mobility Assessed: Yes - Neurological Assessment Hx Seizures: No Numbness or tingling in extremities: No - Anesthesia Plan Anesthesia Risk discussed: Yes Anesthesia Plan: Verified ASA Class: II Anesthesia Type: MAC [facility] History I have reviewed the patient's past medical history: Yes Medical History: Reports:: Anxiety, Depression, Hyperlipidemia, Hypertension, Osteoporosis Denies:: Cancer, Diabetes Mellitus Type 1, Diabetes Mellitus Type 2, Internal Pacemaker, Lung Disease, MRSA, Seizures *Have you ever received a pneumonia vaccine?: Yes *Have you received a flu vaccine this season?: Yes Other Medical History: Reports: Anemia, Arthritis, Osteoporosis, Sinus Problems, Other (chronic meningitis). Denies: Blood Transfusion Reaction Anesthesia experience/problems:: None Laterality Cases: Bilateral: Carpal Tunnel Release Other Surgeries: Yes: Cholecystectomy, Colonoscopy, Colon Resection, EGD, Hysterectomy-Total, Hysterectomy-Partial, Sinus Surgery (+DEVIATED SEPTUM REPAIR), Tubal Ligation, Other (excision lumbar synovial cyst). No: Pacemaker Amputation: No Fractures: No - *Social History Last grade of school completed: High school graduate Smoking Status: Never smoker Alcohol Intake: current Alcohol Intake Frequency:: a few times a month Substance Use Type: denies use *Occupational Status:: retired Housing: house Household Members: spouse, family *Travel in the last 8 weeks: None - Psychiatric History Pschychiatric History:: Reports:: Anxiety, Depression Family Hx:: No significant family history
[2022-01-23 09:53] VITALS: O2SAT 98
--- NOTE | 2022-01-23 10:17 | HMH.SCOPE ---
- Procedure: Date: 01/23/22 Patient Date of :: 1955 Procedure Performed:: Colonoscopy Indications:: The patient is a 66 year old who presents for surveillance colonoscopy for a history of colon polyps. She reports on her last colonscopy 5 years ago no colon polyps were found. Performing Provider:: Alejandro Cardoso MD Referring Provider:: Chris Palacios MD Sedation:: See RN notes Procedure:: After placing the patient in the left lateral decubitus position, the colonoscopy was gently inserted into the rectum and under direct visualization advanced to the cecum which was identified by transillumination in the right lower quadrant, identification of the ileocecal valve, appendiceal orifice, and cecal strap. Color, texture, mucosa, and anatomy of the colon were carefully examined with the scope. During the end of the procedure the patient developed coughing episodes which made the colonoscopy technically difficult during this time within the distal colon. Findings:: Anal canal: normal Rectum: Internal hermorrhoids Sigmoid colon: Appears to be resected. Surgical changes identified in distal colon. Fair bowel preparation Descending colon: Diverticulosis. Fair bowel preparation Splenic flexure: normal Transverse colon: normal without polyps or inflammatory changes Hepatic flexure: normal Ascending colon: normal without polyps or inflammatory changes Cecum: normal. There was a prominent appearance to the ICV, this may be lipomatous hypertrophy of the ICV. Biopsies were obtained Terminal ileum: normal Recommendations:: Await pathology results Repeat colonoscopy in 5 years Complications:: None Estimated blood obtained (mL): 0
[2022-01-23 10:18] VITALS: BP 154/78; PULSE 79; RESP 18; TEMP 37; O2SAT 91
[2022-01-23 10:28] VITALS: BP 130/85; PULSE 78; RESP 18; O2SAT 95
[2022-01-23 10:38] VITALS: BP 152/93; PULSE 60; RESP 18; O2SAT 97
[2022-01-23 11:00] VITALS: BP 164/89; PULSE 60; RESP 18; O2SAT 97
== END 2022-01-23 11:02 | disposition home or self-care (01) ==
LOC: OUTP 08:20
PROVIDERS: PCP Family Medicine; Visit Provider Internal Medicine
PROC: 0DJD8ZZ Inspection of Lower Intestinal Tract, Via Natural or Artificial Opening Endoscopic (ICD-10-PCS; CPT 45378; principal; 2022-01-23 09:30)
DX: Z12.11 Encounter for screening for malignant neoplasm of colon (principal); Z86.010 Personal history of colon polyps; K64.9 Unspecified hemorrhoids; K63.9 Disease of intestine, unspecified; E78.5 Hyperlipidemia, unspecified; G47.33 Obstructive sleep apnea (adult) (pediatric); I10 Essential (primary) hypertension; Z88.8 Allergy status to other drugs, medicaments and biological substances; Z79.899 Other long term (current) drug therapy
CPT/HCPCS: 45380; 88305; J2704

== ENCOUNTER → 2022-02-12 08:38 | Outpatient (CLI) | payer MEDICARE, SELFPAY ==
--- NOTE | 2022-02-12 08:55 | XR_ITS ---
FINAL REPORT TECHNIQUE: Bone densitometry calculations of the lumbar spine and both hips were obtained. CLINICAL HISTORY: post menopausal FINDINGS: DEXA BONE DENSITY AXIAL SKELETON Using L1-4, the bone mineral density of the spine is 1.236 g/cm2, corresponding to T-score of 1.7. Using the left hip, the bone mineral density of the femoral neck is 1.022 g/cm2, corresponding to a T-score of 0.7. Using the right hip, the bone mineral density of the femoral neck is 0.952 g/cm2, corresponding to a T-score of 0.9. NOTE: T-score: Standard deviation compared with peak bone mass of young adult mean. *Following the recommendations of the International Society of Bone densitometry, classification of hip BMD is based on the lower of two T-scores; total hip or femoral neck. IMPRESSION: Normal bone mineral density of the lumbar spine and hips. Reviewed, Interpreted and Dictated by Michael Mejia MD Transcribed by Marti Khan Authenticated by Michael Mejia MD on 02/12/2022 12:08:12 PM [facility]
[2022-02-12 09:54] LABS: Chloride 105 mmol/L (98-107); Potassium 4.2 mmoL/L (3.5-5.1); Sodium 141 mmol/L (136-145)
[2022-02-12 09:56] LABS: Blood Urea Nitrogen 17 mg/dl (7-17); Estimated Glomerular Filt Rate 62 ml/min (>60); GFR (African American) 76 ML/MIN (>60)
[2022-02-12 09:57] LABS: Alanine Aminotransferase 36 U/L (12-78); Albumin/Globulin Ratio 1.5 (1.1-1.8); Alkaline Phosphatase 96 U/L (38-126); Anion Gap 7.2 mEq/L (5-15); Aspartate Amino Transferase 30 U/L (14-36); Bilirubin,Total 0.6 mg/dl (0.2-1.3); Calcium 8.9 mg/dl (8.4-10.2); Carbon Dioxide 33 mmol/L (22.0-30.0); Cholesterol 274 mg/dl (140-200); Globulin 2.7 g/dL (1.3-3.2); Glucose 138 mg/dl (74-100); Total Protein,Serum 6.7 g/dl (6.3-8.2)
[2022-02-12 09:58] LABS: Chol/HDL Ratio 8.1 (1-3.5); HDL Cholesterol 34 mg/dl (40-60)
[2022-02-12 10:15] LABS: Hemoglobin A1C 6.4 % (4.0-6.0); Triglycerides 438 mg/dl (30-150)
== END ==
PROVIDERS: PCP Family Medicine; Visit Provider Family Medicine
DX: Z00.00 Encounter for general adult medical examination without abnormal findings (principal); I10 Essential (primary) hypertension; E78.5 Hyperlipidemia, unspecified; R73.9 Hyperglycemia, unspecified; Z78.0 Asymptomatic menopausal state
CPT/HCPCS: 36415; 77080; 80053; 80061; 83036

== ENCOUNTER → 2022-05-13 13:02 | Outpatient (CLI) | payer MEDICARE, SELFPAY | PROVIDERS: PCP Family Medicine; Visit Provider Internal Medicine | DX: Z01.812 Encounter for preprocedural laboratory examination (principal); Z20.822 Contact with and (suspected) exposure to COVID-19; Z12.11 Encounter for screening for malignant neoplasm of colon | CPT/HCPCS: C9803; U0003; U0005 ==

== ENCOUNTER 2022-05-15 08:11 | Day surgery (SDC) | payer MEDICARE, SELFPAY ==
[2022-05-15] VITALS (7 sets, daily range): BP systolic 96–156; BP diastolic 51–80; PULSE 76–90; RESP 18; TEMP 36.5–36.6; O2SAT 92–98; BMI 36.4
--- NOTE | 2022-05-15 09:04 | HMH.ANESCL ---
[facility] Anesthesia Checklist - Patient Identification Patient Identification: Arm Band, Verbal (Name & ) - Structural Data Admitted From: Home Planned Operative Procedure/s: Colonoscopy Consent for Planned Operative Procedure(s) Verified: Yes Verified Documents: Surgical Consent - NPO Status Verified Time NPO: 04:00 - Additional verifications Anesthesia Reactions: No Hx Blood Transfusions: No Blood Transfusion Reaction: No - Airway Assessment C-Spine Mobility Assessed: Yes TMJ Mobility Assessed: Yes Dentition: Good Dentition - Neurological Assessment Level of Consciousness: Awake, Alert, Appropriate - Anesthesia Plan Anesthesia Risk discussed: Yes ASA Class: II Anesthesia Type: MAC [facility] History I have reviewed the patient's past medical history: Yes Medical History: Reports:: Anxiety, Asthma, Depression, Hyperlipidemia, Hypertension, Osteoporosis Denies:: Cancer, Diabetes Mellitus Type 1, Diabetes Mellitus Type 2, Internal Pacemaker, Lung Disease, MRSA, Seizures *Have you ever received a pneumonia vaccine?: Yes *Have you received a flu vaccine this season?: Yes Other Medical History: Reports: Anemia, Arthritis, Osteoporosis, Sinus Problems, Other (chronic meningitis). Denies: Blood Transfusion Reaction Anesthesia experience/problems:: none Laterality Cases: Bilateral: Carpal Tunnel Release Other Surgeries: Yes: Cholecystectomy, Colonoscopy, Colon Resection, EGD, Hysterectomy-Total, Hysterectomy-Partial, Sinus Surgery (+DEVIATED SEPTUM REPAIR), Tubal Ligation, Other (excision lumbar synovial cyst). No: Pacemaker Amputation: No Fractures: No - *Social History Last grade of school completed: Some college Smoking Status: Never smoker Alcohol Intake: never Alcohol Intake Frequency:: a few times a month Substance Use Type: denies use *Occupational Status:: retired Housing: house Household Members: spouse *Travel in the last 8 weeks: None - Psychiatric History Pschychiatric History:: Reports:: Anxiety, Depression Family Hx:: Heart Attack
--- NOTE | 2022-05-15 09:23 | HMH.SCOPE ---
- Procedure: Date: 05/15/22 Patient Date of :: 1955 Procedure Performed:: Colonoscopy Indications:: The patient had a colonoscopy in January. The ICV appeared prominent and ICV biopsies showed adenomatous tissue. Performing Provider:: Alejandro Cardoso MD Referring Provider:: Chris Palacios MD Sedation:: See RN records Procedure:: After placing the patient in the left lateral decubitus position, the colonoscopy was gently inserted into the rectum and under direct visualization advanced to the cecum which was identified by transillumination in the right lower quadrant, identification of the ileocecal valve, appendiceal orifice, and cecal strap. Color, texture, mucosa, and anatomy of the colon were carefully examined with the scope. Findings:: Anal canal: normal Rectum: Internal hemorrhoids Sigmoid colon: Surgical changes, diverticulosis Descending colon: Diverticulosis Splenic flexure: normal Transverse colon: normal without polyps or inflammatory changes Hepatic flexure: Diverticulosis Ascending colon: Diverticulosis Cecum: Somewhat prominent appearance to ICV. Biopsies obtained. Flat polyp 4 mm in size. Removed with cold snare polypectomy Terminal ileum: not visualized Recommendations:: Await pathology results Complications:: None Estimated blood obtained (mL): 0
== END 2022-05-15 10:03 | disposition home or self-care (01) ==
LOC: OUTP 08:12
PROVIDERS: PCP Family Medicine; Visit Provider Internal Medicine
PROC: 0DJD8ZZ Inspection of Lower Intestinal Tract, Via Natural or Artificial Opening Endoscopic (ICD-10-PCS; CPT 45378; principal; 2022-05-15 09:30)
DX: K63.5 Polyp of colon (principal); Z86.010 Personal history of colon polyps; J45.909 Unspecified asthma, uncomplicated; M81.0 Age-related osteoporosis without current pathological fracture; F41.9 Anxiety disorder, unspecified; F32.A Depression, unspecified; I10 Essential (primary) hypertension; E78.5 Hyperlipidemia, unspecified
CPT/HCPCS: 45385; 88305

== ENCOUNTER → 2022-07-30 10:17 | Outpatient (CLI) | payer MEDICARE, SELFPAY ==
--- NOTE | 2022-07-30 10:20 | MM_ITS ---
PROCEDURE INFORMATION: Exam: MG Bilateral Screening 3D Mammography Exam date and time: 07/30/2022 10:16 AM Age: 67 years old Clinical indication: Screening examination. A paternal aunt had breast cancer. TECHNIQUE: Imaging protocol: Bilateral Screening tomosynthesis and 2D mammography including computer-aided detection (CAD) when performed. COMPARISON: 1. MG MM DIG SCREENING MAMM BI W/CAD 05/02/2021 10:34 AM 2. MG MM DIG SCREENING MAMM BI W/CAD 03/16/2020 10:38 AM 3. MG SCBI MM Dig screening mamm BI w/CAD 11/27/2018 8:38 AM 4. MG DMSB DIG MAMM-SCREEN ABBY W/CAD 10/24/2017 9:53 AM FINDINGS: MAMMOGRAPHY: Breast composition: There are scattered areas of fibroglandular density. Mass: None. Architectural distortion: None. Calcifications: No suspicious calcifications. Asymmetric density: None. Skin thickening: None. Axillary adenopathy: None. IMPRESSION: No mammographic evidence of malignancy. Annual screening is recommended unless otherwise clinically indicated. ASSESSMENT: BI-RADS Category 1: Negative
== END ==
PROVIDERS: PCP Family Medicine; Visit Provider Family Medicine
DX: Z12.31 Encounter for screening mammogram for malignant neoplasm of breast (principal)
CPT/HCPCS: 77063; 77067

== ENCOUNTER → 2022-08-13 09:43 | Outpatient (POV) | payer MEDICARE, SELFPAY | PROVIDERS: Visit Provider Dermatology | DX: Z00.00 Encounter for general adult medical examination without abnormal findings (principal) ==

== ENCOUNTER → 2023-09-10 09:40 | Outpatient (CLI) | payer MEDICARE, SELFPAY ==
--- NOTE | 2023-09-10 09:43 | MM_ITS ---
PROCEDURE INFORMATION: Exam: MG Bilateral Screening 3D Mammography Exam date and time: 09/10/2023 9:38 AM Age: 68 years old Clinical indication: Screening examination TECHNIQUE: Imaging protocol: Bilateral Screening tomosynthesis and 2D mammography including computer-aided detection (CAD) when performed. COMPARISON: 1. MG MM DIG SCREENING MAMM BI W/CAD 07/30/2022 10:16 AM 2. MG MM DIG SCREENING MAMM BI W/CAD 05/02/2021 10:34 AM FINDINGS: MAMMOGRAPHY: Breast composition: There are scattered areas of fibroglandular density. Mass: None. Architectural distortion: None. Calcifications: No suspicious calcifications. Asymmetric density: None. Skin thickening: None. Axillary adenopathy: None. IMPRESSION: No mammographic evidence of malignancy. Annual screening is recommended unless otherwise clinically indicated. ASSESSMENT: BI-RADS Category 1: Negative
== END ==
PROVIDERS: PCP Family Medicine; Visit Provider Family Medicine
DX: Z12.31 Encounter for screening mammogram for malignant neoplasm of breast (principal)
CPT/HCPCS: 77063; 77067

== ENCOUNTER 2024-01-02 07:31 | Outpatient (CLI) | payer MEDICARE, SELFPAY ==
--- NOTE | 2024-01-02 07:38 | MR_ITS ---
FINAL REPORT TECHNIQUE: Multiplanar and multisequence imaging the right knee was obtained without contrast. CLINICAL HISTORY: .Rt knee pain COMPARISON: None FINDINGS: Bones: There is no acute fracture or marrow edema. The joint space is preserved. There is chondromalacia of the patella, most pronounced medially. There is also medial compartment chondromalacia present.. Menisci: No meniscal tear is present. Ligaments: No cruciate or collateral ligament tear is present. Tendons/Muscles: The quadriceps and patellar tendons are within normal limits. The biceps femoris tendon and iliotibial tract are intact. The popliteus tendon is normal. Other: A moderate joint effusion is present.. There is a cystic lesion posterior to the posterior cruciate ligament, likely a synovial or ganglion cyst.. IMPRESSION: Chondromalacia of the patella, most pronounced medially. There is also medial compartment chondromalacia. Moderate joint effusion with a cyst posterior to the PCL, likely a synovial or ganglion cyst. Reviewed, Interpreted and Dictated by Dhara Boateng MD Transcribed by Sana Zimmerman Authenticated and [facility]
== END 2024-01-02 23:59 ==
LOC: RAD 07:32
PROVIDERS: PCP Family Medicine; Visit Provider Orthopaedic Surgery
DX: M25.561 Pain in right knee (principal)
CPT/HCPCS: 73721

== ENCOUNTER 2024-02-18 14:31 | Emergency (ER) | payer MEDICARE, SELFPAY ==
[2024-02-18 14:45] VITALS: BP 151/91; PULSE 92; RESP 19; TEMP 36.7; O2SAT 96; BMI 35.3
--- NOTE | 2024-02-18 14:54 | EXP.UTC ---
Discharge Plan Disposition Patient Disposition: Home, Self-Care Condition: Good Prescriptions Prescriptions: New ondansetron 4 mg tablet,disintegrating 4 mg PO Q8H PRN (Reason: nausea and vomiting) Qty: 12 0RF No Action duloxetine 30 MG capsule,delayed release(DR/EC) 30 mg PO BID gabapentin 300 MG capsule 600 mg PO HS cetirizine [Zyrtec] 10 mg Tablet 10 mg PO DAILY metoprolol succinate 50 mg tablet extended release 24 hr 50 mg PO DAILY Patient Comments: TAKE ONE TABLET BY MOUTH EVERY DAY omeprazole [Prilosec] 10 mg Capsule,Delayed Release(Dr/Ec) 10 mg PO DAILY hydrochlorothiazide 25 mg tablet 25 mg PO DAILY Patient Comments: TAKE ONE TABLET BY MOUTH EVERY DAY losartan 100 mg tablet 100 mg PO DAILY Patient Comments: TAKE ONE TABLET BY MOUTH EVERY DAY AT BEDTIME rosuvastatin 20 mg tablet 20 mg PO HS Patient Comments: TAKE ONE TABLET BY MOUTH EVERY DAY Ozempic 2 mg/dose (8 mg/3 mL) pen injector 2 mg SQ WEEKLY Patient Comments: INJECT 2 MG SUBCUTANEOUSLY ONCE A WEEK Referrals Follow up/Referrals: Peña Palacios MD [Primary Care Provider] - See instructions Activity Restrictions/Add. Instructions Additional Instructions/Restrictions: Drink extra fluids with and between meals. If you have difficulty drinking, try very small amounts of water or suck on ice chips. ? Avoid fruit juices, as these do not replace minerals and can actually increase diarrhea. ? Children and adults can use sports drinks to replenish electrolytes. Younger children and infants should use products formulated for children, like oral rehydration solutions. ? Eat food in small amounts and let your stomach recover. ? Get lots of rest. You may feel tired or weak. ? No greasy or fried foods for the next 24-48 hours BRAT diet Bananas Rice Apples and [place] ? Make sure to drink plenty of liquids ? Return if needed ? Straight to ER if any life threatening symptoms ? Zofran as prescribed ? You was given an outpatient order for diarrhea panel, please collect specimen and bring back to outpatient lab then call back to the [facility] or follow up with family doctor for results ? Follow up with family doctor in the next 48-72 hours if no improvement or any worsening of symptoms Clinical Impressions Clinical Impression: Nausea vomiting and diarrhea Instructions Patient Instructions: Nausea and Vomiting-Adult, Diarrhea, Ondansetron Discharge ED Provider: Sherly Cleary [facility] [place] General Stated complaint: vomiting/diarrea x 4 days Mode of Arrival: Ambulatory Source of Information: Patient Limitations: No Limitations Time Seen by Provider: 02/18/24 14:54 Description of Symptoms (Recalled from Triage Doc. by RN): PATIENT C/O VOMITING AND DIARRHEA X 3 DAYS HEENT Symptoms (Recalled from RN notes): No Resp Symptoms (Recalled from RN notes): No Skin Symptoms (Recalled from RN notes): No MS Symptoms (Recalled from RN notes): No Functional Status (Recalled from RN notes): WNL History of Present Illness Provider Complaint: Patient states that she has been out of town on a fishing trip and on Friday she started with vomiting and diarrhea, states that she has been nauseous but has been drinking fluids States that she didnt have anything for the nausea but did take an immodium yesterday and today and it did help but she was worried if she didnt get something for the nausea she would get dehydrated Related Data Home Medications Medication Instructions Recorded Confirmed duloxetine 30 mg capsule,delayed 30 mg PO BID Anxiety 03/17/18 02/18/24 release gabapentin 300 mg capsule 600 mg PO HS Pain 01/16/22 02/18/24 cetirizine 10 mg tablet (Zyrtec) 10 mg PO DAILY 02/18/24 02/18/24 hydrochlorothiazide 25 mg tablet 25 mg PO DAILY 02/18/24 02/18/24 losartan 100 mg tablet 100 mg PO DAILY 02/18/24 02/18/24 metoprolol succinate 50 mg 50 mg PO DAILY 02/18/24 02/18/24 tablet,extended release 24 hr omeprazole 10 mg capsule,delayed 10 mg PO DAILY 02/18/24 02/18/24 release rosuvastatin 20 mg tablet 20 mg PO HS 02/18/24 02/18/24 semaglutide 2 mg/dose (8 mg/3 mL) 2 mg SQ WEEKLY 02/18/24 02/18/24 subcutaneous pen injector (Ozempic) Previous Rx's Medication Instructions Recorded ondansetron 4 mg disintegrating 4 mg PO Q8H PRN nausea and 02/18/24 tablet vomiting #12 tabs Allergies Allergy/AdvReac Type Severity Reaction Status Date / Time ceftriaxone [From Rocephin] Allergy Intermediate Anaphylaxis Verified 01/23/22 08:32 suture Allergy Mild Redness of Verified 01/23/22 08:32 Skin Worker's Comp Is this a Worker's Comp case?: No PFSH [facility] Disclaimer: The information contained in this section may have been updated after the patient was seen, as this information can be updated by other users. Medical History (Updated 02/18/24 @ 16:10 by Sherly Cleary APRN) Depression Diabetes mellitus, type 2 Asthma Hyperlipidemia Hypertension Surgical History (Updated 02/18/24 @ 14:52 by Юлия Paul RN) History of tubal ligation History of hysterectomy History of cholecystectomy Social History Smoking Status: Never smoker alcohol intake: never substance use type: denies use current occupational status: retired Travel in the last 8 weeks: None household members: spouse housing: house current occupation: [employer] current occupational exposures/hazards: No caffeine: Yes ROS Obtained: Yes All systems reviewed & no additional complaints except as documented and Yes Systems reviewed as appropriate & no additional complaints except as documented Constitutional Constitutional: Reports system reviewed and no additional complaints, except as documented, Reports as per HPI, Denies body ache, Denies chills and Denies fever(s) ENT Ears, Nose, Mouth, and Throat: Reports system reviewed and no additional complaints, except as documented and Reports as per HPI Cardiovascular Cardiovascular: Reports system reviewed and no additional complaints, except as documented, Reports as per HPI and Denies palpitations Respiratory Respiratory: Reports system reviewed and no additional complaints, except as documented and Reports as per HPI Gastrointestinal Gastrointestingal: Reports system reviewed and no additional complaints, except as documented, as per HPI, cramping, diarrhea, nausea and vomiting Musculoskeletal Musculoskeletal: Reports system reviewed and no additional complaints, except as documented, Reports as per HPI, Denies back pain, Denies muscle cramps and Denies myalgias Integumentary/Breasts Skin/Breast: Reports system reviewed and no additional complaints, except as documented and Reports as per HPI Endocrine Endocrine: Reports system reviewed and no additional complaints, except as documented, Reports as per HPI, Denies cold intolerance, Denies heat intolerance, Denies palpitations, Denies polydipsia and Denies polyuria Physical Exam General General appearance: alert and in no apparent distress ENT ENT exam: Present mucous membranes moist Respiratory Respiratory exam: Present normal lung sounds bilaterally; Absent respiratory distress or wheezes Cardiovascular Cardiovascular exam: Present regular rate, normal rhythm and normal heart sounds Neurological Exam Neurological exam: Present alert, oriented X3 and normal gait Medical Decision Making Kurtis Inquiry Pt receiving controlled substance: No Kurtis was queried for this patient: No Vital Signs: 02/18/24 14:45 Temperature 98.0 F Temperature Source Oral Pulse Rate [Left Brachial] 92 H Respiratory Rate 19 Blood Pressure [Left Arm] 151/91 H Blood Pressure Mean [Left Arm] 111 Blood Pressure Source [Left Arm] Automatic Cuff Blood Pressure Position [Left Arm] Sitting 02 Sat by Pulse Oximetry 94 L Oxygen Delivery Method Room Air Medical Decision Narrative: Discussed transfer to the ED for further work up and lab work and patient declined states that she wants to try Zofran and drinking fluids at home but will return if her vomiting or diarrhea gets worse, discussed IV fluids and labs in the UTC and she declined again agreed to try zofran and po challenge in the UTC After zofran patient drinking sugar free gatoraid with no vomiting and states that she is feeling much better nausea gone playing on her phone again discussed IV fluids and/or labs in UTC or Transfer to the ED for lab work up and she declined states that she wants to go home and drink fluids will collect diarrhea sample and bring back to have tested and will go to the ED or PCP if no improvement patient given strict return precautions
[2024-02-18] MEDS: ONDANSETRON 4MG ODT 4 MG SL (15:17)
[2024-02-18 16:10] VITALS: BP 151/91; PULSE 92; RESP 19; TEMP 36.7; O2SAT 96
== END 2024-02-18 16:14 | disposition home or self-care (01) ==
PROVIDERS: Emergency Provider Nurse Practitioner; PCP Family Medicine
DX: R11.2 Nausea with vomiting, unspecified (principal); R19.7 Diarrhea, unspecified; E78.5 Hyperlipidemia, unspecified; I10 Essential (primary) hypertension; E11.9 Type 2 diabetes mellitus without complications; Z79.85 Long-term (current) use of injectable non-insulin antidiabetic drugs
CPT/HCPCS: 99204; 99212; G0463

== ENCOUNTER 2024-10-28 11:44 | Emergency (ER) | payer MEDICARE, SELFPAY ==
[2024-10-28 13:25] VITALS: BP 143/88; PULSE 77; RESP 18; TEMP 36.8; O2SAT 98; BMI 33.9
--- NOTE | 2024-10-28 13:36 | ED_ITS ---
Discharge Plan Disposition Patient Disposition: Home, Self-Care Condition: Good Prescriptions Prescriptions: No Action duloxetine 30 MG capsule,delayed release(DR/EC) 30 mg PO BID gabapentin 300 MG capsule 600 mg PO HS cetirizine [Zyrtec] 10 mg Tablet 10 mg PO DAILY metoprolol succinate 50 mg tablet extended release 24 hr 50 mg PO DAILY Patient Comments: TAKE ONE TABLET BY MOUTH EVERY DAY omeprazole [Prilosec] 10 mg Capsule,Delayed Release(Dr/Ec) 10 mg PO DAILY hydrochlorothiazide 25 mg tablet 25 mg PO DAILY Patient Comments: TAKE ONE TABLET BY MOUTH EVERY DAY losartan 100 mg tablet 100 mg PO DAILY Patient Comments: TAKE ONE TABLET BY MOUTH EVERY DAY AT BEDTIME rosuvastatin 20 mg tablet 20 mg PO HS Patient Comments: TAKE ONE TABLET BY MOUTH EVERY DAY Ozempic 2 mg/dose (8 mg/3 mL) pen injector 2 mg SQ WEEKLY Patient Comments: INJECT 2 MG SUBCUTANEOUSLY ONCE A WEEK ondansetron 4 mg tablet,disintegrating 4 mg PO Q8H PRN (Reason: nausea and vomiting) Qty: 12 0RF Referrals Follow up/Referrals: Peña Palacios MD [Primary Care Provider] - See instructions Ivone Reynolds MD [Referring] - See instructions (call office for appointment) Activity Restrictions/Add. Instructions Additional Instructions/Restrictions: * Using a medicated shampoo with coal tar, salicylic acid, or ketoconazole * Keeping your body and environment cool * Eating a healthy, balanced diet * Gently combing your hair * Avoiding wearing hats Call and make appointment with Dermatology Continue using psoriasis shampoo Clinical Impressions Clinical Impression: Psoriasis Instructions Patient Instructions: DI for Psoriasis, Psoriasis, Scalp Psoriasis Print Language Print Language: Pashto Discharge ED Provider: Sherly Cleary [facility] [place] HPI General Stated complaint: rash on scalp Mode of Arrival: Ambulatory Source of Information: Patient Limitations: No Limitations Time Seen by Provider: 10/28/24 13:36 Description of Symptoms (Recalled from Triage Doc. by RN): PATIENT C/O RASH ON HEAD X 2 DAYS HEENT Symptoms (Recalled from RN notes): No Resp Symptoms (Recalled from RN notes): No Skin Symptoms (Recalled from RN notes): Yes MS Symptoms (Recalled from RN notes): No Functional Status (Recalled from RN notes): WNL History of Present Illness Provider Complaint: Patient states that she has been having problems with psoriasis on her scalp since May and has seen her PCP and Dermatology but what they have give her hasnt helped much States that she wanted to come in and get checked and see if there is something else she can try Related Data Home Medications ?Medication ?Instructions ?Recorded ?Confirmed duloxetine 30 mg capsule,delayed 30 mg PO BID Anxiety 03/17/18 02/18/24 release gabapentin 300 mg capsule 600 mg PO HS Pain 01/16/22 02/18/24 cetirizine 10 mg tablet (Zyrtec) 10 mg PO DAILY 02/18/24 02/18/24 hydrochlorothiazide 25 mg tablet 25 mg PO DAILY 02/18/24 02/18/24 losartan 100 mg tablet 100 mg PO DAILY 02/18/24 02/18/24 metoprolol succinate 50 mg 50 mg PO DAILY 02/18/24 02/18/24 tablet,extended release 24 hr omeprazole 10 mg capsule,delayed 10 mg PO DAILY 02/18/24 02/18/24 release rosuvastatin 20 mg tablet 20 mg PO HS 02/18/24 02/18/24 semaglutide 2 mg/dose (8 mg/3 mL) 2 mg SQ WEEKLY 02/18/24 02/18/24 subcutaneous pen injector (Ozempic) Previous Rx's ?Medication ?Instructions ?Recorded ondansetron 4 mg disintegrating 4 mg PO Q8H PRN nausea and 02/18/24 tablet vomiting #12 tabs Allergies Allergy/AdvReac Type Severity Reaction Status Date / Time ceftriaxone (From Rocephin) Allergy Intermediate Anaphylaxis Verified 01/23/22 08:32 suture Allergy Mild Redness of Verified 01/23/22 08:32 Skin Worker's Comp Is this a Worker's Comp case?: No [facility] Disclaimer: The information contained in this section may have been updated after the patient was seen, as this information can be updated by other users. Medical History (Updated 10/28/24 @ 13:44 by Sherly Cleary APRN) Depression Diabetes mellitus, type 2 Asthma Hyperlipidemia Hypertension Surgical History (Updated 02/18/24 @ 14:52 by Юлия Paul RN) History of tubal ligation History of hysterectomy History of cholecystectomy Social History Smoking Status: Never smoker alcohol intake: never substance use type: denies use current occupational status: retired Travel in the last 8 weeks: None household members: spouse housing: house current occupation: shoe store current occupational exposures/hazards: No caffeine: Yes Have you lived/traveled outside [place] in past 30 days?: No Contact w/someone who lives/traveled outside US past 30 days?: No Exposure to someone with infectious disease in past 14 days?: No Do you have a fever (greater than 100.4 F or 38 C)?: No Have you tested positive for COVID-19: No Exposed to someone with COVID-19 in past 14 days?: No Do you have a sore throat?: No Do you have a cough?: No Do you have any weakness?: No Do you have any diarrhea?: No Are you experiencing any unusual bleeding?: No Do you have any muscle aches/pain?: No Do you have any abdominal pain?: No Are you experiencing loss of taste or smell?: No ROS Obtained: Yes All systems reviewed & no additional complaints except as documented and Yes Systems reviewed as appropriate & no additional complaints except as documented Eyes Eyes: Reports system reviewed and no additional complaints, except as documented and Reports as per HPI ENT Ears, Nose, Mouth, and Throat: Reports system reviewed and no additional complaints, except as documented and Reports as per HPI Cardiovascular Cardiovascular: Reports system reviewed and no additional complaints, except as documented and Reports as per HPI Respiratory Respiratory: Reports system reviewed and no additional complaints, except as documented and Reports as per HPI Gastrointestinal Gastrointestingal: Reports system reviewed and no additional complaints, except as documented and as per HPI Integumentary/Breasts Skin/Breast: Reports system reviewed and no additional complaints, except as documented and Reports as per HPI Comments: Psoriasis rash on scalp Physical Exam General General appearance: alert and in no apparent distress ENT ENT exam: Present normal exam, normal oropharynx, mucous membranes moist and TM's normal bilaterally Respiratory Respiratory exam: Present normal lung sounds bilaterally; Absent respiratory distress or wheezes Cardiovascular Cardiovascular exam: Present regular rate, normal rhythm and normal heart sounds Neurological Exam Neurological exam: Present alert, oriented X3 and normal gait Skin Skin exam: Present rash (appears like psoriasis on scalp since May 2024) Medical Decision Making Medical Records Screening: Per USPSTF and CDC recommendations, given the prevalence of disease in our region, it is our hospital?s policy to screen for HIV and viral Hepatitis for all patients aged 18 and over and those with ongoing risk factors. Kurtis Inquiry Pt receiving controlled substance: No Kurtis was queried for this patient: No Vital Signs: 10/28/24 13:25 Temperature 98.2 F Temperature Source Oral Pulse Rate [Left Brachial] 77 Respiratory Rate 18 Blood Pressure [Left Arm] 143/88 H Blood Pressure Mean [Left Arm] 106 Blood Pressure Source [Left Arm] Automatic Cuff Blood Pressure Position [Left Arm] Sitting 02 Sat by Pulse Oximetry 98 Oxygen Delivery Method Room Air
[2024-10-28 13:46] VITALS: BP 143/88; PULSE 77; RESP 18; TEMP 36.8; O2SAT 98
== END 2024-10-28 13:48 | disposition home or self-care (01) ==
PROVIDERS: Emergency Provider Nurse Practitioner; PCP Family Medicine
DX: L40.9 Psoriasis, unspecified (principal); R21 Rash and other nonspecific skin eruption
CPT/HCPCS: 99212; G0381

== ENCOUNTER 2024-12-15 10:15 | Outpatient (CLI) | payer MEDICARE, SELFPAY ==
--- NOTE | 2024-12-15 10:21 | MM_ITS ---
PROCEDURE INFORMATION: Exam: MG Bilateral Screening 3D Mammography Exam date and time: 12/15/2024 10:23 AM Age: 69 years old Clinical indication: Screening examination TECHNIQUE: Imaging protocol: Bilateral Screening tomosynthesis and 2D mammography including computer-aided detection (CAD) when performed. COMPARISON: 1. MG MM DIG SCREENING MAMM BI W/CAD 09/10/2023 9:38 AM 2. MG MM DIG SCREENING MAMM BI W/CAD 07/30/2022 10:16 AM FINDINGS: MAMMOGRAPHY: Breast composition: There are scattered areas of fibroglandular density. Mass: No suspicious masses. Architectural distortion: None. Calcifications: No suspicious calcifications. Asymmetric density: None. Skin thickening: None. Axillary adenopathy: None. IMPRESSION: No mammographic evidence of malignancy. Annual screening is recommended unless otherwise clinically indicated. ASSESSMENT: BI-RADS Category 1: Negative.
== END 2024-12-15 23:59 | disposition home or self-care (01) ==
LOC: RAD 10:16
PROVIDERS: PCP Family Medicine; Visit Provider Family Medicine
DX: Z12.31 Encounter for screening mammogram for malignant neoplasm of breast (principal)
CPT/HCPCS: 77063; 77067

== ENCOUNTER 2025-04-27 12:55 | Outpatient (CLI) | payer MEDICARE, SELFPAY ==
--- OUTSIDE RECORDS SUMMARY | 2024-07-13 06:00 | XMS_ITS ---
Author Organization [facility] Address [address] [place] [id number] Care Team Providers Care Pilates Instructor Name Role Phone Mike Palacios Primary Care Provider [phone] Radha Salmon [phone] Allergies Allergen (clinical drug ingredient) Drug/Non Drug Allergy documented on EMR Reaction Allergy Type Onset Date Status KILZ, PAINT (uncoded) hives Allergy Active Medicinal cephalosporin and acting as antibacterial agent (FN) Cephalosporins anaphylaxis Drug Allergy Active REASON FOR VISIT 1 week Encounters Encounter Location Date Provider Diagnosis [facility] [address] [place] [id number] 07/13/2024 Radha Salmon Plan Of Treatment Next Appt Details Provider Name:Mike Ty, 04/28/2025 09:45:00 AM, [address], [place], [id number], Progress Notes * NASIM VALDEZDOB:1955 ( 70 yo F)Acc No.[id number]:07/13/2024 Progress Notes Patient: NASIM CHAHAL Provider: ANDREW Hu :1955 A ge:69 Y S ex:Female Date:07/13/2024 Address:[address], [id number] Pcp:Mike Palacios Subjective: * Chief Complaints: * 1 . 1 week. * HPI: C ardiology: 69 year old female presents with c/o Headaches P t presents today for a 1 week follow up on headaches. * ROS: D ERMATOLOGY: no R victor m. n o H noel. G ASTROENTEROLOGY: Positive for e ating and drinking well. n o N ausea. n o V omiting. n o D iarrhea. M USCULOSKELETAL: Joint pain y es, n taiwo. U ROLOGY: no D ifficulty urinating. n o B lood in urine. * Medical History: A llergies, Asthma, Hypertension, Diverticulosis, Anxiety, YOVANY, Lumbar spinal stenosis with chronic pain, Depression, OA, Hyperlipidemia, 2nd digit on [id number], Chronic Meningitis. * Surgical History: H ysterectomy , Cholecystectomy , Knee , Fissure Repair , Excision of lumbar synovial cyst - Dr. Ewing 11/2006, RT CTS- Dr. Ewing 11/2006, Nasal 03/2008, Tooth Pulled 07/23/2011, Colon Resection for Tics , Back- [facility] 09/13/2014, LT Thumb Joint Replacement 10/05/2019, C-scope/ Polyps/ [facility] . * Hospitalization/Major Diagno stic Procedure: B lood Pressure Elevated 12/2010, Sinus Infection- [place] [facility] 07/15/2012, Bowel Infection- [facility] 04/2014, Nausea, Headache- [facility] ER 2019, Chronic Meningitis- [facility] ER 10/13/2020. * Family History: F ather: , diagnosed with Heart Disease. M other: , diagnosed with Heart Disease. 6 brother(s) , 2 sister(s) . 1 son(s) , 2 daughter(s) . . * Social History: C URRENT TOBACCO USE S moking Status: Patient does NOT smoke. C affeine: yes, frequency:. Marital Status: . Past smoking status: no. Alcohol: socially, Type: , Frequency: ,Years: , Determination:. * Allergies: K ILZ, PAINT: hives, Cephalosporins: anaphylaxis - Allergy. Objective: * Vitals: Assessment: Plan: * Treatment: * Billing Information: * Visit Code: * Procedure Codes: * Electronic signature of Kylee Salmon APRN on 04/27/2025 at 12:59 PM EDT Sign off status: Pending * Provider: ANDREW Hu Date: 0 07/13/2024 Generated for Salvador foley/Ryann/Gerardo on: 0 04/27/2025 12:59 PM EDT History and Physical Notes * HPI (History of Present Illness) Category Sub-Category Detail Notes Category Not es Cardiology Headaches Pt presents toda y for a 1 week follow up on headaches
--- OUTSIDE RECORDS SUMMARY | 2024-10-04 10:00 | XMS_ITS ---
Author Organization [facility] Address [address] [facility] [address] [place] [id number] Care Team Providers Care Fashion Designer Name Role Phone Mike Palacios Primary Care Provider Radha Salmon Unavailable [phone] Allergies Allergen (clinical drug ingredient) Drug/Non Drug [...] MCG/ACT 1 puff(s) inhaled four times a day for 30 day(s) Active Trelegy Ellipta 100-62.5-25 MCG/ACT 1 puff(s) inhaled once a day for 30 days 01/27/2023 Active CareTouch CPAP & BIPAP Hose 1 DIRECTED *Please review and pick correct strength-formula tion from Medispan options. If intended option is not shown, discontinue and re-order from Quick Search* 01/24/2022 Active ZyrTEC Allergy 10 MG 1 tab(s) orally onc e a day Active ProAir Digihaler 108 (90 Base) MCG/ACT 2 puff(s) inhaled every 6 hours for 30 day(s) 09/01/2020 Active Gabapentin 300 MG 1 cap(s) qam, 2 at bedtime orally for 30 day(s) 08/12/2024 Active Ubrelvy 100 MG 1 tablet may take second dose at least 2 hours after first dose as needed Orally Once a day 07/08/2024 Active Nizoral Psoriasis Shampoo/Cond 3 % 1 application as needed Externally Three times a Week for 30 days 10/04/2024 Active Diflucan 150 MG 1 tablet Orally for 7 day(s) 10/04/2024 Active Mounjaro 7.5 MG/0.5ML 0.5 ml Subcutaneou s weekly for 30 days Active Doxycycline Hyclate 100 MG 1 tablet Orally Twice a day for 10 day(s) 07/06/2024 Active DULoxetine HCl 60 MG 1 cap(s) orally onc e a day for 90 days Active Nurtec 75 MG 1 tablet on the tongue and allow to dissolve Orally qd prn for 30 days 07/06/2024 Active Nizoral 1 % 1 application Externally 3 x weekly for 30 days 07/06/2024 Active Cyclobenzaprine HCl 5 MG 1 tablet at bed time as needed Orally tid prn for 30 day(s) 07/06/2024 Active HYDROcodone-Acetaminophe n 5-325 MG 1 tab(s) orally once a day as needed 03/11/2024 Active Losartan Potassium 100 MG 1 tab(s) orally at bedtime for 90 days Active Rosuvastatin Calcium 20 mg TAKE ONE TABLET BY MOUTH EVERY DAY for 90 Active hydroCHLOROthiazide 25 MG 1 cap(s) orally once a day Active Metoprolol Succinate ER 50 MG 1 tab(s) orally once a day Active Xanax 0.5 MG 1 tab(s) orally two times a day as needed 01/27/2023 Active EPINEPHrine 0.3 MG/0.3ML INJECT THE CONT ENTS OF 1 AUTO-INJECTOR INTRAMUSCULARLY ONCE NEEDED FOR ANAPHYLAXIS REACTION for 1 Active DIABETIC TESTING SUPPLIES TO TEST BID PRN *Please review for potential replacement for e-prescription and drug interaction check* Active Aspirin Low Dose 81 MG 1 tab(s) chewed o nce a day Active Esomeprazole Magnesium 20 MG 1 cap(s) orally once a day OTC Active CareTouch CPAP & BIPAP Hose 1 AUTO TITRATING DIRECTED *Please review and pick correct strength-formula tion from Pl[employer]i options. If intended option is not shown, discontinue and re-order from Quick Search* 10/23/2017 Active Vital Signs Blood pressure systolic 120 mm Hg 10/04/20 24 Blood pressure diastolic 90 mm Hg 024 Heart Rate 81 /min 10/04/2024 Height 66 in 10/04/2024 Weight 222.8 lbs 10/04/2024 BMI 35.96 kg/m2 10/04/2024 Encounters Encounter Location Date Provider Diagnosis [facility] [address] [facility] [address] [facility] [address] [place], [place] [id number] 10/04/2024 Radha Salmon Fungal skin infectio n [...] application as needed Externally Three times a Week for 30 days 10/04/2024 Diflucan 150 MG 1 tablet Orally for 7 day(s) 10/04/2024 Mounjaro 7.5 MG/0.5ML 0.5 ml Subcutaneou s weekly for 30 days Treatment Notes Assessment Notes Fungal skin infection disussed how to us e shampoo Weight loss counseling, encounter for wi ll increase x 4 weeks and increase again if tolerates; discussed dietary changes; will RTC in 3 months and will marisol fasting labs Next Appt Details Follow Up: 3 Months with lab s and prn, Reason: Provider Name:Mike Ty, 04/28/2025 09:45:00 AM, [address] [facility] [address] [facility], [address], [place], [id number], Progress Notes * NASIM VALDEZDOB:1955 ( 70 yo F)Acc No.[id number]:10/04/2024 Progress Notes Patient: NASIM CHAHAL Provider: ANDREW Hu :1955 A ge:69 Y S ex:Female Date:10/04/2024 Address:[address] [id number] Pcp:Mike Palacios Subjective: * Chief Complaints: * [...] Depression, OA, Hyperlipidemia, 2nd digit on left lqxn-[id number]-pltsfeuh [facility], Chronic M[facility]itis. * Surgical History: H ysterectomy [...] B lood Pressure Elevated 12/2010, Sinus Infection- [place] [facility] 07/15/2012, Bowel Infection- [facility] 04/2014, Nausea, Headache- [facility] 2019, Chronic Meningitis- [facility] 10/13/2020. * Family History: F ather: [...] *Please review and pick correct strength-formulation from Frontbackspan options. If intended option is not shown, [...] *Please review and pick correct strength-formulation from Frontbackspan options. If intended option is not shown, [...] 3 Months with labs and prn * Billing Information: * Visit Code: 41372 Office Visit, Est Pt., Level 3. * Procedure Codes: 41947 PULSE OX. G2211 Complex e/m visit add on. * Electronic signature of Kylee Salmon APRN on 04/27/2025 at 01:00 PM EDT Sign off status: Pending * Provider: ANDREW Hu Date: 1 12/05/2023 Generated for Salvador foley/Ryann/Gerardo on: 0 04/27/2025 01:00 PM EDT History and Physical Notes * [...]
--- OUTSIDE RECORDS SUMMARY | 2025-04-21 10:15 | XMS_ITS ---
Author Organization [facility] Address [address] [facility] [address] [place] [phone] Care Team Providers Care Cigar Tobacco Processing Supervisor Name Role Phone Mike Palacios Primary Care Provider Radha Salmon Unavailable [phone] Allergies Allergen (clinical drug ingredient) Drug/Non Drug [...] mg TAKE ONE CAPSULE BY MOUTH EVERY DAY for 90 Active Metoprolol Succinate ER 50 mg TAKE ONE TABLET BY MOUTH EVERY DAY for 90 Active Rosuvastatin Calcium 20 mg take 1 tablet orally once a day for 90 days Active Amoxicillin-Pot Clavulanate 500-125 MG 1 tablet Orally every 12 hrs for 7 days 04/21/2025 Active Mounjaro 7.5 MG/0.5ML INJECT 7.5 MG (0.5 ML) SUBCUTANEOUSLY ONCE WEEKLY for 30 Active HYDROcodone-Acetaminophe n 5-325 MG 1 tab(s) orally once a day as needed 02/01/2025 Active Gabapentin 300 MG 1 cap(s) qam, 2 at bedtime orally for 30 day(s) 01/10/2025 Active Ofloxacin 0.3 % 1 drop Ophthalmic 4 times a day 04/21/2025 Active Losartan Potassium 100 MG 1 tab(s) orally at bedtime for 30 days Active Diflucan 150 MG 1 tablet Orally for 7 day(s) 10/04/2024 Active Nizoral 1 % 1 application Externally 3 x weekly for 30 days 07/06/2024 Active Cyclobenzaprine HCl 5 MG 1 tablet at bed time as needed Orally tid prn for 30 day(s) 07/06/2024 Active Nurtec 75 MG 1 tablet on the tongue and allow to dissolve Orally qd prn for 30 days 07/06/2024 Active Nizoral Psoriasis Shampoo/Cond 3 % 1 application as needed Externally Three times a Week for 30 days 10/04/2024 Active Ubrelvy 100 MG 1 tablet may take second dose at least 2 hours after first dose as needed Orally Once a day 07/08/2024 Active Doxycycline Hyclate 100 MG 1 tablet Orally Twice a day for 10 day(s) 07/06/2024 Active Esomeprazole Magnesium 20 MG 1 cap(s) orally once a day OTC Active EPINEPHrine 0.3 MG/0.3ML INJECT THE CONT ENTS OF 1 AUTO-INJECTOR INTRAMUSCULARLY ONCE NEEDED FOR ANAPHYLAXIS REACTION for 1 Active hydroCHLOROthiazide 25 MG 1 cap(s) orally once a day Active Aspirin Low Dose 81 MG 1 tab(s) chewed o nce a day Active Albuterol Sulfate HFA 108 (90 Base) MCG/ACT 1 puff(s) inhaled four times a day for 30 day(s) Active Trelegy Ellipta 100-62.5-25 MCG/ACT 1 puff(s) inhaled once a day for 30 days 01/27/2023 Active Xanax 0.5 MG 1 tab(s) orally two times a day as needed 01/27/2023 Active CareTouch CPAP & BIPAP Hose 1 AUTO TITRATING DIRECTED *Please review and pick correct strength-formula tion from SwapBeat[employer]pan options. If intended option is not shown, discontinue and re-order from Quick Search* 10/23/2017 Active DIABETIC TESTING SUPPLIES TO TEST BID PRN *Please review for potential replacement for e-prescription and drug interaction check* Active CareTouch CPAP & BIPAP Hose 1 DIRECTED *Please review and pick correct strength-formula tion from Sw[employer]Beat[employer]pan options. If intended option is not shown, discontinue and re-order from Quick Search* 01/24/2022 Active ZyrTEC Allergy 10 MG 1 tab(s) orally onc e a day Active ProAir Digihaler 108 (90 Base) MCG/ACT 2 puff(s) inhaled every 6 hours for 30 day(s) 09/01/2020 Active Vital Signs Blood pressure systolic 130 mm Hg 04/21/20 25 Blood pressure diastolic 76 mm Hg 025 Heart Rate 83 /min 04/21/2025 Height 66 in 04/21/2025 Weight 214.2 lbs 04/21/2025 BMI 34.57 kg/m2 04/21/2025 Encounters Encounter Location Date Provider Diagnosis [facility] [address] [facility] [address] [facility] [address] [place], [place] [phone] 04/21/2025 Mike Palacios Cervical adenopathy R59.0 ; [...] 500-125 MG 1 tablet Orally every 12 hrs for 7 days 04/21/2025 Ofloxacin 0.3 % 1 drop Ophthalmic 4 times a day 04/21/2025 Next Appt Details Follow Up: 1 Week, Reason: Provider Name:Mike Ty, 04/28/2025 09:45:00 AM, [address] [facility] [address] [facility], [address], [place], [phone], Progress Notes * NASIM MARTINEZDOB:1955 ( 70 yo F)Acc No.[id number]:04/21/2025 Progress Notes Patient: NASIM CHAHAL Provider: Mike Palacios M.D. :1955 A ge:69 Y S ex:Female Date:04/21/2025 Address:[address], [place], [id number] Subjective: * Chief Complaints: * 1 . [...] Depression, OA, Hyperlipidemia, 2nd digit on left pcoz-vcqgbfbe-rxoxmkso [facility], Chronic Meningitis. * Surgical History: H ysterectomy , Cholecystectomy , Knee , Fissure Repair , Excision of lumbar synovial cyst - Dr. Ewing 11/2006, RT CTS- Dr. Ewing 11/2006, Nasal 03/2008, Tooth Pulled 07/23/2011, Colon Resection for Tics , Back- [facility] 09/13/2014, LT Thumb Joint Replacement 10/05/2019, C-scope/ Polyps/ [facility] . * Hospitalization/Major Diagno stic Procedure: B lood Pressure Elevated 12/2010, Sinus Infection- [place] [facility] 07/15/2012, Bowel Infection- [facility] 04/2014, Nausea, Headache- [facility] ER 2019, Chronic Meningitis- [facility] ER 10/13/2020. * Family History: [...] *Please review and pick correct strength-formulation from High Tower Softwarean options. If intended option is not shown, [...] *Please review and pick correct strength-formulation from SwapBeatsspan options. If intended option is not shown, [...] Temp: 98.6, BP: 130/76, HR: 83, Nurse: [facility], Ht: 66, BMI:34.57. * Examination: E NT/Respiratory: General Appearance: N AD. Eyes: T here appears to be a small fissure at the medial canthus of the right eye with some mild erythema. No induration or drainage.. Ears: a uditory canals normal bilaterally, TM's WNL. Nose : c ongested. Oral cavity : n o erythema or exudate seen on pharynx. Neck : S wollen and tender nodes/gland at [...] Cardoso. * Follow Up: 1 Week * Billing Information: * Visit Code: 62918 Office Visit, Est Pt., Level 3. * Procedure Codes: G2211 Complex e/m visit add on. 1036F TOBACCO NON-USER. G8783 BP SCR PRFRM RCMDD DEFIND SCR INTVL. G8752 MOST RECENT SYSTOLIC BP < 140MM HG. G8754 MOST RECENT DIASTOLIC BP < 90MM HG. * Electronic signature of Mike Palacios MD on 04/27/2025 at 12:59 PM EDT Sign off status: Pending * Provider: Mike Palacios M.D. Date: 0 04/21/2025 Generated for Darnelli ng/Fagunnarg/eTransmitting on: 0 04/27/2025 12:59 PM EDT History [...]
--- OUTSIDE RECORDS SUMMARY | 2025-04-27 12:59 | XMS_ITS ---
Author Organization Unknown Medications Date Medication Dosage DosageUnit StartDate StopDate StopReason Active DoseQuantity DoseUnit Dispense DispenseUnit Refills NdcCode DrugCode PharmacyId IsPrescription MappedMedication Srcstatus 04/13 00:00 :00 Losartan Potassium 100 MG Tablet 1 30 0 82 832019 410 Start 04/13 00:00 :00 Losartan Potassium 100 MG Tablet 0 90 1 82 [id number] 410 Stop 04/14 00:00 :00 Mounjaro 7.5 MG/0.5M L Solution Auto-inject or 1 2 Millilite r 0 [id number] 480 Start 04/14 00:00 :00 Mounjaro 7.5 MG/0.5M L Solution Auto-inject or 0 2 Millilite r 0 [id number] 480 Stop 03/22 00:00 :00 Mounjaro 7.5 MG/0.5M L Solution Auto-inject or 1 2 Millilite r 0 [id number] 480 Start 03/22 00:00 :00 Mounjaro 7.5 MG/0.5M L Solution Auto-inject or 0 2 Millilite r 0 [id number] 480 Stop 02/17 00:00 :00 Mounjaro 7.5 MG/0.5M L Solution Auto-inject or 1 2 Millilite r 0 [id number] 480 Start 02/17 00:00 :00 Mounjaro 7.5 MG/0.5M L Solution Auto-inject or 0 2 Millilite r 1 [id number] 480 Stop
--- OUTSIDE RECORDS SUMMARY | 2025-04-27 12:59 | XMS_ITS | Data Portability ---
Author Organization [facility] GILDA MadridS CROCKETT CLOSED Address [address] [place] [address] Care Team Providers Care Receiving Weigher Name Role Phone PEÑA LOZA Primary Care Provider [phone] Assessment No assessment recorded. Plan of Treatment Reminders Order Date Submit Date Provider Last Modified By Organization Details Last Modified Time Details Appointments NEW PATIENT DAK 2024 11:00A M ALTAGRACIA HILLMAN PA-C Not available Not available Not available Lab None recorded. Referral None recorded. Procedures None recorded. Surgeries None recorded. Imaging None recorded. Medication Orders Voltaren 1 % topical gel 2016 017 DBA_BACKFI [facility], [address] [place] [address], [place], [place], [phone], 05/09/2022 03:48:32 Patient TargetsNo targets recorded. Patient Instructions Encounter Date Encounter Id Patient Instructions Last Modified By Organization Details Last Modified Time 10/18/2016 [id number] Routine post-op care and restrictions are discussed with the patient, questions answered. Follow-up in 4 weeks, sooner, prn. She would like to follow up with Dr. 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 flavia Not available 10/18/2016 11:42:18 Reason for Referral None Reported. Results Created Date Observation Date Name Description Value Unit Range Abnormal Flag Note LastModifiedBy Organization Detail LastModifiedTime 09/06/20 19 09/06/2019 creat inine , serum or plasm a creatinine 0.96 mg/dL 0.50-0 .95 high Not Available [facility] [address] [place] [address], [phone], 09/06/2019 13:03:37 09/06/20 19 09/06/2019 MRI, lumba r spine , w/wo contr ast [facility] [address] [place] [address] Vargas mercado Name: NASIM mercado : [phone] Patimane mercado Orderi ng Provid er: JEAN Cole MANDEEP EXAM DATE: 2018 EXAM: MR LUMBAR SPINE W/WO CONTRA ST HISTOR Y: Back pain. Previo us lumbar spine surger y COMPAR SARAH: None. FINDIN GS: The lumbar spine is normal in alignm ent. There is no sublux ation. There is no eviden ce of fractu re. There is mild anteri or margin al osteop hytic spurri ng. No pathol ogic lesion is identi fied in the lumbar spine. The conus medull julio is normal in appear ance at the L1-L2 level. T12-L1 : Negati ve. L1-L2: There is a minima l disc bulge. . There is [no centra l canal stenos is. There is no neural forami nal stenos is. L2-L3: There is a mild disc bulge. There is no centra l canal stenos is. There is no neural forami nal stenos is. Mild bilate ral facet DJD L3-L4: Mild diffus e protru tano or bulge. Mild endpla te spurri ng. Minima l narrow ing of the neural forami na bilate rally. L4-L5: Possib le postsu rgical change s at this site. Diffus e annula r disc bulge. Minima l narrow ing of the neural forami na bilate rally. No spinal stenos is. There is mild to modera te bilate ral facet degene rative change . L5-S1: There is a mild disc bulge and mild endpla te spurri ng. There is no centra l canal stenos is. There is no signif icant neural forami nal stenos is. After intrav enous admini strati on of [address] ([facility] [address]- [id number] ), there is no abnorm al enhanc ement in the lumbar spine. IMPRES TANO: 1. Fairly mild diffus e degene rative disc diseas e change s are presen t as descri bed above Interp reted By: Bernardo Gatica MD Electr onical ly Signed By: Bernardo Gatica MD on 1:43 PM [email or web address] [facility] [address] [place] [address], [phone], 09/14/2019 14:44:10 09/06/20 19 09/06/2019 XR, lumbo sacra l spine , 2 or 3 view, bendi ng only [place] [address] [address] Patimane t Name: NASIM mercado : [phone] Vargas mercado Orderi ng Provid er: JEAN KAUFMAN EXAM DATE: 2018 EXAM: XR LUMBAR SPINE FLEX/E XT ONLY CLINIC AL INFORM ATION: Back pain. IMAGES PROVID ED: Latera l views of the lumbar spine in flexio n and extens ion. COMPAR SARAH: None. FINDIN GS: Verteb ral body height s are normal . Multil evel disc space reduct ion is seen with anteri or and latera l osteop hytes. No abnorm ality of alignm ent is seen. No instab ility is seen on flexio n or extens ion. No radiog raphic eviden ce of injury is noted. IMPRES TANO: Normal radiog raphic series of the lumbar spine. No instab ility. Interp reted By: Giovanna Lopez MD Electr onical ly Signed By: Giovanna Lopez MD on 4:08 PM [email or web address] [facility] [address], [address], 09/16/2019 08:33:37 Result Notes Documentation Provider Name and Address Organization Details Recorded Time Mri, Lumbar Spine, W/wo Contrast : [address] [address] Patient Name: NASIM VALDEZ Patient : 1955 Patient Ordering Provider: DEIDRA KAUFMAN EXAM DATE: 09/06/2019 EXAM: MR LUMBAR SPINE W/WO CONTRAST HISTORY: Back pain. Previous lumbar spine surgery COMPARISON: None. FINDINGS: The lumbar spine is normal in alignment. There is no subluxation. There is no evidence of fracture. There is mild anterior marginal osteophytic spurring. No pathologic lesion is identified in the lumbar spine. The conus medullaris is normal in appearance at the L1-L2 level. T12-L1: Negative. L1-L2: There is a minimal disc bulge.. There is [no central canal stenosis. There is no neural foraminal stenosis. L2-L3: There is a mild disc bulge. There is no central canal stenosis. There is no neural foraminal stenosis. Mild bilateral facet DJD L3-L4: Mild diffuse protrusion or bulge. Mild endplate spurring. Minimal narrowing of the neural foramina bilaterally. L4-L5: Possible postsurgical changes at this site. Diffuse annular disc bulge. Minimal narrowing of the neural foramina bilaterally. No spinal stenosis. There is mild to moderate bilateral facet degenerative change. L5-S1: There is a mild disc bulge and mild endplate spurring. There is no central canal stenosis. There is no significant neural foraminal stenosis. After intravenous administration of 10 cc Gadavist ([facility] [id number]), there is no abnormal enhancement in the lumbar spine. IMPRESSION: 1. Fairly mild diffuse degenerative disc disease changes are present as described above Interpreted By: Bernardo Gatica MD [facility] 09/14/2019 14:44:10 Xr, Lumbosacral Spine, 2 Or 3 View, Bending Only : [facility] [address] [place] [address] Patient Name: NASIM VALDEZ Patient : 1955 Patient Ordering Provider: DEIDRA KAUFMAN EXAM DATE: 09/06/2019 EXAM: XR LUMBAR SPINE FLEX/EXT ONLY CLINICAL INFORMATION: Back pain. IMAGES PROVIDED: Lateral views of the lumbar spine in flexion and extension. COMPARISON: None. FINDINGS: Vertebral body heights are normal. Multilevel disc space reduction is seen with anterior and lateral osteophytes. No abnormality of alignment is seen. No instability is seen on flexion or extension. No radiographic evidence of injury is noted. IMPRESSION: Normal radiographic series of the lumbar spine. No instability. Interpreted By: Lasha Lopez MD RA KAUFMAN MD [address] [place], [address], [facility] 09/16/2019 08:33:37 Problems Name Problem SNOMED Code Status Onset Date Resolution Date Notes Provider Name and Address Organization Details Recorded Time Carpal tunnel syndrome 76591044 Active 2015 PAUL DWYER PA-C [address] [place], [address] , [facility] 6 11:41:36 Idiopathi c osteoarth ritis 081238954 Active 2015 From Automated Load;Provi cydney: Umansky, Aguila;St atus: Active Not Available [facility] 7 07:55:04 Problem Notes None recorded. Procedures Surgical History Date Name Laterality Status Provider Name and Address Organization Details Recorded Time 6 Orthopedic Surgery completed Anna Vy [facility] 10/18/2016 11:24:31 Ears/Nose/Thro at Surgery completed Anna Vy [facility] 10/18/2016 11:23:57 Back Surgery completed Annajustin CraigVy [facility] 10/18/2016 11:24:13 Imaging Results None recorded. Procedure Notes None recorded. Medical Equipment None Reported. Allergies Allergen ID Allergen Name Allergen Category Reaction Reaction Severity Criticality Documentation Date Start Date Code Code System Note Provider Name and Address Organization Details Recorded Time 010922 codeine medicatio n hives severe Not available 10/18/2016 2670 RxNorm Anna Craigtaker [facility] 6 11:22:00 Medications Name Sig Start Date Stop Date Status Note LastModified by Organization Details LastModified Time Prescript ion - Prior Authoriza tion Request active Not Available Not Available Not Available Anucort-H C 25 mg supposito ry Daily active Duration : 10 days;Trip quency: daily;Me dication Descript ion: hydrocor tisone topical; Dosage:1 ; Route:re ctal; refills: 0; Quantity :12 supposit ory Not Available Not Available Not Available Nexium 40 mg capsule,d elayed release Daily active Duration : 30 days;Trip quency: daily;Me dication Descript ion: esomepra zole; Dosage:1 ; Route:or al; refills: 0; Quantity :30 enteric coated capsule Not Available Not Available Not Available hydrochlo rothiazid e 25 mg tablet Daily active Duration : 10 days;Trip quency: daily;Me dication Descript ion: hydrochl orothiaz landy; Dosage:1 ; Route:or al; refills: 0; Quantity :30 tablet Not Available Not Available Not Available gabapenti n 100 mg capsule Daily active Frequenc y: daily;Me dication Descript ion: gabapent in; Dosage:1 ; Route:or al; refills: 0 Not Available Not Available Not Available lisinopri l active Medicati on Descript ion: lisinopr il; refills: 0 Not Available Not Available Not Available Celebrex Daily 10/18 completed Frequenc y: daily;Me dication Descript ion: celecoxi b; Dosage:1 ; Route:or al; refills: 5; Quantity :30 capsule Not Available Not Available Not Available Voltaren 1 % topical gel APPLY 2 GRAM TO THE AFFECTED AREA(S) BY TOPICAL ROUTE 4 TIMES PER DAY 2016 active Not Available Not Available Not Avai lable Vitals Date Recorded Body height Body weight Body mass index (BMI) Provider Name and Address Organization Details Last Updated DateTime 11/15/2016 167.64 cm 16883.4 g 33.9 kg/m2 Irma Collazo [facility] 11/15/2016 11:02:33 Date Recorded Body height Body mass index (BMI) Body weight Systolic blood pressure Diastolic blood pressure Provider Name and Address Organization Details Last Updated DateTime 08/30/2019 167.64 cm 35.8 kg/m2 861095.5 1 g 132 mm[Hg] 92 mm[Hg] Sienna Montalvo [facility] 9 10:45:39 Date Recorded Body height Body weight Body mass index (BMI) Provider Name and Address Organization Details Last Updated DateTime 10/18/2016 167.64 cm 83045.4 g 33.9 kg/m2 Anna Mcclellan [facility] 10/18/2016 11:21:11 Social History Question Answer Notes LastModified by Organizat ion Details LastModified Time Tobacco Smoking Status Former [facility]/18/2016 11:23:18 Accident Related Injury No Information not available 11/15/2016 What Is Your Level Of Caffeine Consumption? Moderate [email or web address] Information not available 11/15/2016 How Much Tobacco Do You Chew? None [email or web address] Information not available 11/15/2016 When Did You Quit Smoking? 16+yearssince lastcigarette [email or web address] Information not available 11/15/2016 Which Of Your Hands Is Dominant? Right [email or web address] Information not available 11/15/2016 Which Hand Is Involved? Left [email or web address] Information not available 11/15/2016 Have You Been Treated For This Problem Before? Yes Surgery 10/03/2016 Information not available 11/15/2016 Will This Be Filed As Workers' Compensation? No [email or web address] Information not available 11/15/2016 How Many Years Have You Smoked Tobacco? 15 [email or web address] Information not available 10/18/2016 Work Related Injury? No [email or web address] Information not available 11/15/2016 Sex: Unknown Functional Status Question Answer Note LastModified by Organizat ion Details LastModified Time Do you use any illicit or recreational drugs? No [email or web address] Information not available 11/15/2016 What is your level of alcohol consumption? Occasional [email or web address] Information not available 11/15/2016 Are you currently employed? No [email or web address] Information not available 11/15/2016 What is your occupation? retired [email or web address] Information not available 11/15/2016 Mental Status None recorded. Family History Relationship Description Onset Age of this Age Resolved Age Notes LastModified by Organization Details LastModified Time Mother Arthritis [email or web address] Not availa ble 10/18/2016 11:23:07 Father Arthritis [email or web address] Not availa ble 10/18/2016 11:23:07 Medical History Condition Response Allergies/Hayfever Y Anxiety/Depression Y Gout N Thyroid Disease N Heart Conditions N Kidney Stones N Hernia N Migraines N COPD N Glaucoma N Pneumonia N Skin Problems N Immune System Disorder N Anesthesia Complications N Heart Attack (DE) N Mental Illness N Neurological Problems N Diabetes N Rheumatic Fever N Bleeding Disorder N Arthritis Y Seizures/Epilepsy N Blood Clot N Tuberculosis N Genetic Disorder N AIDS/HIV N Cancer N Stroke N Asthma Y Blood Thinners N Alcohol Overuse/Alcohol Abuse N Sleep Apnea N High Cholesterol Y Liver Disease N Included as Review of Systems Y Hypertension Y Osteoporosis N Kidney Disease N Gynecological HistoryNo gynecological history recorded. Obstetrics History GPAL:G 0 P 0 0 0 0 Past Encounters Encounter ID Performer Location Encounter Start Date Encounter Closed Date Diagnosis/Indication Diagnosis SNOMED-CT Code Diagnosis ICD10 Code Diagnosis Note [id number] PAUL DWYER PA-C [facility] [address] [place] [address] 10/18/2016 11:06:37 10/18/2016 11:41:22 Carpal tunnel syndrome 80856114 G56.02 doing well status post left carpal tunnel release [id number] AGUILA JUAN MD [facility] [address] [place] [address] 11/15/2016 10:09:09 11/15/2016 12:15:28 Carpal tunnel syndrome 06538980 G56.02 Doing well - -constant preop numbness will take time to resolve. [facility] DJD still painful - wants to try voltaren gel. [id number] IVORY DONOHUE PA-C [facility] [address] [place] [address] 08/30/2019 10:27:18 08/30/2019 11:35:11 Lumbar radiculopathy 795589375 M54.16 -Patient presents with progressiv e mechanical low back and left greater than right posterior leg pain over the last 3 years. History of a prior left L4-5 hemilamine ctomy in 2013 with a remote discectomy at the same site. Exam is nonfocal without any localizing signs. We'll further investigat e with flexion-ex tension lumbar films and a lumbar MRI with and without contrast. This is to look for any signs of occult instabilit y and severe stenosis/n eurocompre ssion, respective ly. Do think it's a good idea for her to get an do some physical therapy in the meantime. We'll plan to see her back in 6-8 weeks to reassess her progress and review her imaging. We did discuss that if we see anything critical on her imaging, we will have her return to clinic sooner. She has called any questions, concerns, worsening symptoms. She is happy with this plan. Pain of le ft shoulder joint [id number] 7000720 M25.512 -6 months of left shoulder pain. History and exam. A few more consistent with a primary shoulder issue rather than a cervical radiculopa thy. Discussed having her see orthopedic s for this. She declines at this time. She will discuss having the physical therapist look at this when he work with her for her low back issues. Health Concerns Section Related Observation LastModified by Organization Detai ls LastModified Time None Recorded Concern Status LastModified by Organization Details LastModified Time None Recorded Advance Directives Directive None Recorded Payers Insurance Date Sequence Insurance Name Policy Number Policy Winslow Covered Member ID Winslow Member ID Guarantor Name 10/15/2019 1 [employer] (MEDICARE REPLACEMENT/A DVANTAGE - PPO) Nasim Valdez [id number] Nasim Valdez 09/27/2020 1 BC[employer]-OBED: [place] [employer]AL[employer] [facility] [id number] Nasim Valdez [id number] Naism Eula Michelle Notes Date Note Type Note Provider Name and Address Organization Details Recorded Time 10/18/2016 text/html The patient is h ere for a routine scheduled postoperative follow-up visit. She states the long finger is still somewhat numb, but the rest of the fingers have recovered nicely. She only had pain for one day. PAUL DWYER PA-C [address] [place], [address], [facility] 10/18/2016 11:42:50 11/15/2016 text/html No intermittent paresthesias, no pounding but still numb. AGUILA JUAN MD [address] [place], [address], [facility] 11/15/2016 11:21:07 08/30/2019 text/html Ms. Michelle truong ts to clinic at the request of Dr. Peña Loza for evaluation of low back and bilateral leg symptoms. 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 She underwent a left L4-5 hemilaminectomy/mes ial facetectomy/foramin otomy on 13 September 2014. Previously had undergone a left L4-5 lumbar microdiscectomy. She reports she did well from her last operation. Over the last 3 years, she has developed progressive Axial and mechanical low back pain with referred pain into the buttocks down the posterior thighs, calves, and to the bottom of the feet. This described as a shooting pain with a burning component. It is constant, however it is significantly worsened by standing and walking for prolonged periods. It is better with recumbency. Christiano gives some help. She endorses some subjective weakness in her legs when the pain is particularly bad. Denies any foot drop/ankle weakness, bowel or bladder changes, or saddle anesthesia/sensory deficits.She does not have any updated lumbar imaging. Patient also tells me that she's had about 6 months of increasing left shoulder pain. There is some referred pain into the deltoid and bicep, but does not go into the forearm or down to the hand. There is no associated neck pain. This pain is worse with movement of her shoulder. She tells me she is unable to put her shoulder behind her back secondary to this pain. She tells me she has not had this evaluated previously. IVORY DONOHUE PA-C [address] [place], [address], [facility] 08/30/2019 11:21:03 OBGyn Episode No OBEpisode recorded.
--- OUTSIDE RECORDS SUMMARY | 2025-04-27 13:00 | XMS_ITS | Patient Health Record ---
[facility] Organization [facility] Address [address] [place] [id number] Care Team Providers Care Forensic Engineer Name Role Phone Mike Palacios Primary Care Provider Radha Salmon Unavailable [phone] Danielle Montalvo Unavailable [phone] Ryan Johnson Unavailable [phone] Allergies Allergen (clinical drug ingredient) Drug/Non Drug Allergy documented on EMR Reaction Allergy Type Onset Date Status MONSTER LOPEZ (uncoded) hives Allergy Active Medicinal cephalosporin and acting as antibacterial agent (FN) Cephalosporins anaphylaxis Drug Allergy Active Results Component Value Reference Range Notes CBC Fingerstick (in house) Reviewed date:07/06/2024 01:31:04 PM Interpretation: Performing Lab: Notes/Report: wbc 7.6 3.5 - 10 lym 36.5 15 - 50 mid 6.7 2 - 15 gran 56.8 35 - 80 rbc 4.44 3.5 - 5.5 hgb 13.5 11.5 - 16.5 hct 42.0 35 - 55 mcv 94.5 75 - 100 mch 30.5 25 - 35 mchc 32.3 31 - 38 plat 204 100 - 400 Mammogram Reviewed date:12/20/2024 08:52:09 AM Interpretation:Negative, annual f/u Performing Lab: Notes/Report: Negative, annual f/u result Negative, annual f/u Medications Medication SIG (Take, Route, Frequency, Duration) Notes Start Date End Date Status Nizoral Psoriasis Shampoo/Cond 3 % 1 application as needed Externally Three times a Week for 30 days 10/04/2024 Active Ubrelvy 100 MG 1 tablet may take second dose at least 2 hours after first dose as needed Orally Once a day 07/08/2024 Active CareTouch CPAP & BIPAP Hose 1 DIRECTED *Please review and pick correct strength-formula tion from [employer] options. If intended option is not shown, discontinue and re-order from Quick Search* 01/24/2022 Active DULoxetine HCl 60 mg TAKE ONE CAPSULE BY MOUTH EVERY DAY for 90 Active ZyrTEC Allergy 10 MG 1 tab(s) orally onc e a day Active Metoprolol Succinate ER 50 mg TAKE ONE TABLET BY MOUTH EVERY DAY for 90 Active Albuterol Sulfate HFA 108 (90 Base) MCG/ACT 1 puff(s) inhaled four times a day for 30 day(s) Active Trelegy Ellipta 100-62.5-25 MCG/ACT 1 puff(s) inhaled once a day for 30 days 01/27/2023 Active Rosuvastatin Calcium 20 mg take 1 tablet orally once a day for 90 days Active HYDROcodone-Acetaminophe n 5-325 MG 1 tab(s) orally once a day as needed 02/01/2025 Active Gabapentin 300 MG 1 cap(s) qam, 2 at bedtime orally for 30 day(s) 01/10/2025 Active Ofloxacin 0.3 % 1 drop Ophthalmic 4 times a day 04/21/2025 Active ProAir Digihaler 108 (90 Base) MCG/ACT 2 puff(s) inhaled every 6 hours for 30 day(s) 09/01/2020 Active Mounjaro 7.5 MG/0.5ML INJECT 7.5 MG (0.5 ML) SUBCUTANEOUSLY ONCE WEEKLY for 30 Active Losartan Potassium 100 MG 1 tab(s) orally at bedtime for 30 days Active Diflucan 150 MG 1 tablet Orally for 7 day(s) 10/04/2024 Active Xanax 0.5 MG 1 tab(s) orally two times a day as needed 01/27/2023 Active CareTouch CPAP & BIPAP Hose 1 AUTO TITRATING DIRECTED *Please review and pick correct strength-formula tion from [employer] options. If intended option is not shown, discontinue and re-order from Quick Search* 10/23/2017 Active DIABETIC TESTING SUPPLIES TO TEST BID PRN *Please review for potential replacement for e-prescription and drug interaction check* Active Nizoral 1 % 1 application Externally 3 x weekly for 30 days 07/06/2024 Active Doxycycline Hyclate 100 MG 1 tablet Orally Twice a day for 10 day(s) 07/06/2024 Active Cyclobenzaprine HCl 5 MG 1 tablet at bed time as needed Orally tid prn for 30 day(s) 07/06/2024 Active Nurtec 75 MG 1 tablet on the tongue and allow to dissolve Orally qd prn for 30 days 07/06/2024 Active Esomeprazole Magnesium 20 MG 1 cap(s) orally once a day OTC Active EPINEPHrine 0.3 MG/0.3ML INJECT THE CONT ENTS OF 1 AUTO-INJECTOR INTRAMUSCULARLY ONCE NEEDED FOR ANAPHYLAXIS REACTION for 1 Active Amoxicillin-Pot Clavulanate 500-125 MG 1 tablet Orally every 12 hrs for 7 days 04/21/2025 Active hydroCHLOROthiazide 25 MG 1 cap(s) orally once a day Active Aspirin Low Dose 81 MG 1 tab(s) chewed o nce a day Active Immunizations Vaccine Route Administration Date Status Comme nts COVID 19 Xenia Unknown 02/10/2021 Administered COVID 19 Xenia Unknown 02/10/2021 Administered COVID 19 Pfizer Unknown 10/10/2021 Administered DT, 7 YEARS OR OLDER Unknown 01/04/1997 Administered Fluzone PF Quad (6-35 months) Unknown 08/28/2022 Administered Hepatitis A (adult) IM Intramuscular 11/23/2018 Administer ed PNEUMOVAX 23 VACCINE IM Intramuscular 10/13/2023 Administe red Prevnar (PCV13) IM Intramuscular 02/04/2020 Administered Shingrix IM Intramuscular 11/23/2018 Administered Tetanus Tdap-Adacel (over 7yrs) IM Intramuscular 06/06/2010 Administered xFlu shot-36 months and older IM Intramuscular 09/09/2008 Administered Problems Problem Type SNOMED Code ICD Code Onset Dates Problem Status W/U Status Risk Notes Problem Gastroesophageal reflux disease (009745138) GERD (gastroesophageal reflux disease) (K21.9) Active confirmed Problem 60759068 Hyperglycemia (R73.9) Active confirmed Problem Hypertension (89479933) HTN (hypertension) (I10) Active confirmed Problem Hyperlipidemia (72922803) Hyperlipidemia (E78.5) Active confirmed Problem Anxiety (74220050) Anxiety (F41.9) Active confi rmed Problem 35872828 Hypertension (I10) Active confirmed Problem Environmental allergy (532599290) Environmental allergies (Z91.048) Active confirmed Problem Obstructive sleep apnea (42195440) Obstructive sleep apnea (G47.33) Active confirmed Problem Chronic meningitis (73670654) Chronic meningitis (G03.1) Active confirmed Problem 343146503 Chronic pain syndrome (G89.4) Active confirmed Problem 48136148 Chronic maxillar y sinusitis (J32.0) Active confirmed Problem Depression (382406061) Depression (F32.9) Active confirmed Problem Chronic bronchitis (85965416) Chronic bronchitis (J42) Active confirmed Problem Type II diabetes mellitus without complication (801114609) T2DM (type 2 diabetes mellitus) (E11.9) Active confirmed Problem Headache (92725004) Headache syn drome (G44.89) Active confirmed Problem 594422120 Primary osteoarthritis of both knees (M17.0) Active confirmed Problem 80692300 Carpal tunnel syndrome of left wrist (G56.02) Active confirmed Problem 957468216 BMI 31.0-31.9,adult (Z68.31) Active confirmed Problem Arthropathy (045653641) Arthritis involving multiple sites (M12.9) Active confirmed Problem Vitamin D deficiency (54852285) Low vitamin D level (E55.9) Active confirmed Problem Chronic mixed headache syndrome (72523735) Chronic mixed headache syndrome (G44.89) Active confirmed Problem 808333629 Bee sting allerg y (Z91.030) Active confirmed Vital Signs Heart Rate 83 /min 04/21/2025 Blood pressure diastolic 76 mm Hg 04/21/2025 Height 66 in 04/21/2025 Blood pressure systolic 130 mm Hg 04/21/2025 Weight 214.2 lbs 04/21/2025 BMI 34.57 kg/m2 04/21/2025 Encounters Encounter Location Date Provider Diagnosis [facility] [address] [place], [place] [id number] 05/03/2024 Radha Salmon T2DM (type 2 diabete s mellitus) E11.9 [facility] [address] [place], [place] [id number] 07/06/2024 Radha Salmon Neck pain M54.2 ; Sc alp cyst L72.9 and Headache syndrome G44.89 [facility] [address] [place], [place] [id number] 10/04/2024 Radha Salmon Fungal skin infectio n B36.9 ; T2DM (type 2 diabetes mellitus) E11.9 and Weight loss counseling, encounter for Z71.3 [facility] [address] [place], [place] [id number] 04/21/2025 R Chris Philip Cervical adenopathy R59.0 ; Conjunctivitis H10.9 ; T2DM (type 2 diabetes mellitus) E11.9 and Hypertension I10 [facility] [address] [place], [place] [id number] 05/05/2024 Ryan [place] Spinal stenosis of lumbar region with neurogenic claudication M48.062 [facility] [address] [place], [place] [id number] 07/06/2024 Radha Salmon [facility] [address] [place], [place] [id number] 07/08/2024 Radha Salmon [facility] [address] [place], [place] [id number] 08/12/2024 J Bg Montalvo Spinal stenosis of lumbar region with neurogenic claudication M48.062 [facility] [address] [place], [place] [id number] 11/23/2024 R Chris Philip Low back pain M54.5 [facility] [address] [place], [place] [id number] 01/10/2025 R Chris Philip Spinal stenosis of lumbar region with neurogenic claudication M48.062 [facility] [address] [place], [place] [id number] 02/01/2025 R Chris Philip Low back pain M54.5 [facility] [address] [place], [place] [id number] 04/04/2025 R Chris Philip [facility] [address] [place], [place] [id number] 04/25/2025 R Chris Philip Assessments Encounter Date Diagnosis (ICD Code) Assessment Notes Treatment Notes Treatment Clinical Notes Section Notes 05/03/2024 T2DM (type 2 diabetes mellitus) (ICD-10 - E11.9) discussed foods to avoid to prevent nausea and how to treat Nausea, diarrhea, and constipation; has taken Mounjaro previously and will try again at lowest dose 05/05/2024 Spinal stenosis of lumbar region with neurogenic claudication (ICD-10 - M48.062) 07/06/2024 Neck pain (ICD-10 - M54.2) suggested heat/cold application; NSAID,s prn 07/06/2024 Scalp cyst (ICD-10 - L72.9) to try shampoo and ABX for scalp sores 08/12/2024 Spinal stenosis of lumbar region with neurogenic claudication (ICD-10 - M48.062) 10/04/2024 T2DM (type 2 diabetes mellitus) (ICD-10 - E11.9) 10/04/2024 Fungal skin infection (ICD-10 - B36.9) disussed how to use shampoo 11/23/2024 Low back pain (ICD-10 - M54.5) 01/10/2025 Spinal stenosis of lumbar region with neurogenic claudication (ICD-10 - M48.062) 02/01/2025 Low back pain (ICD-10 - M54.5) 04/21/2025 Conjunctivitis (ICD-10 - H10.9) 04/21/2025 Cervical adenopathy (ICD-10 - R59.0) 04/21/2025 T2DM (type 2 diabetes mellitus) (ICD-10 - E11.9) 10/04/2024 Weight loss counseling, encounter for (ICD-10 - Z71.3) will increase x 4 weeks and increase again if tolerates; discussed dietary changes; will RTC in 3 months and will marisol fasting labs 07/06/2024 Headache syndrome (ICD-10 - G44.89) will try Nurtec for sudden onsret headaches; FU in one week 04/21/2025 Hypertension (ICD-10 - I10) Plan Of Treatment Pending Test Test Name Order Date Ultrasound : Carotids 04/16/2021 Ultrasound : Neck 04/26/2025 Next Appt Details Provider Name:Mike Perez et, 04/28/2025 09:45:00 AM, [address], [place], [id number], Insurance Providers Payer Name Payer Address Payer Phone Subscriber Number Group Number Insured Name Patient Relationship to Insured Coverage Start Date Coverage End Date [employer] ([employer]) [address] [address] [place] [id number] [phone] [id number] Self - patient is the insured Medications Administered Medication Instructions Date of Administration Dosage Notes depo medrol 80 mg 02/20/2011 60 mg Depo- Medrol 40 mg/ml 06/11/2005 1.5 mL Depo- Medrol 40 mg/ml 06/11/2011 Depo- Medrol 40 mg/ml 03/21/2012 1 mL Depo- Medrol 40 mg/ml 05/15/2012 1.5 mL Depo- Medrol 40 mg/ml 12/09/2015 1.5 mL Depo- Medrol 40 mg/ml 07/21/2019 1 mL Dexamethasone 02/06/2007 1 mL Dexamethasone 05/18/2007 1 mL Dexamethasone 01/26/2008 1 mL Dexamethasone 09/17/2012 1 mL Dexamethasone 10/18/2013 Dexamethasone 05/10/2014 1 mL Dexamethasone 09/06/2014 1 mL Dexamethasone 04/02/2016 1 mL Dexamethasone 01/11/2019 1 mL Medical (General) History Medical History History ICD Code Allergies Asthma Hypertension Diverticulosis Anxiety YOVANY Lumbar spinal stenosis with chronic pain Depression OA Hyperlipidemia 2nd digit on left foot-fract [facility] Chronic Meningitis Surgical History Surgery Date(Month/Year) Hysterectomy Cholecystectomy Knee Fissure Repair Excision of lumbar synovial cyst - Dr. Danielle shrestha 11/2006 RT CTS- Dr. Ewing 11/2006 Nasal 03/2008 Tooth Pulled 07/23/2011 Colon Resection for Tics Back- [facility] 09/13/2014 LT Thumb Joint Replacement 10/05/2019 C-scope/ Polyps/ [place] Hospitalization History Reason Date(Month/Year) Chronic M[facility]itis- [facility] 10/13/2020 Nausea, Headache- [facility] 2019 Bowel Infection- [facility] 04/2014 Sinus Infection- [facility] 07/15/20 12 Blood Pressure Elevated 12/2010
--- OUTSIDE RECORDS SUMMARY | 2025-04-27 13:00 | XMS_ITS | Continuity of Care Document ---
Author Organization [facility] Address [address] [place] [address] Phone Care Team Providers Care Account Liaison Name Role Phone Unavailable Primary Care Provider Unavailabl e Encounters Date Type Department Care Team Description 11/28/2020 Travel 11/28/2020 11:30 AM EST Office Visit [facility] [address] [place] [address] Francia Archer MD Hx of chronic meningitis (Primary Dx); [id number] condition Allergies Active Allergy Reactions Criticality Noted Date Comments House Dust Other (See Comments) 11/28/2020 Congestion, watery eyes Medications hydroCHLOROthiaz landy (HYDRODIURIL) 25 mg Oral Tablet Take 25 mg by mouth daily. Active cetirizine (ZYRTEC) 10 mg Oral Tablet Take 10 mg by mouth daily. Active DULoxetine (CYMBALTA) 20 mg Oral Capsule, Delayed Release(E.C.) Take 20 mg by mouth daily. Active losartan (COZAAR) 50 mg Oral Tablet Take 50 mg by mouth daily. Active Social History Smoking Status as of 04/27/2025 Tobacco Use Types Packs/Day Years Used Date Smoking Tobacco: Never Assessed Sex and Gender Information Value Date Recorded Sex Assigned at Not on file Legal Sex Female 12:29 PM EST Gender Identity Not on file Sexual Orientation Not on file Last Filed Vital Signs Vital Sign Reading Time Taken Comments Blood Pressure 144/86 11/28/2020 11:04 AM EST Pulse 86 11/28/2020 11:04 AM EST Temperature 36.4 C (97.6 F) 11/28/2020 11:04 AM EST Respiratory Rate - - Oxygen Saturation 96% 11/28/2020 11:04 AM EST Inhaled Oxygen Concentration - - Weight 99.3 kg (219 lb) 11/28/2020 11:04 AM EST Height - - Body Mass Index - - Plan of Treatment Not on file Visit Diagnoses Diagnosis Start Date Hx of chronic meningitis Personal history of infections of the central nervous system 11/28/2020 [id number] condition 11/28/2020
--- NOTE | 2025-04-27 13:03 | US_ITS ---
FINAL REPORT CLINICAL HISTORY: MASS PRESENT ON LT SIDE OF NECK FINDINGS: Directed ultrasound images of the left neck were obtained. There is a mixed cystic and solid mass accounting for the palpable abnormality inferior to the left parotid gland measuring 23 x 16 mm. It is unclear if this represents an exophytic lesion of the left parotid gland, congenital cyst, or necrotic lymph node. Recommend CT or MR to correlate. The right parotid and submandibular glands are normal. IMPRESSION: Mixed cystic and solid mass accounting for the palpable abnormality measures up to [address] or MR is recommended for correlation. Reviewed, Interpreted and Dictated by Cori Rosado MD Transcribed by Monae Michelle Authenticated and [facility]
== END 2025-04-27 23:59 | disposition home or self-care (01) ==
LOC: RAD 12:56
PROVIDERS: PCP Family Medicine; Visit Provider Family Medicine
DX: R22.1 Localized swelling, mass and lump, neck (principal)
CPT/HCPCS: 76536

== ENCOUNTER 2025-05-04 13:14 | Outpatient (POV) | payer MEDICARE, SELFPAY ==
--- OUTSIDE RECORDS SUMMARY | 2024-10-04 10:00 | XMS_ITS ---
Author Organization [facility] Address [address] [place] [id number] Care Team Providers Care Member Of Technical Staff Name Role Phone Mike Palacios Primary Care Provider [phone] Radha Salmon Unavailable [phone] Allergies Allergen (clinical drug ingredient) Drug/Non Drug [...] review and pick correct strength-formula tion from [employer] options. If intended option is not shown, discontinue and re-order from Quick Search* 10/23/2017 Active Vital Signs Blood pressure systolic 120 mm Hg 10/04/20 24 Blood pressure diastolic 90 mm Hg 024 Heart Rate 81 /min 10/04/2024 Height 66 in 10/04/2024 Weight 222.8 lbs 10/04/2024 BMI 35.96 kg/m2 10/04/2024 Encounters Encounter Location Date Provider Diagnosis [facility] [address] [place], [place] [phone] 10/04/2024 Radha Salmon Fungal skin infectio n [...] * NASIM VALDEZDOB:1955 ( 70 yo F)Acc No.[id number]:10/04/2024 Progress Notes Patient: LAUREN CHAHALNA Provider: ANDREW Hu:1955 A ge:69 Y S ex:Female Date:10/04/2024 Address:[address], [id number] Pcp:Mike Palacios Subjective: * Chief Complaints: * [...] Depression, OA, Hyperlipidemia, 2nd digit on left [id number]-zcwsvhif [facility], Chronic M[facility]. * Surgical History: H ysterectomy [...] B lood Pressure Elevated 12/2010, Sinus Infection- [place] [facility] 07/15/2012, Bowel Infection- [facility] 04/2014, Nausea, Headache- [facility] ER 2019, Chronic Meningitis- [facility] ER 10/13/2020. * Family History: F ather: [...] *Please review and pick correct strength-formulation from Breit[employer] Network[employer] options. If intended option is not shown, [...] *Please review and pick correct strength-formulation from CloudSwitchspan options. If intended option is not shown, [...] * Images: Billing Information: * Visit Code: 28446 Office Visit, Est Pt., Level 3. * Procedure Codes: 93259 PULSE OX. G2211 Complex e/m visit add on. * Electronic signature of Kylee Salmon APRN on 05/04/2025 at 01:17 PM EDT Sign off status: Pending * Provider: ANDREW Hu Date: 1 12/05/2023 Generated for Salvador foley/Ryann/Gerardo on: 0 05/04/2025 01:17 PM EDT History and Physical Notes * [...]
--- OUTSIDE RECORDS SUMMARY | 2025-04-21 10:15 | XMS_ITS ---
Author Organization [facility] Address [address] [place] [id number] Care Team Providers Care Limb Driver Name Role Phone Mike Palacios Primary Care Provider Radha Salmon Unavailable [phone] Allergies Allergen (clinical drug ingredient) Drug/Non Drug Allergy documented on EMR Reaction Allergy Type Onset Date Status MONSTER LOPEZ (uncoded) hives Allergy Active Medicinal cephalosporin and acting as antibacterial agent (FN) Cephalosporins anaphylaxis Drug Allergy Active REASON FOR VISIT knot below LT ear w/pain Medications Medication SIG (Take, Route, Frequency, Duration) Notes Start Date End Date Status DULoxetine HCl 60 mg TAKE ONE CAPSULE BY MOUTH EVERY DAY; Duration: 90 Active Metoprolol Succinate ER 50 mg TAKE ONE TABLET BY MOUTH EVERY DAY; Duration: 90 Active Rosuvastatin Calcium 20 mg take 1 tablet orally once a day; Duration: 90 days Active Amoxicillin-Pot Clavulanate 500-125 MG 1 tablet Orally every 12 hrs; Duration: 7 days 04/21/2025 Active Mounjaro 7.5 MG/0.5ML INJECT 7.5 MG (0.5 ML) SUBCUTANEOUSLY ONCE WEEKLY; Duration: 30 Active HYDROcodone-Acetaminophe n 5-325 MG 1 tab(s) orally once a day as needed 02/01/2025 Active Gabapentin 300 MG 1 cap(s) qam, 2 at bedtime orally; Duration: 30 day(s) 01/10/2025 Active Ofloxacin 0.3 % 1 drop Ophthalmic 4 times a day 04/21/2025 Active Losartan Potassium 100 MG 1 tab(s) orally at bedtime; Duration: 30 days Active Diflucan 150 MG 1 tablet Orally; Duration: 7 day(s) 10/04/2024 Active Nizoral 1 % 1 application Externally 3 x weekly; Duration: 30 days 07/06/2024 Active Cyclobenzaprine HCl 5 MG 1 tablet at bed time as needed Orally tid prn; Duration: 30 day(s) 07/06/2024 Active Nurtec 75 MG 1 tablet on the tongue and allow to dissolve Orally qd prn; Duration: 30 days 07/06/2024 Active Nizoral Psoriasis Shampoo/Cond 3 % 1 application as needed Externally Three times a Week; Duration: 30 days 10/04/2024 Active Ubrelvy 100 MG 1 tablet may take second dose at least 2 hours after first dose as needed Orally Once a day 07/08/2024 Active Doxycycline Hyclate 100 MG 1 tablet Orally Twice a day; Duration: 10 day(s) 07/06/2024 Active Esomeprazole Magnesium 20 MG 1 cap(s) orally once a day OTC Active EPINEPHrine 0.3 MG/0.3ML INJECT THE CONT ENTS OF 1 AUTO-INJECTOR INTRAMUSCULARLY ONCE NEEDED FOR ANAPHYLAXIS REACTION; Duration: 1 Active hydroCHLOROthiazide 25 MG 1 cap(s) orally once a day Active Aspirin Low Dose 81 MG 1 tab(s) chewed o nce a day Active Albuterol Sulfate HFA 108 (90 Base) MCG/ACT 1 puff(s) inhaled four times a day; Duration: 30 day(s) Active Trelegy Ellipta 100-62.5-25 MCG/ACT 1 puff(s) inhaled once a day; Duration: 30 days 01/27/2023 Active Xanax 0.5 MG 1 tab(s) orally two times a day as needed 01/27/2023 Active CareTouch CPAP & BIPAP Hose 1 AUTO TITRATING DIRECTED *Please review and pick correct strength-formula tion from Synaptic [employer] options. If intended option is not shown, discontinue and re-order from Quick Search* 10/23/2017 Active DIABETIC TESTING SUPPLIES TO TEST BID PRN *Please review for potential replacement for e-prescription and drug interaction check* Active CareTouch CPAP & BIPAP Hose 1 DIRECTED *Please review and pick correct strength-formula tion from [employer] options. If intended option is not shown, discontinue and re-order from Quick Search* 01/24/2022 Active ZyrTEC Allergy 10 MG 1 tab(s) orally onc e a day Active ProAir Digihaler 108 (90 Base) MCG/ACT 2 puff(s) inhaled every 6 hours; Duration: 30 day(s) 09/01/2020 Active Vital Signs Blood pressure systolic 130 mm Hg 04/21/20 25 Blood pressure diastolic 76 mm Hg 025 Heart Rate 83 /min 04/21/2025 Height 66 in 04/21/2025 Weight 214.2 lbs 04/21/2025 BMI 34.57 kg/m2 04/21/2025 Encounters Encounter Location Date Provider Diagnosis [facility] [address] [place] [id number] 04/21/2025 Mike Palacios Cervical adenopathy R59.0 ; Conjunctivitis H10.9 ; T2DM (type 2 diabetes mellitus) E11.9 and Hypertension I10 Assessments Encounter Date Diagnosis (ICD Code) Assessment Notes Treatment Notes Treatment Clinical Notes Section Notes 04/21/2025 Cervical adenopathy (ICD-10 - R59.0) 04/21/2025 Conjunctivitis (ICD-10 - H10.9) 04/21/2025 T2DM (type 2 diabetes mellitus) (ICD-10 - E11.9) 04/21/2025 Hypertension (ICD-10 - I10) Plan Of Treatment Medication Medication Name Sig Start Date Stop Date Notes Amoxicillin-Pot Clavulanate 500-125 MG 1 tablet Orally every 12 hrs; Duration: 7 days 04/21/2025 Ofloxacin 0.3 % 1 drop Ophthalmic 4 times a day 04/21/2025 Next Appt Details Follow Up: 1 Week, Reason: Progress Notes * NASIM MARTINEZDOB:1955 ( 70 yo F)Acc No.[id number]:04/21/2025 Progress Notes Patient: NASIM CHAHAL Provider: Mike Palacios M.D. :1955 A ge:69 Y S ex:Female Date:04/21/2025 Address:[facility] [address], [id number] Subjective: * Chief Complaints: * 1 . knot below LT ear w/pain. * HPI: E NT/respiratory: She first noticed a painful knot around the angle of her left jaw yesterday. It is a bit larger and more tender today. She has been having recent issues with sinus congestion and drainage. Denies ear pain. No sore throat. No pain with chewing. No fever. O pthalmology: She also complains of some redness and tenderness at the medial canthus of her right eye for about 2 weeks. Denies drainage. * ROS: D ERMATOLOGY: no R victor m. n o H noel. G ASTROENTEROLOGY: Positive for e ating and drinking well; has been eating sweets and hs had weight gain. n o N ausea. n o V omiting. n o D iarrhea. ? U ROLOGY: no D ifficulty urinating. n o B lood in urine. * Medical History: A llergies, Asthma, Hypertension, Diverticulosis, Anxiety, YOVANY, Lumbar spinal stenosis with chronic pain, Depression, OA, Hyperlipidemia, 2nd digit on left [facility], Chronic Meningitis. * Surgical History: H ysterectomy [...] B lood Pressure Elevated 12/2010, Sinus Infection- [place] [facility] 07/15/2012, Bowel Infection- [facility] 04/2014, Nausea, Headache- [facility] ER 2019, Chronic Meningitis- [facility] ER 10/13/2020. * Family History: F [...] *Please review and pick correct strength-formulation from Synaptic Digital options. If intended option is not shown, [...] *Please review and pick correct strength-formulation from Syn[employer] options. If intended option is not shown, [...] tab(s) chewed once a day , Taking hydroCHLOROthiazide 25 [...] needed Orally Once a day , Taking Nizoral Psoriasis Shampoo/Cond 3 % Shampoo 1 application as needed Externally Three times a Week , Taking Diflucan 150 MG Tablet 1 tablet Orally , Taking Gabapentin 300 MG Capsule 1 cap(s) qam, 2 at bedtime orally , Taking HYDROcodone-Acetaminophen 5-325 MG Tablet 1 tab(s) orally once a day as needed , Taking Losartan Potassium 100 MG Tablet 1 tab(s) orally at bedtime , Taking Mounjaro 7.5 MG/0.5ML Solution Auto-injector INJECT 7.5 MG (0.5 ML) SUBCUTANEOUSLY ONCE WEEKLY , Taking Metoprolol Succinate ER 50 mg Tablet Extended Release 24 Hour TAKE ONE TABLET BY MOUTH EVERY DAY , Taking DULoxetine HCl 60 mg Capsule Delayed Release Particles TAKE ONE CAPSULE BY MOUTH EVERY DAY , Taking Rosuvastatin Calcium 20 mg Tablet take 1 tablet orally once a day , Medication List reviewed and reconciled with the patient * Allergies: K ILZ, PAINT: hives, Cephalosporins: anaphylaxis - Allergy. Objective: * Vitals: W t: 214.2, Temp: 98.6, BP: 130/76, HR: 83, Nurse: thuy, Ht: 66, BMI:34.57. * Examination: E NT/Respiratory: General Appearance: N AD. E yes: T here appears to be a small fissure at the medial canthus of the right eye with some mild erythema. No induration or drainage.. E ars: a uditory canals normal bilaterally, TM's WNL. N ose : c ongested. O ral cavity : n o erythema or exudate seen on pharynx. N taiwo : S wollen and tender nodes/gland at the angle of the left jaw.. Assessment: * Assessment: 1. C ervical adenopathy - R59.0 (Primary) 2 . C onjunctivitis - H10.9 ? 3 . T 2DM (type 2 diabetes mellitus) - E11.9 4 . H ypertension - I10 Plan: * Treatment: 2. C onjunctivitis Start Ofloxacin Solution, 0.3 %, 1 drop, Ophthalmic, 4 times a day, 5 ml. * Procedure Codes: G 2211 Complex e/m visit add on, 1036F TOBACCO NON-USER, G8783 BP SCR PRFRM RCMDD DEFIND SCR INTVL, G8752 MOST RECENT SYSTOLIC BP < 140MM HG, G8754 MOST RECENT DIASTOLIC BP < 90MM HG * Preventive Medicine: Screening / Special Tests: M ammogram , negative. C olonoscopy?05/14/2022 Dr. Cardoso. * Follow Up: 1 Week * Images: Billing Information: * Visit Code: 61034 Office Visit, Est Pt., Level 3. * Procedure Codes: G2211 Complex e/m visit add on. 1036F TOBACCO NON-USER. G8783 BP SCR PRFRM RCMDD DEFIND SCR INTVL. G8752 MOST RECENT SYSTOLIC BP < 140MM HG. G8754 MOST RECENT DIASTOLIC BP < 90MM HG. * Electronic signature of Mike Palacios MD on 05/04/2025 at 01:17 PM EDT Sign off status: Pending * Provider: Mike Palacios M.D. Date: 0 04/21/2025 Generated for Printi ng/Fagunnarg/eTransmitting on: 0 05/04/2025 01:17 PM EDT History and Physical Notes * HPI (History of Present Illness) Category Sub-Category Detail Notes Category Not es ENT/respiratory She first no ticed a painful knot around the angle of her left jaw yesterday. It is a bit larger and more tender today. She has been having recent issues with sinus congestion and drainage. Denies ear pain. No sore throat. No pain with chewing. No fever. Examination Category Sub-Category Detail Notes Category Not es ENT/Respiratory Oral cavity : no erythema or exudate s een on pharynx Ears: auditory canals norm al bilaterally, TM's WNL Neck : Swollen and tender n odes/gland at the angle of the left jaw. General Appearance: NAD Nose : congested Eyes: There appears to be a small fissure at the medial canthus of the right eye with some mild erythema. No induration or drainage.
--- OUTSIDE RECORDS SUMMARY | 2025-04-28 05:45 | XMS_ITS ---
[facility] Organization [facility] Address [address] [place] [id number] Care Team Providers Care Body Sander Name Role Phone Mike Palacios Primary Care Provider [phone] Radha Salmon Unavailable [phone] Allergies Allergen (clinical drug ingredient) Drug/Non Drug Allergy documented on EMR Reaction Allergy Type Onset Date Status MONSTER LOPEZ (uncoded) hives Allergy Active Medicinal cephalosporin and acting as antibacterial agent (FN) Cephalosporins anaphylaxis Drug Allergy Active Results Component Value Reference Range Notes CBC Venipuncture (in house) Reviewed date:05/02/2025 08:35:36 PM Interpretation:Normal Performing Lab: Notes/Report: Normal wbc 8.2 3.5 - 10 lymph 31.3 15 - 50 mid 5.6 2 - 15 gran 63.1 35 - 80 rbc 4.52 3.5 - 5.5 hgb 13.9 11.5 - 16.5 hct 42.7 35 - 55 mcv 94.3 75 - 100 mch 30.7 25 - 35 mchc 32.5 31 - 38 platlet 364 100 - 400 Glycohemoglobin A1c (in hous e) Reviewed date:05/02/2025 08:35:36 PM Interpretation:5.5 Performing Lab: Notes/Report: 5.5 glycohemoglobin 5.5% 5 - 6.5 % P-Comprehensive Metabolic Pa michelet (CMP) Reviewed date:05/02/2025 08:35:36 PM Interpretation:gluc 101, alk phos 206, alt 51 Performing Lab: Notes/Report: CLIA: [id number] Dustin Sykes MD, [employer] [facility] [address], [place] [address] Test performed by [facility] Sodium 144 135-145 mmol/L Potassium 4.5 3.5-5.3 mmol/L Chloride 108 97-108 mmol/L CO2 24 20-32 mmol/L Glucose 101 65-99 mg/dL BUN 16 8-23 mg/dL Creatinine 0.82 0.50-1.00 mg/dL Calcium 9.3 8.6-10.4 mg/dL eGFR by Creatinine 76 >59 mL/min/1.73m2 Protein 6.8 6.0-8.3 g/dL Albumin 4.2 3.5-5.3 g/dL Alkaline Phosphatase 206 35-121 IU/L ALT (SGPT) 51 <5-47 IU/L AST (SGOT) 20 <5-40 IU/L Bilirubin, Total 0.3 <0.2-1.2 mg/dL A/G Ratio 1.6 1.1-2.5 P-Lipid Panel Reviewed date:05/02/2025 08:35:36 PM Interpretation:trigs 189, hdl 39 Performing Lab: Notes/Report: Test performed by [facility] [address] [place] [address] [address], [place] [address] Dustin Sykes MD, App[employer] CLIA: [id number] Cholesterol 165 <200 mg/dL Triglycerides 189 <150 mg/dL HDL Cholesterol 39 >39 mg/dL Cholesterol / HDL Ratio 4.23 0.00-4.44 Ratio Non-HDL Cholesterol 126 <130 mg/dL LDL Cholesterol (Calculation) 88 <130 mg/dL LDL Cholesterol Levels* Less than 100 mg/dL Optimal 100 to 129 mg/dL Near Optimal/ Above Optimal 130 to 159 mg/dL Borderline High 160 to 189 mg/dL High 190 mg/dL and above Very High * Categories as recommended by the 2004 ATPIII guidelines LDL/HDL Ratio 2.3 <3.3 Ratio LDL Cholesterol Patient History Test Date: 05/13/2023 LDL Results: 85 Units: mg/dL % Change: - Test Date: 10/13/2023 LDL Results: 59 Units: mg/dL % Change: -30% Test Date: 04/28/2025 LDL Results: 88 Units: mg/dL % Change: +49% Reason For Referral Reason low back pain; facet arthropathy Diagnosis 1 Facet arthropathy, l umbar (M47.816) Referral Organization [facility] Referring Provider First Name Mike Perez Referring Provider Last Name Philip Referring Provider Speciality [facility] humberto Referred Provider [facility] [place] Referred Provider Specialty Pain Managem ent General Notes Jeana Khan 2024 02:13:02 PM > faxed to [facility] Pain Management Referral Priority Routine REASON FOR VISIT check up with labs and Annual Wellness Visit, due for diabetic eye exam Medications Medication SIG (Take, Route, Frequency, Duration) Notes Start Date End Date Status EPINEPHrine 0.3 MG/0.3ML INJECT THE CONT ENTS OF 1 AUTO-INJECTOR INTRAMUSCULARLY ONCE NEEDED FOR ANAPHYLAXIS REACTION; Duration: 1 Active Esomeprazole Magnesium 20 MG 1 cap(s) orally once a day OTC Active Aspirin Low Dose 81 MG 1 tab(s) chewed o nce a day Active hydroCHLOROthiazide 25 MG 1 cap(s) orall y once a day Active Doxycycline Hyclate 100 MG 1 tablet Oral ly Twice a day; Duration: 10 day(s) 07/06/2024 Active Trelegy Ellipta 100-62.5-25 MCG/ACT 1 puff(s) inhaled once a day; Duration: 30 days 01/27/2023 Active Albuterol Sulfate HFA 108 (90 Base) MCG/ACT 1 puff(s) inhaled four times a day; Duration: 30 day(s) Active CareTouch CPAP & BIPAP Hose 1 AUTO TITRATING DIRECTED 10/23/2017 Active Xanax 0.5 MG 1 tab(s) orally two times a day as needed 01/27/2023 Active DIABETIC TESTING SUPPLIES TO TEST BID PRN Active Amoxicillin-Pot Clavulanate 500-125 MG 1 tablet Orally every 12 hrs; Duration: 7 days Active ProAir Digihaler 108 (90 Base) MCG/ACT 2 puff(s) inhaled every 6 hours; Duration: 30 day(s) 09/01/2020 Active ZyrTEC Allergy 10 MG 1 tab(s) orally onc e a day Active CareTouch CPAP & BIPAP Hose 1 DIRECTED 01/24/2022 Active HYDROcodone-Acetaminophen 5-325 MG 1 tab(s) orally once a day as needed 04/28/2025 Active Diflucan 150 MG 1 tablet Orally; Duration: 7 day(s) 10/04/2024 Not-Taking Rosuvastatin Calcium 20 mg take 1 tablet orally once a day; Duration: 90 days Active DULoxetine HCl 60 mg TAKE ONE CAPSULE BY MOUTH EVERY DAY; Duration: 90 Active Nizoral Psoriasis Shampoo/Cond 3 % 1 application as needed Externally Three times a Week; Duration: 30 days 10/04/2024 Active Gabapentin 300 MG 1 cap(s) qam, 2 at bedtime orally; Duration: 30 day(s) 01/10/2025 Active Losartan Potassium 100 MG 1 tab(s) orall y at bedtime; Duration: 30 days Active Mounjaro 7.5 MG/0.5ML INJECT 7.5 MG (0.5 ML) SUBCUTANEOUSLY ONCE WEEKLY; Duration: 30 Active Metoprolol Succinate ER 50 mg TAKE ONE TABLET BY MOUTH EVERY DAY; Duration: 90 Active Nurtec 75 MG 1 tablet on the tong ue and allow to dissolve Orally qd prn; Duration: 30 days 07/06/2024 Active Cyclobenzaprine HCl 5 MG 1 tablet at bed time as needed Orally tid prn; Duration: 30 day(s) 07/06/2024 Active Ubrelvy 100 MG 1 tablet may take second dose at least 2 hours after first dose as needed Orally Once a day 07/08/2024 Active Nizoral 1 % 1 application Externally 3 x weekly; Duration: 30 days 07/06/2024 Active Problems Problem Type SNOMED Code ICD Code Onset Dates Problem Status W/U Status Risk Notes Problem Facet arthropathy, lumbar (M47.816) Active confirmed Vital Signs Blood pressure systolic 134 mm Hg 04/28/20 25 Blood pressure diastolic 94 mm Hg 025 Heart Rate 85 /min 04/28/2025 Height 66 in 04/28/2025 Weight 215.8 lbs 04/28/2025 BMI 34.83 kg/m2 04/28/2025 Encounters Encounter Location Date Provider Diagnosis [facility] [address] [place] [id number] 04/28/2025 Mike Palacios Adult general medica l examination Z00.00 ; Cervical adenopathy R59.0 ; T2DM (type 2 diabetes mellitus) E11.9 ; Hypertension I10 ; Hyperlipidemia E78.5 and Facet arthropathy, lumbar M47.816 Assessments Encounter Date Diagnosis (ICD Code) Assessment Notes Treatment Notes Treatment Clinical Notes Section Notes 04/28/2025 Adult general medical examination (ICD-10 - Z00.00) Patient instructed to return to office Annually for Annual Wellness Visits to include annual screenings of Pain assessment, Functional Ability assessment, Cognitive Ability assessment, Fall Risk assessment, Depression screening and Bladder control screening. 04/28/2025 Cervical adenopathy (ICD-10 - R59.0) Ultrasound of left neck shows a mixed cystic and solid lesion below the left parotid gland but ultrasound cannot discern with certainty of the origin of the lesion. Symptoms have improved considerably with the antibiotics. Will continue with a second round of antibiotics but if the lesion does not completely resolve, we will proceed with CT scan. 04/28/2025 T2DM (type 2 diabetes mellitus) (ICD-10 - E11.9) 04/28/2025 Hypertension (ICD-10 - I10) 04/28/2025 Hyperlipidemia (ICD-10 - E78.5) 04/28/2025 Facet arthropathy, lumbar (ICD-10 - M47.816) Plan Of Treatment Medication Medication Name Sig Start Date Stop Date Notes Amoxicillin-Pot Clavulanate 500-125 MG 1 tablet Orally every 12 hrs; Duration: 7 days HYDROcodone-Acetaminophen 5- 325 MG 1 tab(s) orally once a day as needed 04/28/2025 Treatment Notes Assessment Notes Adult general medical examination Patien t instructed to return to office Annually for Annual Wellness Visits to include annual screenings of Pain assessment, Functional Ability assessment, Cognitive Ability assessment, Fall Risk assessment, Depression screening and Bladder control screening. Cervical adenopathy Ultrasound of left n taiwo shows a mixed cystic and solid lesion below the left parotid gland but ultrasound cannot discern with certainty of the origin of the lesion. Symptoms have improved considerably with the antibiotics. Will continue with a second round of antibiotics but if the lesion does not completely resolve, we will proceed with CT scan. Pending Test Test Name Order Date P-Microalbumin/Creatinine, Random Urine Sample 04/28/2025 Referrals Referral Date Details 04/29/2025 04/29/2025, low back pain; facet arthropathy, [facility] Next Appt Details Follow Up: 6 Months, Reason: Progress Notes * NASIM VALDEZDOB:1955 ( 70 yo F)Acc No.[id number]:04/28/2025 Annual Wellness Visit Patient: NASIM CHAHAL Provider: Mike Palacios M.D. :1955 A ge:70 Y S ex:Female Date:04/28/2025 Address:[facility] [id number] Subjective: * Chief Complaints: * 1 . check up with labs and Annual Wellness Visit. 2. Due for diabetic eye exam. * HPI: H PI: Patient is here today for a check up with labs and a Medicare Annual Wellness Visit. Pt is fasting today. Pt sts that she has no new concerns or complaints. Zain dietz back: She has a longstanding history of low back pain related to degenerative changes. Dr. Mathew has recommended pain management in the past but she has been reluctant to pursue. However over the past few months her pain has become more debilitating and limits her activity and she would now like to be referred for pain management evaluation. E NT/respiratory: Further to office visit last week, the swollen gland on her left neck is markedly decreased in size but not completely resolved. Pain is improved. * ROS: D ERMATOLOGY: no R victor m. n o H noel. G ASTROENTEROLOGY: no N ausea. n o V omiting. n o D iarrhea.? O PTHALMOLOGY: Negative for d enies vision issues. U ROLOGY: no D ifficulty urinating. n o B lood in urine. * Medical History: A llergies, Asthma, Hypertension, Diverticulosis, Anxiety, YOVANY, Lumbar spinal stenosis with chronic pain, Depression, OA, Hyperlipidemia, 2nd digit on left [id number], Chronic Meningitis. * Surgical History: H ysterectomy [...] B lood Pressure Elevated 12/2010, Sinus Infection- [facility] 07/15/2012, Bowel Infection- [facility] 04/2014, Nausea, Headache- [facility] ER 2019, Chronic Meningitis- [facility] ER 10/13/2020. * Family History: F [...] Hose MACHINE AND SUPPLIES 1 DIRECTED , Taking Trelegy Ellipta 100-62.5-25 MCG/ACT Aerosol Powder Breath Activated 1 puff(s) inhaled once a day , Taking Albuterol Sulfate HFA 108 (90 Base) MCG/ACT Aerosol Solution 1 puff(s) inhaled four times a day , Taking CareTouch CPAP & BIPAP Hose MACHINE AND SUPPLIES 1 AUTO TITRATING DIRECTED , Taking Xanax 0.5 MG Tablet 1 tab(s) orally two times a day as needed , Taking DIABETIC TESTING SUPPLIES TO TEST BID PRN , Taking EPINEPHrine 0.3 MG/0.3ML Solution Auto-injector INJECT [...] Externally Three times a Week , Taking Gabapentin 300 MG Capsule 1 [...] 1 tablet orally once a day , Not-Taking Diflucan 150 MG Tablet 1 tablet Orally , Discontinued Ofloxacin 0.3 % Solution 1 drop Ophthalmic 4 times a day , Discontinued Amoxicillin-Pot Clavulanate 500-125 MG Tablet 1 tablet Orally every 12 hrs , Medication List reviewed and reconciled with the patient * Allergies: K ILZ, PAINT: hives, Cephalosporins: anaphylaxis - Allergy. Objective: * Vitals: W t: 215.8, Temp: 98.3, BP: 134/94, HR: 85, Nurse: JERARDO, Ht: 66, BMI:34.83. * Examination: G eneral Examination: General Appearance: N AD. O ral cavity: n o lesions, mucosa moist and WNL, no erythema. N taiwo: P alpable, mildly tender gland below the angle of the left jaw that is decreased in size compared to last week.. H eart: R SR. L ungs: clear to auscultation. E xtremities: n o leg edema. * Physical Examination: G ENERAL: Pain Assessment: P ain level: 7, on a scale of 0-10 (with 10 being extreme pain). F unctional Status Assessment: P atient response to question of how often physical health interferes with daily activities: Occasionally. Able to perform ADLs-including meal preparation, grocery shopping, housework, laundry, taking medications or handling finances. Cognitive Status: alert and oriented. Ambulation Status: Fully ambulatory. F all Risk Assessment: I ndependant in ambulation, adequate lighting in home. Patient has fallen or had trouble walking within the past 12 months. D epression Screening: D enies depressed mood or anxiety. Describes emotional health as: calm. B ladder Control Screening: s mall problems.? Assessment: * Assessment: 1. A gabet general medical examination - Z00.00 (Primary) 2 . C ervical adenopathy - R59.0 3 . T 2DM (type 2 diabetes mellitus) - E11.9 4 .?Hypertension - I10 5 . H yperlipidemia - E78.5 6 . F acet arthropathy, lumbar - M47.816 Plan: * Treatment: Value Reference Range w bc 8.2 3.5 - 10 * l ymph 31.3 15 - 50 * m id 5.6 2 - 15 * g ran 63.1 35 - 80 * r bc 4.52 3.5 - 5.5 * h gb 13.9 11.5 - 16.5 * h ct 42.7 35 - 55 * m cv 94.3 75 - 100 * m ch 30.7 25 - 35 * m chc 32.5 31 - 38 * p latlet 364 100 - 400 * Muriel Burton 04/28/2025 02: 08:29 PM EDT > Mike Palacios 05/02/2025 08:35:23 PM EDT > See phone encounter Notes:Patient instructed to return to office Annually for Annual Wellness Visits to include annual screenings of Pain assessment, Functional Ability assessment, Cognitive Ability assessment, Fall Risk assessment, Depression screening and Bladder control screening.??2.?Cervical adenopathy? Start Amoxicillin-Pot Clavulanate Tablet, 500-125 MG, 1 tablet, Orally, every 12 hrs, 7 days, 14. ? Notes: Ultrasound of left neck shows a mixed cystic and solid lesion below the left parotid gland but ultrasound cannot discern with certainty of the origin of the lesion. Symptoms have improved considerably with the antibiotics. Will continue with a second round of antibiotics but if the lesion does not completely resolve, we will proceed with CT scan.??3.?T2DM (type 2 diabetes mellitus)?LAB: P-Microalbumin/Creatinine, Random Urine Sample ?LAB: Glycohemoglobin A1c (in house) (Collection Date & Time - 04/28/2025)? 5.5* Value Reference Range g lycohemoglobin 5.5% 5 - 6.5 % * Muriel Burton 04/28/2025 02: 05:57 PM EDT > Mike Palacios 05/02/2025 08:35:23 PM EDT > See phone encounter 4.?Hypertension?LAB: P-Comprehensive Metabolic Panel (CMP) (Collection Date & Time - 04/28/2025 09:32 AM)?gluc 101, alk phos 206, alt 51* Value Reference Range A /G Ratio 1.6 1.1-2.5 - * A lbumin 4.2 3.5-5.3 - g/dL * A lkaline Phosphatase 206 H 35-121 - IU/L * A LT (SGPT) 51 H <5-47 - IU/L * A ST (SGOT) 20 <5-40 - IU/L * B ilirubin, Total 0.3 <0.2-1.2 - mg/dL * B UN 16 8-23 - mg/dL * C alcium 9.3 8.6-10.4 - mg/dL * C hloride 108 97-108 - mmol/L * C O2 24 20-32 - mmol/L * C reatinine 0.82 0.50-1.00 - mg/dL * G lucose 101 H 65-99 - mg/dL * P otassium 4.5 3.5-5.3 - mmol/L * S odium 144 135-145 - mmol/L * P rotein 6.8 6.0-8.3 - g/dL * e GFR by Creatinine 76 >59 - mL/min/1.73m2 * Mike Palacios 05/02/2025 08:35:23 PM EDT > See phone encounter 5.?Hyperlipidemia?LAB: P-Lipid Panel (Collection Date & Time - 04/28/2025 09:32 AM)?trigs 189, hdl 39* Value Reference Range C holesterol / HDL Ratio 4.23 0.00-4.44 - Ratio * C holesterol 165 <200 - mg/dL * H DL Cholesterol 39 L >39 - mg/dL * L DL Cholesterol (Calculation) 88 <130 - mg/d L * L DL/HDL Ratio 2.3 <3.3 - Ratio * N on-HDL Cholesterol 126 <130 - mg/dL * T riglycerides 189 H <150 - mg/dL * Mike Palacios 05/02/2025 08:35:23 PM EDT > See phone encounter 6.?Facet arthropathy, lumbar? Referral To:[facility]??Pain Management ?Reason:low backpain; facet arthropathy 7.?Others? Refill HYDROcodone-Acetaminophen Tablet, 5-325 MG, 1 tab(s), orally, once a day as needed, 30, Refills 0.?? * Procedure Codes: G 0439 ANNUAL WELLNESS VST; PPS SUBSQT VST, Modifiers: 25 , G2211 Complex [place], [address] GLYCATED HEMOGLOBIN TEST, Modifiers: QW , 1090F PRES/ABSN URINE INCON ASSESS, 3288F FALL RISK ASSESSMENT DOCD, 1170F FXNL STATUS ASSESSED, 1126F AMNT PAIN NOTED NONE PRSNT, 1159F MED LIST DOCD IN RCRD, 1003F LEVEL OF ACTIVITY ASSESS, 1036F TOBACCO NON-USER, 3017F COLORECTAL CA SCREEN DOC REV, G9899 Scrn nba perf rslts doc, 18731 CBC WITH AUTO DIFF * Preventive Medicine: Counseling: E motional health: P atient encouraged to try connecting with family or friends to boost mood. B ladder control: M ethods of controlling or managing leakage of urine discussed. E xercise: P atient advised to start, increase or maintain level of exercise/physical activity. I njury prevention: F all prevention discussed. Discussed need for cane/walker. Potential trip hazards discussed. Immunizations: P neumococcal r ecommended. Screening / Special Tests: M ammogram R ecent history: 12/15/2024, negative.?Colonoscopy R ecent history: 05/15/2022, polyps, diverticulosis, hemorrhoids. B one mineral Density R ecent history: 02/12/2022, normal, recommended. D iabetic Retinal Eye Exam R ecent history:, recommended today. N ephrology History R ecent history:, GFR and urine M/A ordered today. * Follow Up: 6 Months * Images: Billing Information: * Visit Code: 49273 Office Visit, Est Pt., Level 3. * Procedure Codes: G0439 ANNUAL WELLNESS VST; PPS SUBSQT VST. Modifiers: G221 Complex e/[place]. [address] GLYCATED HEMOGLOBIN TEST. Modifiers: QW 1090F PRES/ABSN URINE INCON ASSESS. 3288F FALL RISK ASSESSMENT DOCD. 1170F FXNL STATUS ASSESSED. 1126F AMNT PAIN NOTED NONE PRSNT. 1159F MED LIST DOCD IN RCRD. 1003F LEVEL OF ACTIVITY ASSESS. 1036F TOBACCO NON-USER. 3017F COLORECTAL CA SCREEN DOC REV. G9899 Scrn nba perf [place]slts [place]. 59769 CBC WITH AUTO DIFF. * Electronic signature of Mike Palacios MD on 05/04/2025 at 01:17 PM EDT Sign off status: Pending * Provider: Mike Palacios M.D. Date: 0 04/28/2025 Generated for Salvador foley/Ryann/Gerardo on: 0 05/04/2025 01:17 PM EDT History and Physical Notes * HPI (History of Present Illness) Category Sub-Category Detail Notes Category Not es ENT/respiratory Further to o ffice visit last week, the swollen gland on her left neck is markedly decreased in size but not completely resolved. Pain is improved. HPI Patient is here today for a check up with labs and a Medicare Annual Wellness Visit. Pt is fasting today. Pt sts that she has no new concerns or complaints Physical Examination Category Sub-Category Detail Notes Section Note s GENERAL Pain Assessment: Pain level: 7, on a scale of 0-10 (with 10 being extreme pain) Functional Status Assessment: Patient re sponse to question of how often physical health interferes with daily activities: Occasionally. Able to perform ADLs-including meal preparation, grocery shopping, housework, laundry, taking medications or handling finances.Cognitive Status: alert and oriented.Ambulation Status: Fully ambulatory Fall Risk Assessment: Independant in amb ulation, adequate lighting in home. Patient has fallen or had trouble walking within the past 12 months Depression Screening: Denies depressed m ood or anxiety. Describes emotional health as: calm Bladder Control Screening: small problem s Examination Category Sub-Category Detail Notes Category Not es General Examination Heart: RSR Lungs: clear to auscultatio n Extremities: no leg edema General Appearance: NAD Neck: Palpable, mildly ten cydney gland below the angle of the left jaw that is decreased in size compared to last week. Oral cavity: no lesions, mucosa m oist and WNL, no erythema Consultation Request Notes Referral Date Referring Provider Referred Provider Not es 04/29/2025 Mike Palacios Anjum low back p ain; facet arthropathy
--- NOTE | 2025-05-04 13:16 | EXP.PAIN.OV ---
HPI Data of Consult Patient: new to practice Consult date: 05/04/25 Requesting Physician: Noelle Miller APRN Primary Care Provider: Peña Palacios MD Reason for consult: Low back pain, bilateral hip pain, upper thigh pain History of present illness: Ms. Martinez is a 70 year old female who presents today as a new patient. She is a referral from Dr. Paalcios's office. Today she rates her pain an 8 out of 10. Patient states she has chronic pain throughout her low back and hips that does go into her upper thighs ending going on for years. Patient denies any surgery. She did previously see our office in the past and states that she did get some injections and that they really did seem to help. Patient states the pain is interfering with her ability perform activities of daily living such as cooking and cleaning. Patient states that she would like to see about doing additional interventions. She states it is affecting her sleeping and all activities. Patient states she cannot [facility] without having to stop and take a break. Patient does also state that prolonged sitting or standing or stairs cause significant disability. Patient has tried oral medication, heat, topicals, physical therapy and chiropractor therapy with only some help. Patient has also continued at home stretching exercise for longer than 12 weeks. Patient states really the only thing that seems to make her pain better is if she lays flat. Patient does feel like some of her pain may be related to her weight.Patient is prescribed Morning Sun 5 mg daily and gabapentin 300 mg 3 times a day from Dr. Palacios's office. Her Kurtis has been reviewed and is appropriate. Pain at rest (0-10 scale): 8 Has patient had previous pain injection?: No Conservative treatment options previously tried: Home exercise plan (Longer than 12 weeks), Physical Therapy (Some improvement) and Chiropractor (Some improvement) cc:: CC: Noelle Miller APRN [facility] Disclaimer: The information contained in this section may have been updated after the patient was seen, as this information can be updated by other users. Medical History (Updated 05/04/25 @ 13:44 by Noelle Miller APRN) Depression Diabetes mellitus, type 2 Asthma Hyperlipidemia Hypertension Surgical History History of tubal ligation History of hysterectomy History of cholecystectomy Family History (Updated 05/04/25 @ 13:34 by Guadalupe Xiong RN) Other Unknown family medical history Social History (Updated 05/04/25 @ 13:35 by Guadalupe Xiong RN) Smoking Status: Never smoker alcohol intake: never substance use type: denies use current occupational status: retired Travel in the last 8 weeks?: None household members: spouse housing: house current occupation: [employer] current occupational exposures/hazards: No caffeine: Yes Review of Systems Review of Systems Review of systems:: pertinent systems reviewed and negative unless documented below Review of systems (narrative): Review of Systems: General: No recent weight changes, no fever, no sleep disturbances Respiratory: No cough, no shortness of air, no recurring pulmonary infections Cardiovascular/peripheral vascular: No chest pain, no palpitations, no edema, no shortness of breath Gastrointestinal: No new onset incontinence, normal bowel movements reported Genitourinary: No new onset incontinence Musculoskeletal: Low back pain, bilateral hip pain Psychiatric: [Normal mood/affect] Neurological: [Denies weakness in extremities], [denies balance issues] Meds Home Medications and Allergies Home Medications ?Medication ?Instructions ?Recorded ?Confirmed ?Type duloxetine 30 mg capsule,delayed 30 mg PO BID Anxiety 03/17/18 05/04/25 History release gabapentin 300 mg capsule 600 mg PO HS Pain 01/16/22 05/04/25 History cetirizine 10 mg tablet (Zyrtec) 10 mg PO DAILY 02/18/24 05/04/25 History hydrochlorothiazide 25 mg tablet 25 mg PO DAILY 02/18/24 05/04/25 History losartan 100 mg tablet 100 mg PO DAILY 02/18/24 05/04/25 History metoprolol succinate 50 mg 50 mg PO DAILY 02/18/24 05/04/25 History tablet,extended release 24 hr omeprazole 10 mg capsule,delayed 10 mg PO DAILY 02/18/24 05/04/25 History release ondansetron 4 mg disintegrating 4 mg PO Q8H PRN nausea and 02/18/24 05/04/25 Rx tablet vomiting #12 tabs rosuvastatin 20 mg tablet 20 mg PO HS 02/18/24 05/04/25 History semaglutide 2 mg/dose (8 mg/3 mL) 2 mg SQ WEEKLY 02/18/24 05/04/25 History subcutaneous pen injector (Ozempic) New Prescriptions to Start Prescriptions: Allergies Allergy/AdvReac Type Severity Reaction Status Date / Time ceftriaxone (From Rocephin) Allergy Intermediate Anaphylaxis Verified 01/23/22 08:32 suture Allergy Mild Redness of Verified 01/23/22 08:32 Skin Objective Narrative: Physical Exam: General: Alert and oriented x3, no acute distress, pleasant and cooperative Lungs: Respirations even and unlabored, symmetrical chest expansion Eyes: PERRL Musculoskeletal: Flexion and extension of lumbar [spine] somewhat guarded secondary to pain, [antalgic gait noted] point tenderness along bilateral SIs with positive bilateral Cristian's, Juan's, Gaenslen's, compression and distraction exam Neurological: Speech clear, no gross sensory deficit Additional findings Additional findings: There is normal alignment. The spinal cord ends the T12-L1 level. T12-L1: Unremarkable. L1-L2: Mild degenerative disc disease. Small anterior osteophytes. L2-L3: Mild degenerative disc disease with mild facet and ligamentum hypertrophy with mild left lateral recess narrowing. L3-L4: Mild facet ligamentum hypertrophy. L4-5: Facet and ligamentum hypertrophic change with left foraminal narrowing and minimal bulging disc. Prominent facet hypertrophic changes are present on the left at this level. There appears to be a small laminotomy defect on the left. There is some clumping of the nerve roots on the left at this level which may represent postsurgical change and can be seen also with arachnoiditis. There is some minimal enhancement in this region as well. L5-S1: Facet and ligamentum hypertrophic changes.. No canal stenosis or extruded herniated disc apparent. IMPRESSION: 1. Mild lumbar spondylosis as detailed above. Please see above for detailed description at each level. 2. At L4-5, there is facet and ligamentum hypertrophic change with left foraminal narrowing and minimal bulging disc. Prominent facet hypertrophic changes are present on the left at this level. There appears to be a small laminotomy defect on the left. There is some clumping of the nerve roots on the left at this level which may represent postsurgical change and can be seen also with arachnoiditis. There is some minimal enhancement in this region as well which may be related to some mild epidural fibrosis.. 3. No extruded herniated disc or bony canal stenosis. Dictated by: Junior Olivo MD 01/14/2021 10:55 Junior Oliov MD in [place] 01/14/2021 10:55 Assessment and Plan *Assessment and plan (1) Bilateral sacroiliitis: Status: Acute Category: Medical Code(s): M46.1 - Sacroiliitis, not elsewhere classified (2) Bilateral hip pain: Status: Acute Category: Medical Code(s): M25.551 - Pain in right hip; M25.552 - Pain in left hip (3) Chronic back pain: Status: Acute Category: Medical Code(s): M54.9 - Dorsalgia, unspecified; G89.29 - Other chronic pain Plan Patient is experiencing worsening pain along the low back and bilateral hips. They did have limited range of motion of the lumbar spine along with point tenderness along bilateral SI joints and a positive bilateral Cristian's, Juan's, Gaenslen's, compression and distraction exam. I did discuss with the patient that I do believe they would benefit from bilateral SI injections. Risk and benefits were discussed with the patient and they would like to proceed forward with this option. Patient has tried and failed conservative therapy. Patient has been actively doing conservative treatment including oral medication, heat and ice, topicals, at home exercising and stretching for longer than 12 weeks. Patient has also had physical therapy and chiropractor therapy with only minimal improvement. Patient is having to adjust their activity based off the increased pain resulting in activity modification. I do believe the patient would benefit from SI injection. If the patient does get significant relief following these injections we will see in the future if they would benefit from a second set with the possibility of SI fusion at a later date. This will be a diagnostic injection with less than 1 mL solution to be injected. Patient will be scheduled for bilateral SI injections under fluoroscopy. Will also order the patient a compounded cream Patient has been instructed to contact the clinic with any concerns before the next appointment. Dr. Park has reviewed this note and agrees with this plan of care. This note was dictated using voice recognition software and make contain errors or omissions. All injections are used with Lidocaine or Bupivacaine and dexamethasone unless diagnostic in which no steroids were injected.
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
--- OUTSIDE RECORDS SUMMARY | 2025-05-04 13:18 | XMS_ITS | Patient Health Record ---
[facility] [address] [place] [id number] Care Team Providers Care Protective Officer Name Role Phone Mike Palacios Primary Care Provider Radha Salmon Unavailable [phone] Danielle Montalvo Unavailable [phone] Ryan Johnson Unavailable [phone] Allergies Allergen (clinical drug ingredient) Drug/Non Drug Allergy documented on EMR Reaction Allergy Type Onset Date Status COREY LOPEZT (uncoded) hives Allergy Active Medicinal cephalosporin and [...] 51 Performing Lab: Notes/Report: Test performed by [facility] [address] [place] [address] [address], [place] [address] Dustin Sykes MD, Bioinformatics Software Engineer CLIA: [id number] Sodium 144 135-145 mmol/L Potassium 4.5 3.5-5.3 [...] 39 Performing Lab: Notes/Report: Test performed by [facility] [address] [place] [address] , [address], [place] [address] Dustin Sykes MD, Bioinformatics Software Engineer CLIA: [id number] Cholesterol 165 <200 mg/dL Triglycerides 189 <150 [...] Results: 85 Units: mg/dL % Change: - ------- Test Date: 10/13/2023 LDL Results: 59 Units: mg/dL % Change: -30% ------- Test Date: 04/28/2025 LDL Results: 88 Units: mg/dL % Change: +49% CBC Fingerstick (in house) Reviewed date:07/06/2024 01:31:04 [...] Negative, annual f/u result Negative, annual f/u Ultrasound : Neck Reviewed date:05/01/2025 10:20:09 AM Interpretation: Performing Lab: Notes/Report: Medications Medication SIG (Take, Route, Frequency, Duration) Notes Start Date End Date Status Trelegy Ellipta 100-62.5-25 MCG/ACT 1 puff(s) inhaled once a day; Duration: 30 days 01/27/2023 Active Amoxicillin-Pot Clavulanate 500-125 MG 1 tablet Orally every 12 hrs; Duration: 7 days Active Albuterol Sulfate HFA 108 (90 Base) MCG/ACT 1 puff(s) inhaled four times a day; Duration: 30 day(s) Active Diflucan 150 MG 1 tablet Orally; Duration: 7 day(s) 10/04/2024 Not-Taking CareTouch CPAP & BIPAP Hose 1 AUTO TITRATING DIRECTED 10/23/2017 Active Xanax 0.5 MG 1 tab(s) orally two times a day as needed 01/27/2023 Active DIABETIC TESTING SUPPLIES TO TEST BID PRN Active EPINEPHrine 0.3 MG/0.3ML INJECT THE CONT ENTS OF 1 AUTO-INJECTOR INTRAMUSCULARLY ONCE NEEDED FOR ANAPHYLAXIS REACTION; Duration: 1 Active Esomeprazole Magnesium 20 MG 1 cap(s) orally once a day OTC Active Aspirin Low Dose 81 MG 1 tab(s) chewed o nce a day Active HYDROcodone-Acetaminophen 5-325 MG 1 tab(s) orally once a day as needed 04/28/2025 Active Rosuvastatin Calcium 20 mg take 1 tablet orally once a day; Duration: 90 days Active DULoxetine HCl 60 mg TAKE ONE CAPSULE BY MOUTH EVERY DAY; Duration: 90 Active ProAir Digihaler 108 (90 Base) MCG/ACT 2 puff(s) inhaled every 6 hours; Duration: 30 day(s) 09/01/2020 Active ZyrTEC Allergy 10 MG 1 tab(s) orally onc e a day Active Metoprolol Succinate ER 50 mg TAKE ONE TABLET BY MOUTH EVERY DAY; Duration: 90 Active CareTouch CPAP & BIPAP Hose 1 DIRECTED 01/24/2022 Active Nurtec 75 MG 1 tablet on [...] ML) SUBCUTANEOUSLY ONCE WEEKLY; Duration: 30 Active Nizoral 1 % 1 application Externally 3 x weekly; Duration: 30 days 07/06/2024 Active hydroCHLOROthiazide 25 MG 1 cap(s) orall y once a day Active Doxycycline Hyclate 100 MG 1 tablet Oral ly Twice a day; Duration: 10 day(s) 07/06/2024 Active Immunizations Vaccine Route Administration Date Status Comme nts xFlu shot-36 months and older IM Intramuscular 09/09/2008 Administered Tetanus Tdap-Adacel (over 7yrs) IM Intramuscular 06/06/2010 Administered Shingrix IM Intramuscular 11/23/2018 Administered Prevnar (PCV13) IM Intramuscular 02/04/2020 Administered PNEUMOVAX 23 VACCINE IM Intramuscular 10/13/2023 Administe red Hepatitis A (adult) IM Intramuscular 11/23/2018 Administer ed Fluzone PF Quad (6-35 months) Unknown 08/28/2022 Administered DT, 7 YEARS OR OLDER Unknown 01/04/1997 Administered COVID 19 Pfizer Unknown 10/10/2021 Administered COVID 19 Xenia Unknown 02/10/2021 Administered COVID 19 Xenia Unknown 02/10/2021 Administered Problems Problem Type SNOMED Code ICD Code Onset Dates Problem Status W/U Status Risk Notes Problem Gastroesophageal reflux disease (507789339) GERD (gastroesophageal reflux disease) (K21.9) Active confirmed Problem Hyperglycemia (60569211) Hyperglycemia (R73.9) Active confirmed Problem Hypertension (07844298) HTN (hypertension) (I10) Active confirmed Problem Hyperlipidemia (16524980) Hyperlipidemia (E78.5) Active confirmed Problem Arthropathy of lumbar facet joint (disorder) (437155251) Facet arthropathy, lumbar (M47.816) Active confirmed Problem Anxiety (31751185) Anxiety (F41.9) Active confi rmed Problem Hypertension (29852698) Hypertension (I10) Active confirmed Problem Environmental allergy (633508772) Environmental allergies (Z91.048) Active confirmed Problem Obstructive sleep apnea (65356430) Obstructive sleep apnea (G47.33) Active confirmed Problem Chronic meningitis (85126666) Chronic meningitis (G03.1) Active confirmed Problem Chronic pain syndrome (398292405) Chronic pain syndrome (G89.4) Active confirmed Problem Chronic maxillary sinusitis (33248212) Chronic maxillary sinusitis (J32.0) Active confirmed Problem Depression (445911989) Depression (F32.9) Active confirmed Problem Chronic bronchitis (77185175) Chronic bronchitis (J42) Active confirmed Problem Type II diabetes mellitus without complication (200323415) T2DM (type 2 diabetes mellitus) (E11.9) Active confirmed Problem Headache (96009377) Headache syn drome (G44.89) Active confirmed Problem Osteoarthritis of knee (218279849) Primary osteoarthritis of both knees (M17.0) Active confirmed Problem Carpal tunnel syndrome of left wrist (766245158147378) Carpal tunnel syndrome of left wrist (G56.02) Active confirmed Problem Body mass index 30.00 to 34.99 (261235759098396) BMI 31.0-31.9,adult (Z68.31) Active confirmed Problem Arthropathy (206546126) Arthritis involving multiple sites (M12.9) Active confirmed Problem Vitamin D deficiency (73955202) Low vitamin D level (E55.9) Active confirmed Problem Chronic mixed headache syndrome (09090634) Chronic mixed headache syndrome (G44.89) Active confirmed Problem Allergic reaction to bee sting (095045843) Bee sting allergy (Z91.030) Active confirmed Vital Signs Heart Rate 85 /min 04/28/2025 Blood pressure diastolic 94 mm Hg 04/28/2025 Height 66 in 04/28/2025 Blood pressure systolic 134 mm Hg 04/28/2025 Weight 215.8 lbs 04/28/2025 BMI 34.83 kg/m2 04/28/2025 Encounters Encounter Location Date Provider Diagnosis [facility] [address] [place] [id number] 07/06/2024 Radha Salmon Neck pain M54.2 ; Sc alp cyst L72.9 and Headache syndrome G44.89 [facility] [address] [place] [id number] 10/04/2024 Radha Salmon Fungal skin infectio n B36.9 ; T2DM (type 2 diabetes mellitus) E11.9 and Weight loss counseling, encounter for Z71.3 [facility] [address] [place] [id number] 04/21/2025 R Chris Palacios Cervical adenopathy R59.0 ; Conjunctivitis H10.9 ; T2DM (type 2 diabetes mellitus) E11.9 and Hypertension I10 [facility] [address] [place], [place] [id number] 04/28/2025 R Chris Palacios Adult general medica l examination Z00.00 ; Cervical adenopathy R59.0 ; T2DM (type 2 diabetes mellitus) E11.9 ; Hypertension I10 ; Hyperlipidemia E78.5 and Facet arthropathy, lumbar M47.816 [facility] [address] [place], [place] [id number] 05/05/2024 Ryan [place] Spinal stenosis of lumbar region with neurogenic claudication M48.062 [facility] [address] [place], [place] [id number] 07/06/2024 Radha Salmon [facility] [address] [facility] [address] [place], [place] [id number] 07/08/2024 Radha Salmon [facility] [address] [facility] [address] [place], [place] [id number] 08/12/2024 Danielle Montalvo Spinal stenosis of lumbar region with neurogenic claudication M48.062 [facility] [address] [place] [id number] 11/23/2024 R Chris Philip Low back pain M54.5 [facility] [address] [place], [place] [id number] 01/10/2025 R Chris Philip Spinal stenosis of lumbar region with neurogenic claudication M48.062 [facility] [address] [place], [place] [id number] 02/01/2025 R Chris Philip Low back pain M54.5 [facility] [address] [place], [place] [id number] 04/04/2025 R Chris Philip [facility] [address] [place], [place] [id number] 04/25/2025 R Chris Philip [facility] [address] [place], [place] [id number] 05/02/2025 R Chris Philip Assessments Encounter Date Diagnosis (ICD Code) Assessment Notes Treatment Notes Treatment Clinical Notes Section Notes 05/05/2024 Spinal stenosis of lumbar region with [...] H10.9) 04/21/2025 Cervical adenopathy (ICD-10 - R59.0) 04/28/2025 Cervical adenopathy (ICD-10 - R59.0) Ultrasound [...] we will proceed with CT scan. 04/28/2025 Adult general medical examination (ICD-10 - Z00.00) Patient instructed to return to office Annually for Annual Wellness Visits to include annual screenings of Pain assessment, Functional Ability assessment, Cognitive Ability assessment, Fall Risk assessment, Depression screening and Bladder control screening. 04/28/2025 T2DM (type 2 diabetes mellitus) (ICD-10 - E11.9) 04/21/2025 T2DM (type 2 diabetes mellitus) (ICD-10 - E11.9) 10/04/2024 Weight loss counseling, encounter for (ICD-10 - Z71.3) will increase x 4 weeks and increase again if tolerates; discussed dietary changes; will RTC in 3 months and will marisol fasting labs 07/06/2024 Headache syndrome (ICD-10 - G44.89) will try Nurtec for sudden onsret headaches; FU in one week 04/21/2025 Hypertension (ICD-10 - I10) 04/28/2025 Hypertension (ICD-10 - I10) 04/28/2025 Hyperlipidemia (ICD-10 - E78.5) 04/28/2025 Facet arthropathy, lumbar (ICD-10 - M47.816) Plan Of Treatment Pending Test Test Name Order Date P-Microalbumin/Creatinine, Random Urine Sample 04/28/2025 Insurance Providers Payer Name Payer Address Payer Phone Subscriber Number Group Number Insured Name Patient Relationship to Insured Coverage Start Date Coverage End Date [employer] ([employer] RE) [address] [address] [place] [id number] [id number] MARTINEZ Self - patient is [...] digit on left foot-fract ure[facility] Meningitis Surgical History Surgery Date(Month/Year) Hysterectomy Cholecystectomy Knee Fissure Repair Excision of lumbar synovial cyst - Dr. Danielle shrestha 11/2006 RT CTS- Dr. Ewing 11/2006 Nasal 03/2008 Tooth Pulled 07/23/2011 [facility]2014 LT Thumb Joint Replacement 10/05/2019 C-scope/ Polyps/ [facility] Hospitalization History Reason Date(Month/Year) Chronic Meningitis- [facility] 10/13/2020 Nausea, Headache- [facility] 2019 Bowel Infection- [facility] 04/2014 Sinus Infection- [facility] 07/15/20 12 Blood Pressure Elevated 12/2010
--- OUTSIDE RECORDS SUMMARY | 2025-05-04 13:18 | XMS_ITS | Continuity of Care Document ---
Author Organization [facility] Address [address] [facility] [address] [place] [address] Phone Care Team Providers Care Rehab Aide Name Role Phone Unavailable Primary Care Provider Unavailabl e Encounters Date Type Department Care Team Description 11/28/2020 Travel 11/28/2020 11:30 AM EST Office Visit [facility] [address] [facility] [address] [place] [address] Francia Archer MD Hx of chronic meningitis (Primary Dx); [id number] condition Allergies Active Allergy Reactions Criticality Noted [...] Active Social History Smoking Status as of 05/04/2025 Tobacco Use Types Packs/Day Years Used Date [...] infections of the central nervous system 11/28/2020 [id number] condition 11/28/2020
[2025-05-04 13:34] VITALS: BP 195/113; PULSE 74; RESP 18; O2SAT 96; BMI 34.7
== END 2025-05-04 23:59 | disposition home or self-care (01) ==
LOC: SC.PAIN 13:15
PROVIDERS: PCP Family Medicine; Visit Provider Nurse Practitioner Family
DX: M25.551 Pain in right hip (principal); M25.552 Pain in left hip; M54.9 Dorsalgia, unspecified; G89.29 Other chronic pain; Z79.899 Other long term (current) drug therapy; Z79.891 Long term (current) use of opiate analgesic
CPT/HCPCS: 99202; G0463

== ENCOUNTER 2025-05-18 14:34 | Outpatient (RCR) | payer MEDICARE, SELFPAY | END 2025-05-18 23:59 | disposition home or self-care (01) | LOC: PT 14:34 | PROVIDERS: PCP Family Medicine; Visit Provider Physician Assistant | DX: R20.8 Other disturbances of skin sensation (principal) | CPT/HCPCS: 97162 ==

== ENCOUNTER 2025-05-24 08:23 | Day surgery (SDC) | payer MEDICARE, SELFPAY ==
[2025-05-24 08:47] VITALS: BP 178/108; PULSE 78; RESP 18; O2SAT 95; BMI 34.7
[2025-05-24] MEDS: BUPIVACAINE 0.25% 10ML INJ 25 MG IJ (08:55)
[2025-05-24] MEDS: LIDOCAINE 1% 5ML PF VIAL 5 ML (08:55)
[2025-05-24 08:56] VITALS: BP 180/99; PULSE 78; RESP 18; O2SAT 97
[2025-05-24 09:00] VITALS: BP 180/99; PULSE 78; RESP 18; O2SAT 98
--- NOTE | 2025-05-24 09:06 | P.PCN_ITS ---
Procedure Date: 05/24/25 Time: 08:40 Anesthesiologist:: Zachary Hart CRNA Complications:: None Pre-procedure Diagnosis:: Bilateral sacroiliitis Post-procedure Diagnosis:: Same Indications for Procedure:: Patient is a very pleasant 70-year-old female comes to clinic today for bilateral sacral joint injection of cortisone for diagnostic purposes. Patient describes low lumbar back pain off the midline bilaterally. Bilateral posterior hip pain. Difficulty transitioning from sitting to standing. Difficulty with ambulation. She rates her pain 8/10. Procedure Details:: Procedure: Bilateral sacroiliac joint injections under fluoroscopy Informed consent was obtained and the risks and benefits of the procedure were explained to the patient.~ The patient was taken to the procedure room and noninvasive monitors were placed including a noninvasive blood pressure cuff and pulse oximeter.~ The patient was placed prone on the procedure table. Both hips were cleansed using Betadine as a cleansing solution. C-arm fluoroscopy was used to view the right sacroiliac joint.~ The skin and subcutaneous tissues were anesthetized using lidocaine 1.5% and a 25-gauge needle.~ After this, a 22-gauge spinal needle was inserted under fluoroscopic guidance into the inferior aspect of the right sacroiliac joint.~ Omnipaque dye was injected and good spread was seen throughout the joint.~ After this, 3 cc of 1% lidocaine +3 cc of 0.25% Marcaine was incrementally injected into the right sacroiliac joint. We then moved to the left sacroiliac joint.~ The skin and subcutaneous tissues were anesthetized using lidocaine 1.5% and a 25-gauge needle.~ After this, a 22- gauge spinal needle was inserted under fluoroscopic guidance into the inferior aspect of the left sacroiliac joint.~ Omnipaque dye was injected and good spread was seen throughout the joint. At this time 3 cc 1% lidocaine +3 cc 0.25% Marcaine was injected..~ The patient tolerated the procedure well with no complications. The patient was observed in the Pain Clinic and then was discharged home neurologically intact. Plan and Disposition:: Patient was reevaluated 10 minutes postprocedure. She reports 90+ percent improvement terms of her overall low lumbar back pain as well as bilateral posterior hip pain symptoms. Sitting and standing without pain. Ambulating without pain. She rates her pain 1/10.
[2025-05-24 09:32] VITALS: BP 171/96; PULSE 77; RESP 18; O2SAT 99
== END 2025-05-24 09:32 | disposition home or self-care (01) ==
PROVIDERS: PCP Family Medicine; Visit Provider Nurse Anesthetist, Certified Registered
DX: M46.1 Sacroiliitis, not elsewhere classified (principal); G89.29 Other chronic pain; M54.50 Low back pain, unspecified; M25.552 Pain in left hip; M25.551 Pain in right hip; E11.9 Type 2 diabetes mellitus without complications; I10 Essential (primary) hypertension; E78.5 Hyperlipidemia, unspecified; J45.909 Unspecified asthma, uncomplicated; F32.A Depression, unspecified; Z79.85 Long-term (current) use of injectable non-insulin antidiabetic drugs; Z79.899 Other long term (current) drug therapy; Z88.1 Allergy status to other antibiotic agents; Z91.048 Other nonmedicinal substance allergy status
CPT/HCPCS: G0260; J0665; J2003

== ENCOUNTER 2025-06-01 10:42 | Outpatient (POV) | payer MEDICARE, SELFPAY ==
--- OUTSIDE RECORDS SUMMARY | 2024-10-04 10:00 | XMS_ITS ---
[facility] Address [address] [place] [id number] Care Team Providers Care Pants Maker Name Role Phone Mike Palacios Primary Care Provider [phone] Radha Salmon Unavailable [phone] Allergies Allergen (clinical drug ingredient) Drug/Non Drug Allergy documented on EMR Reaction Allergy Type Onset Date Status MONSTER LOPEZ (uncoded) hives Allergy Active Medicinal cephalosporin and acting as antibacterial agent (FN) Cephalosporins anaphylaxis Drug Allergy Active REASON FOR VISIT rash in head Medications Medication SIG (Take, Route, Frequency, Duration) Notes Start Date End Date Status Albuterol Sulfate HFA 108 (90 Base) MCG/ACT 1 puff(s) inhaled four times a day; Duration: 30 day(s) Active Trelegy Ellipta 100-62.5-25 MCG/ACT 1 puff(s) inhaled once a day; Duration: 30 days 01/27/2023 Active CareTouch CPAP & BIPAP Hose 1 DIRECTED *Please review and pick correct strength-formula tion from [employer] options. If intended option is not shown, discontinue and re-order from Quick Search* 01/24/2022 Active ZyrTEC Allergy 10 MG 1 tab(s) orally onc e a day Active ProAir Digihaler 108 (90 Base) MCG/ACT 2 puff(s) inhaled every 6 hours; Duration: 30 day(s) 09/01/2020 Active Gabapentin 300 MG 1 cap(s) qam, 2 at bedtime orally; Duration: 30 day(s) 08/12/2024 Active Ubrelvy 100 MG 1 tablet may take second dose at least 2 hours after first dose as needed Orally Once a day 07/08/2024 Active Nizoral Psoriasis Shampoo/Cond 3 % 1 application as needed Externally Three times a Week; Duration: 30 days 10/04/2024 Active Diflucan 150 MG 1 tablet Orally; Duration: 7 day(s) 10/04/2024 Active Mounjaro 7.5 MG/0.5ML 0.5 ml Subcutaneou s weekly; Duration: 30 days Active Doxycycline Hyclate 100 MG 1 tablet Orally Twice a day; Duration: 10 day(s) 07/06/2024 Active DULoxetine HCl 60 MG 1 cap(s) orally onc e a day; Duration: 90 days Active Nurtec 75 MG 1 tablet on the tongue and allow to dissolve Orally qd prn; Duration: 30 days 07/06/2024 Active Nizoral 1 % 1 application Externally 3 x weekly; Duration: 30 days 07/06/2024 Active Cyclobenzaprine HCl 5 MG 1 tablet at bed time as needed Orally tid prn; Duration: 30 day(s) 07/06/2024 Active HYDROcodone-Acetaminophe n 5-325 MG 1 tab(s) orally once a day as needed 03/11/2024 Active Losartan Potassium 100 MG 1 tab(s) orally at bedtime; Duration: 90 days Active Rosuvastatin Calcium 20 mg TAKE ONE TABLET BY MOUTH EVERY DAY; Duration: 90 Active hydroCHLOROthiazide 25 MG 1 cap(s) orally once a day Active Metoprolol Succinate ER 50 MG 1 tab(s) orally once a day Active Xanax 0.5 MG 1 tab(s) orally two times a day as needed 01/27/2023 Active EPINEPHrine 0.3 MG/0.3ML INJECT THE CONT ENTS OF 1 AUTO-INJECTOR INTRAMUSCULARLY ONCE NEEDED FOR ANAPHYLAXIS REACTION; Duration: 1 Active DIABETIC TESTING SUPPLIES TO TEST BID PRN *Please review for potential replacement for e-prescription and drug interaction check* Active Aspirin Low Dose 81 MG 1 tab(s) chewed o nce a day Active Esomeprazole Magnesium 20 MG 1 cap(s) orally once a day OTC Active CareTouch CPAP & BIPAP Hose 1 AUTO TITRATING DIRECTED *Please review and pick correct strength-formula tion from [employer] options. If intended option is not shown, discontinue and re-order from Quick Search* 10/23/2017 Active Vital Signs Blood pressure systolic 120 mm Hg 10/04/20 24 Blood pressure diastolic 90 mm Hg 024 Heart Rate 81 /min 10/04/2024 Height 66 in 10/04/2024 Weight 222.8 lbs 10/04/2024 BMI 35.96 kg/m2 10/04/2024 Encounters Encounter Location Date Provider Diagnosis [facility] [address] [facility] [address] [place] [id number] 10/04/2024 Radha Salmon Fungal skin infectio n B36.9 ; T2DM (type 2 diabetes mellitus) E11.9 and Weight loss counseling, encounter for Z71.3 Assessments Encounter Date Diagnosis (ICD Code) Assessment Notes Treatment Notes Treatment Clinical Notes Section Notes 10/04/2024 Fungal skin infection (ICD-10 - B36.9) disussed how to use shampoo 10/04/2024 T2DM (type 2 diabetes mellitus) (ICD-10 - E11.9) 10/04/2024 Weight loss counseling, encounter for (ICD-10 - Z71.3) will increase x 4 weeks and increase again if tolerates; discussed dietary changes; will RTC in 3 months and will marisol fasting labs Plan Of Treatment Medication Medication Name Sig Start Date Stop Date Notes Nizoral Psoriasis Shampoo/Cond 3 % 1 application as needed Externally Three times a Week; Duration: 30 days 10/04/2024 Diflucan 150 MG 1 tablet Orally; Dur ation: 7 day(s) 10/04/2024 Mounjaro 7.5 MG/0.5ML 0.5 ml Subcutaneou s weekly; Duration: 30 days Treatment Notes Assessment Notes Fungal skin infection disussed how to us e shampoo Weight loss counseling, encounter for wi ll increase x 4 weeks and increase again if tolerates; discussed dietary changes; will RTC in 3 months and will marisol fasting labs Next Appt Details Follow Up: 3 Months with lab s and prn, Reason: Provider Name:Mike Ty, 06/02/2025 02:00:00 PM, [address] [facility], [address], [place], [id number], Progress Notes * ALLYSSA VALDEZ:1955 ( 70 yo F)Acc No.[id number]:10/04/2024 Progress Notes Patient: NASIM CHAHAL Provider: ANDREW Hu :1955 A ge:69 Y S ex:Female Date:10/04/2024 Address:[address], [place], [id number] Pcp:Mike Palacios Subjective: * Chief Complaints: * 1 . Rash in head. * HPI: D ermatology: 69 year old female presents with c/o rash P t is here today with c/o a rash on her scalp. Pt sts the rash has been there since May. Pt sts it has not gotten any better, and sts she thinks she has ringworm of the scalp. Pt sts she has put Vinegar on it which did dry it up some. Pt sts she has washed her hair every other day, and sts she has tried hydrocortisone cream, athletes foot cream and a bunch of others and sts none of the things she has used has helped or gotten rid of it. Pt sts does itch and it does hurt. c/o redness. c/o itching.? * ROS: D ERMATOLOGY: no R victor m. n o H noel. G ASTROENTEROLOGY: Positive for e ating and drinking well; has been eating sweets and hs had weight gain. n o N ausea. n o V omiting. n o D iarrhea. ? M USCULOSKELETAL: Joint pain y es, n taiwo. U ROLOGY: no D ifficulty urinating. n o B lood in urine. * Medical History: A llergies, Asthma, Hypertension, Diverticulosis, Anxiety, YOVANY, Lumbar spinal stenosis with chronic pain, Depression, OA, Hyperlipidemia, 2nd digit on left [id number][facility]fnydzkku[facility]hwvunea [facility], Chronic M[facility]. * Surgical History: H ysterectomy , Cholecystectomy , Knee , Fissure Repair , Excision of lumbar synovial cyst - Dr. Ewing 11/2006, RT CTS- Dr. Ewing 11/2006, Nasal 03/2008, Tooth Pulled 07/23/2011, Colon Resection for Tics , Back- [facility] 09/13/2014, LT Thumb Joint Replacement 10/05/2019, C-scope/ Polyps/ [facility] . * Hospitalization/Major Diagno stic Procedure: B lood Pressure Elevated 12/2010, Sinus Infection- [place] [facility] 07/15/2012, Bowel Infection- [facility] 04/2014, Nausea, Headache- [facility] 2019, Chronic Meningitis- [facility] 10/13/2020. * Family History: F ather: [...] Type: , Frequency: ,Years: , Determination:. * Medications: T aking ProAir Digihaler 108 (90 Base) MCG/ACT Aerosol Powder Breath Activated 2 puff(s) inhaled every 6 hours , Taking ZyrTEC Allergy 10 MG Tablet 1 tab(s) orally once a day , Taking CareTouch CPAP & BIPAP Hose MACHINE AND SUPPLIES 1 DIRECTED , Notes to Pharmacist: *Please review and pick correct strength-formulation from Medispan options. If intended option is not shown, discontinue and re-order from Quick Search*, Taking Trelegy Ellipta 100-62.5-25 MCG/ACT Aerosol Powder Breath Activated 1 puff(s) inhaled once a day , Taking Albuterol Sulfate HFA 108 (90 Base) MCG/ACT Aerosol Solution 1 puff(s) inhaled four times a day , Taking CareTouch CPAP & BIPAP Hose MACHINE AND SUPPLIES 1 AUTO TITRATING DIRECTED , Notes to Pharmacist: *Please review and pick correct strength-formulation from Medispan options. If intended option is not shown, discontinue and re-order from Quick Search*, Taking Xanax 0.5 MG Tablet 1 tab(s) orally two times a day as needed , Taking DIABETIC TESTING SUPPLIES TO TEST BID PRN , Notes to Pharmacist: *Please review for potential replacement for e-prescription and drug interaction check*, Taking EPINEPHrine 0.3 MG/0.3ML Solution Auto-injector INJECT THE CONTENTS OF 1 AUTO-INJECTOR INTRAMUSCULARLY ONCE NEEDED FOR ANAPHYLAXIS REACTION , Taking Esomeprazole Magnesium 20 MG Capsule Delayed Release 1 cap(s) orally once a day , Notes to Pharmacist: OTC, Taking Aspirin Low Dose 81 MG Tablet Chewable 1 tab(s) chewed once a day , Taking Rosuvastatin Calcium 20 mg Tablet TAKE ONE TABLET BY MOUTH EVERY DAY , Taking Metoprolol Succinate ER 50 MG Tablet Extended Release 24 Hour 1 tab(s) orally once a day , Taking hydroCHLOROthiazide 25 MG Tablet 1 cap(s) orally once a day , Taking Losartan Potassium 100 MG Tablet 1 tab(s) orally at bedtime , Taking HYDROcodone-Acetaminophen 5-325 MG Tablet 1 tab(s) orally once a day as needed , Taking DULoxetine HCl 60 MG Capsule Delayed Release Particles 1 cap(s) orally once a day , Taking Doxycycline Hyclate 100 MG Tablet Delayed Release 1 tablet Orally Twice a day , Taking Nizoral 1 % Shampoo 1 application Externally 3 x weekly , Taking Nurtec 75 MG Tablet Disintegrating 1 tablet on the tongue and allow to dissolve Orally qd prn , Taking Cyclobenzaprine HCl 5 MG Tablet 1 tablet at bedtime as needed Orally tid prn , Taking Ubrelvy 100 MG Tablet 1 tablet may take second dose at least 2 hours after first dose as needed Orally Once a day , Taking Gabapentin 300 MG Capsule 1 cap(s) qam, 2 at bedtime orally , Taking Mounjaro 2.5 MG/0.5ML Solution Pen-injector INJECT THE CONTENTS OF 1 PEN (2.5 MG / 0.5ML) SUBCUTANEOUSLY ONCE A WEEK , Medication List reviewed and reconciled with the patient * Allergies: K ILZ, PAINT: hives, Cephalosporins: anaphylaxis - Allergy. Objective: * Vitals: W t:222.8, Temp:98.4, BP:120/90, HR:81, O2 Sat:97% on RA, Nurse:ANKIT, Ht: 66, BMI:35.96. Assessment: * Assessment: 1. F ungal skin infection - B36.9 (Primary) S pecify :scalp 2 . T 2DM (type 2 diabetes mellitus) - E11.9 3 . W eight loss counseling, encounter for - Z71.3 Plan: * Treatment: 2. W eight loss counseling, encounter for Increase Mounjaro Solution Auto-injector, 7.5 MG/0.5ML, 0.5 ml, Subcutaneous, weekly, 30 days, 1, Refills 3. Notes: will increase x 4 weeks and increase again if tolerates; discussed dietary changes; will RTC in 3 months and will marisol fasting labs * Procedure Codes: 9 4760 PULSE OX, G2211 Complex e/m visit add on * Follow Up: 3 Months with labs and prn * Images: Billing Information: * Visit Code: 86235 Office Visit, Est Pt., Level 3. * Procedure Codes: 95875 PULSE OX. G2211 Complex e/m visit add on. * Electronic signature of Kylee Salmon , NIESHA on 06/01/2025 at 10:48 AM EDT Sign off status: Pending * Provider: ANDREW Hu Date: 12/05/2023 Generated for Salvador foley/Ryann/Magdasmitting on: 0 06/01/2025 10:48 AM EDT History and Physical Notes * HPI (History of Present Illness) Category Sub-Category Detail Notes Category Not es Dermatology redness itching rash Pt is here today wit h c/o a rash on her scalp. Pt sts the rash has been there since May. Pt sts it has not gotten any better, and sts she thinks she has ringworm of the scalp. Pt sts she has put Vinegar on it which did dry it up some. Pt sts she has washed her hair every other day, and sts she has tried hydrocortisone cream, athletes foot cream and a bunch of others and sts none of the things she has used has helped or gotten rid of it. Pt sts does itch and it does hurt
--- OUTSIDE RECORDS SUMMARY | 2025-04-21 10:15 | XMS_ITS ---
Author Organization [facility] Address [address] [place] [phone] Care Team Providers Care Sample Paster Name Role Phone Mike Palacios Primary Care Provider Radha Salmon Unavailable [phone] Allergies Allergen (clinical drug ingredient) Drug/Non Drug [...] review and pick correct strength-formula tion from deviantART options. If intended option is not shown, discontinue and re-order from Quick Search* 10/23/2017 Active DIABETIC TESTING SUPPLIES TO TEST BID PRN *Please review for potential replacement for e-prescription and drug interaction check* Active CareTouch CPAP & BIPAP Hose 1 DIRECTED *Please review and pick correct strength-formula tion from deviantART options. If intended option is not shown, [...] 04/21/2025 Encounters Encounter Location Date Provider Diagnosis [facility] [address] [place], [place] [phone] 04/21/2025 Mike Palacios Cervical adenopathy R59.0 ; [...] Up: 1 Week, Reason: Provider Name:Mike Ty, 06/02/2025 02:00:00 PM, [address], [place], [phone], Progress Notes * NASIM VALDEZDOB:1955 ( 70 yo F)Acc No.[id number]:04/21/2025 Progress Notes Patient: NASIM CHAHAL Provider: Mike Palacios M.D. :1955 A ge:69 Y S ex:Female Date:04/21/2025 Address[place] [id number] Subjective: * Chief Complaints: * 1 . [...] Depression, OA, Hyperlipidemia, 2nd digit on left qold-lczmrela-qhbmkyrn [facility], Chronic Meningitis. * Surgical History: [...] B lood Pressure Elevated 12/2010, Sinus Infection- [place] [facility] 07/15/2012, Bowel Infection- [facility] 04/2014, Nausea, Headache- [facility] ER 2019, Chronic Meningitis- [facility] ER 10/13/2020. * Family History: F [...] *Please review and pick correct strength-formulation from Cirrascalean options. If intended option is not shown, [...] *Please review and pick correct strength-formulation from Cirrascalean options. If intended option is not shown, [...] * Images: Billing Information: * Visit Code: 90467 Office Visit, Est Pt., Level 3. * Procedure Codes: G2211 Complex e/m visit add on. 1036F TOBACCO NON-USER. G8783 BP SCR PRFRM RCMDD DEFIND SCR INTVL. G8752 MOST RECENT SYSTOLIC BP < 140MM HG. G8754 MOST RECENT DIASTOLIC BP < 90MM HG. * Electronic signature of Mike Palacios MD on 06/01/2025 at 10:47 AM EDT Sign off status: Pending * Provider: Mike Palacios M.D. Date: 0 04/21/2025 Generated for Salvador foley/Ryann/Karlyitting on: 0 06/01/2025 10:47 AM EDT History and Physical Notes * [...]
--- OUTSIDE RECORDS SUMMARY | 2025-04-28 05:45 | XMS_ITS ---
Author Organization [facility] Address [address] [place] [id number] Care Team Providers Care Pc Tech Name Role Phone Mike Palacios Primary Care Provider [phone] Radha Salmon Unavailable [phone] Allergies Allergen (clinical drug ingredient) Drug/Non Drug [...] 51 Performing Lab: Notes/Report: Test performed by [facility] [employer] [address] [place] [address] , [address], [place] [address] Dustin Sykes MD, Financial Reporting Specialist CLIA: [id number] Sodium 144 135-145 mmol/L Potassium 4.5 3.5-5.3 [...] 39 Performing Lab: Notes/Report: Test performed by [facility] [address] [facility] , [address], [place] [address] Dustin Sykes MD, Financial Reporting Specialist CLIA: [id number] Cholesterol 165 <200 mg/dL Triglycerides 189 <150 [...] Last Name Philip Referring Provider Speciality Family [facility] humberto Referred Provider [place] Referred Provider Specialty Pain Managem ent General Notes Jeana Khan 2024 02:13:02 PM > faxed to [facility] Pain Management Referral Priority Routine REASON [...] Problem Arthropathy of lumbar facet joint (disorder) (609028865) Facet arthropathy , lumbar (M47.816) Active confirmed Problem Body mass index 30.00 to 34.99 (004825203680711) BMI 34.0-34.9,a dult (Z68.34) Active confirmed Vital Signs Blood pressure systolic 134 mm Hg 04/28/20 25 Blood pressure diastolic 94 mm Hg 025 Heart Rate 85 /min 04/28/2025 Height 66 in 04/28/2025 Weight 215.8 lbs 04/28/2025 BMI 34.83 kg/m2 04/28/2025 Encounters Encounter Location Date Provider [facility] [address] [id number] 04/28/2025 R Chris Palacios Adult general medica [...] Appt Details Follow Up: 6 Months, Reason: Provider Name:Mike Perez et, 06/02/2025 02:00:00 PM, [address], [address], [place], [id number], Progress Notes * PRESLEYLAUREN COOKTALYADOB:1955 ( 70 yo F)Acc No.[id number]:04/28/2025 Annual Wellness Visit Patient: NASIM CHAHAL Provider: Mike Palacios M.D. :1955 A ge:70 Y S ex:Female Date:04/28/2025 [facility] [id number] Subjective: * Chief Complaints: * 1 . [...] Depression, OA, Hyperlipidemia, 2nd digit on left glle-ygniaytn-giysodmi by [facility], Chronic Meningitis, Neuropathic dermatitis - followed by [...] B lood Pressure Elevated 12/2010, Sinus Infection- [facility] 07/15/2012, Bowel Infection- [facility] 04/2014, Nausea, Headache- [facility] 2019, Chronic Meningitis- [facility] 10/13/2020. * Family History: F [...] hronic bronchitis - J42 1 3. B [place] 34.0-34.9,adult - Z68.34 Plan: * Treatment: Value [...] VST, G2211 Complex e/[place], [address] GLYCATED HEMOGLOBIN TEST, Modifiers: QW , 1090F PRES/ABSN URINE INCON ASSESS, 3288F FALL RISK ASSESSMENT DOCD, 1170F FXNL STATUS ASSESSED, 1159F MED LIST DOCD IN RCRD, 1003F LEVEL OF ACTIVITY ASSESS, 1036F TOBACCO NON-USER, 3017F COLORECTAL CA SCREEN DOC REV, G9899 Scrn nba perf rslts doc, 52679 CBC WITH AUTO DIFF, 1125F AMNT PAIN [...] * Images: Billing Information: * Visit Code: 99552 Office Visit, Est Pt., Level 3. Modifiers: 25 * Procedure Codes: G0439 ANNUAL WELLNESS VST; PPS SUBSQT VST. G2211 Complex e/[place]. [address] GLYCATED HEMOGLOBIN TEST. Modifiers: QW 1090F PRES/ABSN URINE INCON ASSESS. 3288F FALL RISK ASSESSMENT DOCD. 1170F FXNL STATUS ASSESSED. 1159F MED LIST DOCD IN RCRD. 1003F LEVEL OF ACTIVITY ASSESS. 1036F TOBACCO NON-USER. 3017F COLORECTAL CA SCREEN DOC REV. G9899 Scrn [place]. 265[address] CBC WITH AUTO DIFF. 1125F AMNT PAIN [...] M.D. Date: 0 04/28/2025 Generated for Salvador foley/Ryann/Karlyitting on: 0 06/01/2025 [...] Provider Referred Provider Not es 04/29/2025 Mike Palacios, Ken low back p ain; facet arthropathy
--- OUTSIDE RECORDS SUMMARY | 2025-06-01 10:48 | XMS_ITS | Patient Health Record ---
[facility] Organization [facility] Address [address] [place] [id number] Care Team Providers Care Chief Librarian Branch Or Department Name Role Phone Mike Palacios Primary Care Provider Radha Salmon Unavailable [phone] Danielle Montalvo Unavailable [phone] Allergies Allergen (clinical drug ingredient) Drug/Non Drug [...] 51 Performing Lab: Notes/Report: Test performed by [email or web address], [facility] [address] [place] [address] , [address], [place] [address] Dustin Sykes MD, Endoscopy Technician CLIA: [id number] Sodium 144 135-145 mmol/L Potassium 4.5 3.5-5.3 [...] 39 Performing Lab: Notes/Report: Test performed by [employer] [address] [place] [address] , [address], [place] [address] Dustin Sykes MD, Endoscopy Technician CLIA: [id number] Cholesterol 165 <200 mg/dL Triglycerides 189 <150 [...] Results: 88 Units: mg/dL % Change: +49% Mammogram Reviewed date:12/20/2024 08:52:09 AM Interpretation:Negative, annual f/u Performing Lab: Notes/Report: Negative, annual f/u result Negative, annual f/u Ultrasound : Neck Reviewed date:05/01/2025 10:20:09 AM Interpretation: Performing Lab: Notes/Report: CBC Fingerstick (in house) Reviewed date:07/06/2024 01:31:04 [...] - 38 plat 204 100 - 400 Medications Medication SIG (Take, Route, Frequency, Duration) [...] times a day as needed 01/27/2023 Active Mounjaro 7.5 MG/0.5ML INJECT 7.5 MG (0.5 ML) SUBCUTANEOUSLY ONCE WEEKLY Subcutaneous once weekly; Duration: 90 days Active DIABETIC TESTING SUPPLIES TO TEST BID PRN Active EPINEPHrine 0.3 MG/0.3ML INJECT THE CONT ENTS OF 1 AUTO-INJECTOR INTRAMUSCULARLY ONCE NEEDED FOR ANAPHYLAXIS REACTION; Duration: 1 Active Esomeprazole Magnesium 20 MG 1 cap(s) orally once a day OTC Active Aspirin Low Dose 81 MG 1 tab(s) chewed o nce a day Active Gabapentin 300 MG 1 cap(s) qam, 3 at bedtime orally twice a day; Duration: 30 days 05/05/2025 Active HYDROcodone-Acetaminophen 5-325 MG 1 tab(s) orally once a day as needed 04/28/2025 Active Rosuvastatin Calcium 20 mg take 1 tablet orally once a day; Duration: 90 days Active DULoxetine HCl 60 mg TAKE ONE CAPSULE BY MOUTH EVERY DAY; Duration: 90 Active Losartan Potassium 100 MG 1 tab(s) orall y Once a day; Duration: 90 days Active ProAir Digihaler 108 (90 Base) [...] a Week; Duration: 30 days 10/04/2024 Active Nizoral 1 % 1 application [...] Status Risk Notes Problem Gastroesophageal reflux disease (918601583) GERD (gastroesophageal reflux disease) (K21.9) Active confirmed Problem Hyperglycemia (41115591) Hyperglycemia (R73.9) Active confirmed Problem Hypertension (64664980) HTN (hypertension) (I10) Active confirmed Problem Hyperlipidemia (51565887) Hyperlipidemia (E78.5) Active confirmed Problem Arthropathy of lumbar facet joint (disorder) (323390211) Facet arthropathy, lumbar (M47.816) Active confirmed Problem Anxiety (89584414) Anxiety (F41.9) Active confi rmed Problem Hypertension (72314820) Hypertension (I10) Active confirmed Problem Environmental allergy (541222381) Environmental allergies (Z91.048) Active confirmed Problem Obstructive sleep apnea (76388158) Obstructive sleep apnea (G47.33) Active confirmed Problem Chronic meningitis (69560329) Chronic meningitis (G03.1) Active confirmed Problem Chronic pain syndrome (423317984) Chronic pain syndrome (G89.4) Active confirmed Problem Chronic maxillary sinusitis (19995911) Chronic maxillary sinusitis (J32.0) Active confirmed Problem Depression (521977694) Depression (F32.9) Active confirmed Problem Chronic bronchitis (86639203) Chronic bronchitis (J42) Active confirmed Problem Type II diabetes mellitus without complication (324603317) T2DM (type 2 diabetes mellitus) (E11.9) Active confirmed Problem Headache (44546000) Headache syn drome (G44.89) Active confirmed Problem Osteoarthritis of knee (496756963) Primary osteoarthritis of both knees (M17.0) Active confirmed Problem Carpal tunnel syndrome of left wrist (832845578864130) Carpal tunnel syndrome of left wrist (G56.02) Active confirmed Problem Body mass index 30.00 to 34.99 (859501462684545) BMI 31.0-31.9,adult (Z68.31) Active confirmed Problem Body mass index 30.00 to 34.99 (248866025535490) BMI 34.0-34.9,adult (Z68.34) Active confirmed Problem Arthropathy (075200171) Arthritis involving multiple sites (M12.9) Active confirmed Problem Vitamin D deficiency (58559796) Low vitamin D level (E55.9) Active confirmed Problem Chronic mixed headache syndrome (80984263) Chronic mixed headache syndrome (G44.89) Active confirmed Problem Allergic reaction to bee sting (775578887) Bee sting allergy (Z91.030) Active confirmed Vital Signs Heart Rate 85 /min 04/28/2025 Blood pressure diastolic 94 mm Hg 04/28/2025 Height 66 in 04/28/2025 Blood pressure systolic 134 mm Hg 04/28/2025 Weight 215.8 lbs 04/28/2025 BMI 34.83 kg/m2 04/28/2025 Encounters Encounter Location Date Provider Diagnosis [facility] [address] [facility] [address] [place] [id number] 07/06/2024 Radha Salmon Neck pain M54.2 ; Sc alp cyst L72.9 and Headache syndrome G44.89 [facility] [address] [facility] [address] [place], [place] [id number] 10/04/2024 Radhajulieta Salmon Fungal skin infectio n B36.9 ; T2DM (type 2 diabetes mellitus) E11.9 and Weight loss counseling, encounter for Z71.3 [facility] [address] [facility] [address] [place], [place] [id number] 04/21/2025 Mike Palacios Cervical adenopathy R59.0 ; Conjunctivitis H10.9 ; T2DM (type 2 diabetes mellitus) E11.9 and Hypertension I10 [facility] [address] [facility] [address] [place], [place] [id number] 04/28/2025 R Chris Palacios Adult general medica l examination Z00.00 ; Cervical adenopathy R59.0 ; T2DM (type 2 diabetes mellitus) E11.9 ; Hypertension I10 ; Hyperlipidemia E78.5 ; Facet arthropathy, lumbar M47.816 ; Depression F32.9 ; Anxiety F41.9 ; Chronic mixed headache syndrome G44.89 ; GERD (gastroesophageal reflux disease) K21.9 ; Obstructive sleep apnea G47.33 ; Chronic bronchitis J42 and BMI 34.0-34.9,adult Z68.34 [facility] [address] [facility] [address] [place], [place] [id number] 07/06/2024 Radha Salmon [facility] [address] [facility] [address] [place], [place] [id number] 07/08/2024 Radhajulieta Christiansenond [place] [address] [facility] [address] [place], [place] [id number] 08/12/2024 Danielle Montalvo Spinal stenosis of lumbar region with neurogenic claudication M48.062 [facility] [address] [place], [place] [id number] 11/23/2024 R Chris Philip Low back pain M54.5 [facility] [address] [place], [place] [id number] 01/10/2025 R Chris Philip Spinal stenosis of lumbar region with neurogenic claudication M48.062 [facility] [address] [place], [place] [id number] 02/01/2025 R Chris Philip Low back pain M54.5 [facility] [address] [place], [place] [id number] 04/04/2025 R Chris Philip [facility] [address] [place], [place] [id number] 04/25/2025 R Chris Philip [facility] [address] [place], [place] [id number] 05/02/2025 R Chris Philip [facility] [address] [place], [place] [id number] 05/04/2025 R Chris Philip Spinal stenosis of lumbar region with neurogenic claudication M48.062 [facility] [address] [place], [place] [id number] 05/16/2025 R Chris Philip Assessments Encounter Date Diagnosis (ICD Code) Assessment Notes Treatment Notes Treatment Clinical Notes Section Notes 07/06/2024 Neck pain (ICD-10 - M54.2) suggested [...] assessment, Depression screening and Bladder control screening. 05/04/2025 Spinal stenosis of lumbar region with neurogenic claudication (ICD-10 - M48.062) 04/28/2025 T2DM (type 2 diabetes mellitus) (ICD-10 [...] 34.0-34.9,adult (ICD-10 - Z68.34) Plan Of Treatment Pending Test Test Name Order Date P-Microalbumin/Creatinine, Random Urine Sample 04/28/2025 Next Appt Details Provider Name:Mike Chris Perez et, 06/02/2025 02:00:00 PM, [address], [place], [place], [id number], Insurance Providers Payer Name Payer Address Payer Phone Subscriber Number Group Number Insured Name Patient Relationship to Insured Coverage Start Date Coverage End Date [employer] ([employer]) [address] [address] [place] [address] [id number] COURTNEY NASIM Self - patient is the insured Medications [...] digit on left foot-fract ure[facility] Chronic Meningitis Neuropathic dermatitis - [facility] Surgical History Surgery Date(Month/Year) Hysterectomy Cholecystectomy Knee Fissure Repair Excision of lumbar synovial cyst - Dr. Danielle shrestha 11/2006 RT CTS- Dr. Ewing 11/2006 Nasal 03/2008 Tooth Pulled 07/23/2011 Colon Resection for Tics Back- [facility] 09/13/2014 LT Thumb Joint Replacement 10/05/2019 C-scope/ Polyps/ [place] Hospitalization History Reason Date(Month/Year) Chronic Meningitis- [facility] 10/13/2020 Nausea, Headache- [facility] 2019 Bowel Infection- [facility] 04/2014 Sinus Infection- [place] 07/15/20 12 Blood Pressure Elevated 12/2010
--- OUTSIDE RECORDS SUMMARY | 2025-06-01 10:49 | XMS_ITS | Continuity of Care Document ---
Author Organization [facility] Address [address] [facility] [address] [place] [address] Phone Care Team Providers Care Long Line Teamster Name Role Phone Unavailable Primary Care Provider Unavailabl e Encounters Date Type Department Care Team Description 11/28/2020 Travel 11/28/2020 11:30 AM EST Office Visit [facility] [address] [facility] [address] [place] [address] Frnacia Archer MD Hx of chronic meningitis (Primary Dx); [id number] condition Allergies Active Allergy Reactions Criticality Noted [...] Active Social History Smoking Status as of 06/01/2025 Tobacco Use Types Packs/Day Years Used Date [...] infections of the central nervous system 11/28/2020 [id number] condition 11/28/2020
--- NOTE | 2025-06-01 11:10 | EXP.PAIN.SOA ---
[facility] Disclaimer: The information contained in this section may have been updated after the patient was seen, as this information can be updated by other users. Medical History Depression Diabetes mellitus, type 2 Asthma Hyperlipidemia Hypertension Surgical History History of tubal ligation History of hysterectomy History of cholecystectomy Family History Other Unknown family medical history Social History Smoking Status: Never smoker alcohol intake: never substance use type: denies use current occupational status: retired Travel in the last 8 weeks?: None household members: spouse housing: house current occupation: [employer] current occupational exposures/hazards: No caffeine: Yes PM Subjective & Objective Subjective Subjective:: Patient is a pleasant 70-year-old female who presents today for follow-up of a diagnostic bilateral SI injections on 05/24/2025. Today she rates her pain a 6 out of 10. She denies any new trauma or injury. Patient does state that the initial injections while she was good and numb was at least 90%. Patient does state that she felt like it did still help a little bit over the next 2-day but rated more about 60 to 70% relief. Patient is back to her baseline today and rates the pain a 6 out of 10. She does state the pain is still all across her low back and into her hips. She does state the pain is back to interfering with her ability perform activities of daily living such as cooking and cleaning. She does state that she would like to get scheduled for repeat injections as they did really significantly help. Patient states she had improved function. Patient is prescribed [place] and gabapentin from an outside provider. She does state that the compounded cream we ordered she has not yet gotten. She states she did talk to the pharmacy on the phone and then got a letter in the mail. Her Kurtis has been reviewed and is appropriate. Review of Systems: General: No recent weight changes, no fever, no sleep disturbances Respiratory: No cough, no shortness of air, no recurring pulmonary infections Cardiovascular/peripheral vascular: No chest pain, no palpitations, no edema, no shortness of breath Gastrointestinal: No new onset incontinence, normal bowel movements reported Genitourinary: No new onset incontinence Musculoskeletal: Low back pain, hip pain Psychiatric: [Normal mood/affect] Neurological: [Denies weakness in extremities], [denies balance issues] Pain at rest (0-10 scale): 6 Objective Objective:: Physical Exam: General: Alert and oriented x3, no acute distress, pleasant and cooperative Lungs: Respirations even and unlabored, symmetrical chest expansion Eyes: PERRL Musculoskeletal: Flexion and extension of lumbar [spine] somewhat guarded secondary to pain, [antalgic gait noted] point tenderness along bilateral SIs with positive bilateral Cristian's, Juan's, Gaenslen's, compression and distraction exam Neurological: Speech clear, no gross sensory deficit Has patient had previous pain injection?: Yes Percent improvement in pain since last injection: 90% initially Conservative treatment options previously tried: Home exercise plan Length of treatment: Longer than 12 weeks Meds Home Medications and Allergies Home Medications ?Medication ?Instructions ?Recorded ?Confirmed ?Type duloxetine 30 mg capsule,delayed 30 mg PO BID Anxiety 03/17/18 05/24/25 History release gabapentin 300 mg capsule 600 mg PO HS Pain 01/16/22 05/24/25 History cetirizine 10 mg tablet (Zyrtec) 10 mg PO DAILY 02/18/24 05/24/25 History hydrochlorothiazide 25 mg tablet 25 mg PO DAILY 02/18/24 05/24/25 History losartan 100 mg tablet 100 mg PO DAILY 02/18/24 05/24/25 History metoprolol succinate 50 mg 50 mg PO DAILY 02/18/24 05/24/25 History tablet,extended release 24 hr omeprazole 10 mg capsule,delayed 10 mg PO DAILY 02/18/24 05/24/25 History release ondansetron 4 mg disintegrating 4 mg PO Q8H PRN nausea and 02/18/24 05/24/25 Rx tablet vomiting #12 tabs rosuvastatin 20 mg tablet 20 mg PO HS 02/18/24 05/24/25 History semaglutide 2 mg/dose (8 mg/3 mL) 2 mg SQ WEEKLY 02/18/24 05/24/25 History subcutaneous pen injector (Ozempic) New Prescriptions to Start Prescriptions: Allergies Allergy/AdvReac Type Severity Reaction Status Date / Time ceftriaxone (From Rocephin) Allergy Intermediate Anaphylaxis Verified 01/23/22 08:32 suture Allergy Mild Redness of Verified 01/23/22 08:32 Skin Assessment and Plan *Assessment and plan (1) Bilateral sacroiliitis: Status: Acute Category: Medical Code(s): M46.1 - Sacroiliitis, not elsewhere classified (2) Bilateral hip pain: Status: Acute Category: Medical Code(s): M25.551 - Pain in right hip; M25.552 - Pain in left hip (3) Chronic back pain: Status: Acute Category: Medical Code(s): M54.9 - Dorsalgia, unspecified; G89.29 - Other chronic pain Plan Patient did have a successful diagnostic bilateral SI injections with 90% improvement. I did review over with the patient regarding her chronic pain across her low back and bilateral hips that it does appear to be chronic sacroiliitis and with the diagnostic injection she does seem to be a beneficial candidate for therapeutic injections at the same location. Risk and benefits were discussed with these injections with the addition of the dexamethasone and she would like to proceed forward with this plan of care. Patient has tried and failed conservative therapy including oral medication, heat and ice, topicals, physical therapy and chiropractor therapy and continued at home stretching exercise for longer than 12 weeks. Patient does have chronic low back pain that is gone on for longer than 6 months. Patient will be scheduled for therapeutic bilateral SI injections under fluoroscopy. We will plan on injecting less than 1.5 mL of solution and if she does get significant relief may be a candidate of SI fusion later. Patient agrees with this plan of care. Patient has been instructed to contact the clinic with any concerns before the next appointment. Dr. Park has reviewed this note and agrees with this plan of care. This note was dictated using voice recognition software and make contain errors or omissions. All injections are used with Lidocaine, Bupivacaine and dexamethasone. Occasionally urine drug screen is needed to verify patient's compliance with our office pain contract. This is ordered based off specific treatments related to chronic pain with the potential to abuse certain medications.
[2025-06-01 11:19] VITALS: BP 173/99; PULSE 81; RESP 18; O2SAT 97; BMI 34.2
== END 2025-06-01 23:59 | disposition home or self-care (01) ==
LOC: SC.PAIN 10:43
PROVIDERS: PCP Family Medicine; Visit Provider Nurse Practitioner Family
DX: M25.551 Pain in right hip (principal); M25.552 Pain in left hip; M46.1 Sacroiliitis, not elsewhere classified; G89.29 Other chronic pain; Z79.899 Other long term (current) drug therapy; Z79.891 Long term (current) use of opiate analgesic
CPT/HCPCS: 99212; G0463

== ENCOUNTER 2025-06-28 11:56 | Day surgery (SDC) | payer MEDICARE, SELFPAY ==
[2025-06-28 12:08] VITALS: BP 132/75; PULSE 101; RESP 18; O2SAT 97; BMI 33.9
--- NOTE | 2025-06-28 12:24 | P.PCN_ITS ---
Procedure Date: 06/28/25 Time: 12:00 Anesthesiologist:: Tony Hart CRNA Complications:: None Pre-procedure Diagnosis:: Bilateral sacroiliitis Post-procedure Diagnosis:: Same Indications for Procedure:: Patient is a pleasant 70-year-old female who comes our clinic today for bilatera l sacroiliac joint injection of cortisone local anesthetic. Patient describes low lumbar back pain off the midline bilaterally. Bilateral posterior hip pain. Difficulty transitioning from sitting to standing. Difficulty with ambulation. She rates her pain 7/10. Procedure Details:: Procedure: Bilateral sacroiliac joint injections under fluoroscopy Informed consent was obtained and the risks and benefits of the procedure were explained to the patient.~ The patient was taken to the procedure room and noninvasive monitors were placed including a noninvasive blood pressure cuff and pulse oximeter.~ The patient was placed prone on the procedure table. Both hips were cleansed using Betadine as a cleansing solution. C-arm fluoroscopy was used to view the right sacroiliac joint.~ The skin and subcutaneous tissues were anesthetized using lidocaine 1.5% and a 25-gauge needle.~ After this, a 22-gauge spinal needle was inserted under fluoroscopic guidance into the inferior aspect of the right sacroiliac joint.~ Omnipaque dye was injected and good spread was seen throughout the joint.~ After this, approximately 5 mL of bupivacaine, 0.25% and dexamethasone 5 mg was incrementally injected into the right sacroiliac joint. We then moved to the left sacroiliac joint.~ The skin and subcutaneous tissues were anesthetized using lidocaine 1.5% and a 25-gauge needle.~ After this, a 22- gauge spinal needle was inserted under fluoroscopic guidance into the inferior aspect of the left sacroiliac joint.~ Omnipaque dye was injected and good spread was seen throughout the joint. After this, approximately 5 mL of bupivacaine, 0.25% and dexamethasone 5 mg was incrementally injected into the left sacroiliac joint.~ The patient tolerated the procedure well with no complications. The patient was observed in the Pain Clinic and then was discharged home neurologically intact. Plan and Disposition:: Patient was discharged without incident.
[2025-06-28 12:27] VITALS: BP 131/73; PULSE 97; RESP 18; O2SAT 96
[2025-06-28] MEDS: BUPIVACAINE 0.25% 10ML INJ 25 MG IJ (12:41)
[2025-06-28] MEDS: LIDOCAINE 1% 5ML PF VIAL 5 ML (12:41)
[2025-06-28] MEDS: DEXAMETHASONE 10MG/ML 1ML VIAL 10 MG (12:42)
[2025-06-28 12:46] VITALS: BP 132/75; PULSE 101; RESP 18; O2SAT 97
[2025-06-28 12:47] VITALS: BP 132/75; PULSE 101; RESP 18; O2SAT 97
== END 2025-06-28 12:27 | disposition home or self-care (01) ==
PROVIDERS: PCP Family Medicine; Visit Provider Nurse Anesthetist, Certified Registered
DX: M46.1 Sacroiliitis, not elsewhere classified (principal); G89.29 Other chronic pain; E11.9 Type 2 diabetes mellitus without complications; F32.A Depression, unspecified; E78.5 Hyperlipidemia, unspecified; I10 Essential (primary) hypertension; Z88.1 Allergy status to other antibiotic agents; Z91.09 Other allergy status, other than to drugs and biological substances; Z79.85 Long-term (current) use of injectable non-insulin antidiabetic drugs; Z79.899 Other long term (current) drug therapy
CPT/HCPCS: 64450; J0665; J1100; J2003

== ENCOUNTER 2025-07-05 09:09 | Outpatient (CLI) | payer MEDICARE, SELFPAY ==
--- OUTSIDE RECORDS SUMMARY | 2024-10-04 10:00 | XMS_ITS ---
Author Organization [facility] Address [address] [place] [id number] Care Team Providers Care Injection Molding Engineer Name Role Phone Mike Palacios Primary Care Provider Radha Salmon Unavailable [phone] Allergies Allergen (clinical drug ingredient) Drug/Non Drug [...] review and pick correct strength-formula tion from [employer] options. If intended option is not shown, discontinue and re-order from Quick Search* 10/23/2017 Active Vital Signs Weight 222.8 lbs 10/04/2024 Blood pressure systolic 120 mm Hg 10/04/20 24 Blood pressure diastolic 90 mm Hg 024 Heart Rate 81 /min 10/04/2024 Height 66 in 10/04/2024 BMI 35.96 kg/m2 10/04/2024 Encounters Encounter Location Date Provider Diagnosis [facility] [address] [place], [place] [id number] 10/04/2024 Radha Salmon Fungal skin infectio n [...] Months with lab s and prn, Reason: Progress Notes * NASIM VALDEZDOB:1955 ( 70 yo F)Acc No.[id number]:10/04/2024 Progress Notes Patient: LAUREN CHAHALNA Provider: ANDREW Hu:1955 A ge:69 Y S ex:Female Date:10/04/2024 Address:[address], [id number] Pcp:Mike Palacios Subjective: * Chief Complaints: * [...] Depression, OA, Hyperlipidemia, 2nd digit on left thqg-tcbahshp-qcdukzzi [facility], Chronic Meningitis. * Surgical History: H ysterectomy [...] B lood Pressure Elevated 12/2010, Sinus Infection- [place] [facility] 07/15/2012, Bowel Infection- [facility] 04/2014, Nausea, Headache- [facility] ER 2019, Chronic Meningitis- [facility] 10/13/2020. * Family History: F ather: [...] *Please review and pick correct strength-formulation from [employer]an options. If intended option is not shown, [...] *Please review and pick correct strength-formulation from Zuujitspan options. If intended option is not shown, [...] * Images: Billing Information: * Visit Code: 85975 Office Visit, Est Pt., Level 3. * Procedure Codes: 09272 PULSE OX. G2211 Complex e/m visit add on. * Electronic signature of Kylee Salmon APRN on 07/05/2025 at 09:32 AM EDT Sign off status: Pending * Provider: ANDREW Hu Date: 1 12/05/2023 Generated for Salvador foley/Ryann/Karlyitting on: 0 07/05/2025 09:32 AM EDT History and Physical Notes * [...]
--- OUTSIDE RECORDS SUMMARY | 2025-04-21 10:15 | XMS_ITS ---
Author Organization [facility] Address [address] [place] [phone] Care Team Providers Care Linux Security Administrator Name Role Phone Mike Palacios Primary Care Provider [phone] Radha Salmon Unavailable [phone] Allergies Allergen (clinical drug ingredient) Drug/Non Drug Allergy documented on EMR Reaction Allergy Type Onset Date Status MONSETR LOPEZ (uncoded) hives Allergy Active Medicinal cephalosporin [...] review and pick correct strength-formula tion from adhoclabs options. If intended option is not shown, discontinue and re-order from Quick Search* 10/23/2017 Active DIABETIC TESTING SUPPLIES TO TEST BID PRN *Please review for potential replacement for e-prescription and drug interaction check* Active CareTouch CPAP & BIPAP Hose 1 DIRECTED *Please review and pick correct strength-formula tion from adhoclabs options. If intended option is not shown, discontinue and re-order from Quick Search* 01/24/2022 Active ZyrTEC Allergy 10 MG 1 tab(s) orally onc e a day Active ProAir Digihaler 108 (90 Base) MCG/ACT 2 puff(s) inhaled every 6 hours; Duration: 30 day(s) 09/01/2020 Active Vital Signs Weight 214.2 lbs 04/21/2025 Blood pressure systolic 130 mm Hg 04/21/20 25 Blood pressure diastolic 76 mm Hg 025 Heart Rate 83 /min 04/21/2025 Height 66 in 04/21/2025 BMI 34.57 kg/m2 04/21/2025 Encounters Encounter Location Date Provider Diagnosis [facility] [address] [place] [phone] 04/21/2025 Mike Palacios Cervical adenopathy R59.0 ; [...] * NASIM MARTINEZDOB:1955 ( 70 yo F)Acc No.[id number]:04/21/2025 Progress Notes Patient: NASIM CHAHAL Provider: Mike Palacios M.D. :1955 A ge:69 Y S ex:Female Date:04/21/2025 Address:[facility] [address], [id number] Subjective: * [...] no R victor m. n o H onel. G ASTROENTEROLOGY: Positive for e ating and [...] Depression, OA, Hyperlipidemia, 2nd digit on left cdbu-bxdmogvt[facility]syqlktaq [facility], Chronic Meningitis. * Surgical History: H [...] B lood Pressure Elevated 12/2010, Sinus Infection- [place] [facility] 07/15/2012, Bowel Infection- [facility] 04/2014, Nausea, Headache- [facility] ER 2019, Chronic Meningitis- [facility] ER 10/13/2020. * Family History: F ather: [...] *Please review and pick correct strength-formulation from adhoclabs options. If intended option is not shown, [...] *Please review and pick correct strength-formulation from adhoclabs options. If intended option is not shown, [...] * Images: Billing Information: * Visit Code: 51672 Office Visit, Est Pt., Level 3. * Procedure Codes: G2211 Complex e/m visit add on. 1036F TOBACCO NON-USER. G8783 BP SCR PRFRM RCMDD DEFIND SCR INTVL. G8752 MOST RECENT SYSTOLIC BP < 140MM HG. G8754 MOST RECENT DIASTOLIC BP < 90MM HG. * Electronic signature of Mike Palacios MD on 07/05/2025 at 09:31 AM EDT Sign off status: Pending * Provider: Mike Palacios M.D. Date: 0 04/21/2025 Generated for Printi ng/Fagunnarg/eTransmitting on: 0 07/05/2025 09:31 AM EDT History and Physical Notes * [...]
--- OUTSIDE RECORDS SUMMARY | 2025-04-28 05:45 | XMS_ITS ---
Author Organization [facility] Address [address] [place] [id number] Care Team Providers Care Finisher Accordion Name Role Phone Mike Palacios Primary Care Provider Radha Salmon Unavailable [phone] Allergies Allergen (clinical drug ingredient) Drug/Non Drug [...] phos 206, alt 51 Performing Lab: Notes/Report: Test performed by [facility] [employer] [address] [place] [address] , [address], [place] [address] Dustin Sykes MD, Filteration Operator CLIA: [id number] Sodium 144 135-145 mmol/L Potassium 4.5 3.5-5.3 [...] 39 Performing Lab: Notes/Report: Test performed by [facility] [address] [facility] , [address], [place] [address] Dustin Sykes MD, Filteration Operator CLIA: [id number] Cholesterol 165 <200 mg/dL Triglycerides 189 <150 [...] Last Name Philip Referring Provider Speciality Family [facility] humberto Referred Provider [place] Referred Provider Specialty Pain Managem ent General Notes Jeana Khan 2024 02:13:02 PM > faxed to [facility] Pain Management Referral Priority Routine REASON [...] Problem Status W/U Status Risk Notes Problem Arthropathy of lumbar facet joint (disorder) (553284067) Facet arthropathy , lumbar (M47.816) Active confirmed Problem Body mass index 30.00 to 34.99 (037277641127785) BMI 34.0-34.9,a dult (Z68.34) Active confirmed Vital Signs Weight 215.8 lbs 04/28/2025 Blood pressure systolic 134 mm Hg 04/28/20 25 Blood pressure diastolic 94 mm Hg 025 Heart Rate 85 /min 04/28/2025 Height 66 in 04/28/2025 BMI 34.83 kg/m2 04/28/2025 Encounters Encounter Location Date Provider Diagnosis [facility] 12[facility] [address] [phone] 04/28/2025 R Chris Palacios Adult general medica l examination Z00.00 ; Cervical adenopathy R59.0 ; T2DM (type 2 diabetes mellitus) E11.9 ; Hypertension I10 ; Hyperlipidemia E78.5 ; Facet arthropathy, lumbar M47.816 ; Depression F32.9 ; Anxiety F41.9 ; Chronic mixed headache syndrome G44.89 ; GERD (gastroesophageal reflux disease) K21.9 ; Obstructive sleep apnea G47.33 ; Chronic bronchitis J42 and BMI 34.0-34.9,adult Z68.34 Assessments Encounter Date Diagnosis (ICD Code) Assessment [...] 04/28/2025 Facet arthropathy, lumbar (ICD-10 - M47.816) 04/28/2025 Depression (ICD-10 - F32.9) 04/28/2025 Anxiety (ICD-10 - F41.9) 04/28/2025 Chronic mixed headache syndrome (ICD-10 - G44.89) 04/28/2025 GERD (gastroesophageal reflux disease) (ICD-10 - K21.9) 04/28/2025 Obstructive sleep apnea (ICD-10 - G47.33) 04/28/2025 Chronic bronchitis (ICD-10 - J42) 04/28/2025 BMI 34.0-34.9,adult (ICD-10 - Z68.34) Plan Of Treatment Medication Medication Name Sig [...] * NASIM VALDEZDOB:1955 ( 70 yo F)Acc No.[id number]:04/28/2025 Annual Wellness Visit Patient: NASIM CHAHAL Provider: Mike Palacios M.D. :1955 A ge:70 Y S ex:Female Date:04/28/2025 Address:[address] [place] [address], [id number] Subjective: * Chief Complaints: * 1 . check up with labs and Annual Wellness Visit. 2. Due for diabetic eye exam. * HPI: H PI: Patient is here today for a check up with labs and a Medicare Annual Wellness Visit. Pt is fasting today. Pt sts that she has no new concerns or complaints. L ower back: She has a longstanding history of [...] Depression, OA, Hyperlipidemia, 2nd digit on left ynil-wegdpjcp-pblfhdpj by [facility], Chronic Meningitis, Neuropathic dermatitis - [facility] * Surgical History: H ysterectomy , Cholecystectomy , Knee , Fissure Repair , Excision of lumbar synovial cyst - Dr. Ewing 11/2006, RT CTS- Dr. Ewing 11/2006, Nasal 03/2008, Tooth Pulled 07/23/2011, Colon Resection for Tics , Back- [facility] 09/13/2014, LT Thumb Joint Replacement 10/05/2019, C-scope/ Polyps/ [facility] . * Hospitalization/Major Diagno stic Procedure: B lood Pressure Elevated 12/2010, Sinus Infection- [facility] 07/15/2012, Bowel Infection- [facility] 04/2014, Nausea, Headache- [facility] ER 2019, Chronic Meningitis- [facility] ER 10/13/2020. * Family History: F [...] mall problems.? Assessment: * Assessment: 1. A dult general medical examination - Z00.00 (Primary) 2 . C ervical adenopathy - R59.0 3 . T 2DM (type 2 diabetes mellitus) - E11.9 4 .?Hypertension - I10 5 . H yperlipidemia - E78.5 6 . F acet arthropathy, lumbar - M47.816 7 . D epression - F32.9 8 .?Anxiety - F41.9 9 . C hronic mixed headache syndrome - G44.89 1 0. G ERD (gastroesophageal reflux disease) - K21.9 1 1. O bstructive sleep apnea - G47.33 1 2. C hronic bronchitis - J42 1 3. B [place] 34.0-34.9,adult - Z68.34 Plan: * Treatment: Value Reference Range w [...] 0439 ANNUAL WELLNESS VST; PPS SUBSQT VST, G2211 Complex e/[place], [address] GLYCATED HEMOGLOBIN TEST, Modifiers: QW , 1090F PRES/ABSN URINE INCON ASSESS, 3288F FALL RISK ASSESSMENT DOCD, 1170F FXNL STATUS ASSESSED, 1159F MED LIST DOCD IN RCRD, 1003F LEVEL OF ACTIVITY ASSESS, 1036F TOBACCO NON-USER, 3017F COLORECTAL CA SCREEN DOC REV, G9899 Scrn nba perf rslts doc, 465[address] CBC WITH AUTO DIFF, 1125F AMNT PAIN NOTED PAIN PRSNT, 3044F HG A1C LEVEL LT 7.0%, G8950 PREHTN/HTN BP DOC INDCD F/U DOC, G8752 MOST RECENT SYSTOLIC BP < 140MM HG, G8755 MOST RECENT DIASTOLIC BP >= 90MM HG * Preventive Medicine: Counseling: E motional health: [...] * Images: Billing Information: * Visit Code: 16662 Office Visit, Est Pt., Level 3. Modifiers: 25 * Procedure Codes: G0439 ANNUAL WELLNESS VST; PPS SUBSQT VST. G2211 Complex e/[place]. [address] GLYCATED HEMOGLOBIN TEST. Modifiers: QW 1090F PRES/ABSN URINE INCON ASSESS. 3288F FALL RISK ASSESSMENT DOCD. 1170F FXNL STATUS ASSESSED. 1159F MED LIST DOCD IN RCRD. 1003F LEVEL OF ACTIVITY ASSESS. 1036F TOBACCO NON-USER. 3017F COLORECTAL CA SCREEN DOC REV. G9899 Scrn [place]ts [place]. 52613 CBC WITH AUTO DIFF. 1125F AMNT PAIN NOTED PAIN PRSNT. 3044F HG A1C LEVEL LT 7.0%. G8950 PREHTN/HTN BP DOC INDCD F/U DOC. G8752 MOST RECENT SYSTOLIC BP < 140MM HG. G8755 MOST RECENT DIASTOLIC BP >= 90MM HG. * Electronic signature of Mike Palacios MD on 07/05/2025 at 09:31 AM EDT Sign off status: Pending * Provider: Mike Palacios M.D. Date: 0 04/28/2025 Generated for Printi ng/Faxing/eTransmitting on: 0 07/05/2025 09:31 AM EDT History [...]
--- OUTSIDE RECORDS SUMMARY | 2025-06-02 10:00 | XMS_ITS ---
Author Organization [facility] Address [address] [facility] [address] [place] [id number] Care Team Providers Care Slot Machine Mechanic Name Role Phone Mike Palacios Primary Care Provider Radha Salmon Unavailable [phone] Allergies Allergen (clinical drug ingredient) Drug/Non Drug Allergy documented on EMR Reaction Allergy Type Onset Date Status MONSTER LOPEZ (uncoded) hives Allergy Active Medicinal cephalosporin and acting as antibacterial agent (FN) Cephalosporins anaphylaxis Drug Allergy Active REASON FOR VISIT blood pressure high Medications Medication SIG (Take, Route, Frequency, Duration) Notes Start Date End Date Status hydroCHLOROthiazide 25 MG 1 cap(s) orall y once a day Active Mounjaro 7.5 MG/0.5ML INJECT 7.5 MG (0.5 ML) SUBCUTANEOUSLY ONCE WEEKLY Subcutaneous once weekly; Duration: 90 days Active Losartan Potassium 100 MG 1 tab(s) orall y Once a day Active Diflucan 150 MG 1 tablet Orally; Duration: 7 day(s) 10/04/2024 Not-Taking HYDROcodone-Acetaminophen 5-325 MG 1 tab(s) orally once a day as needed 04/28/2025 Active Gabapentin 300 MG 1 cap(s) qam, 3 at bedtime orally twice a day; Duration: 30 days 05/05/2025 Active DULoxetine HCl 60 mg TAKE ONE CAPSULE BY MOUTH EVERY DAY; Duration: 90 Active Rosuvastatin Calcium 20 mg take 1 tablet orally once a day; Duration: 90 days Active Nizoral Psoriasis Shampoo/Cond 3 % 1 application as needed Externally Three times a Week; Duration: 30 days 10/04/2024 Active Cyclobenzaprine HCl 5 MG 1 tablet at bed time as needed Orally tid prn; Duration: 30 day(s) 07/06/2024 Active Ubrelvy 100 MG 1 tablet may take second dose at least 2 hours after first dose as needed Orally Once a day 07/08/2024 Active Nizoral 1 % 1 application Externally 3 x weekly; Duration: 30 days 07/06/2024 Active Nurtec 75 MG 1 tablet on the tong ue and allow to dissolve Orally qd prn; Duration: 30 days 07/06/2024 Active Aspirin Low Dose 81 MG 1 tab(s) chewed o nce a day Active DIABETIC TESTING SUPPLIES TO TEST BID PRN Active EPINEPHrine 0.3 MG/0.3ML INJECT THE CONT ENTS OF 1 AUTO-INJECTOR INTRAMUSCULARLY ONCE NEEDED FOR ANAPHYLAXIS REACTION; Duration: 1 Active CareTouch CPAP & BIPAP Hose 1 AUTO TITRATING DIRECTED 10/23/2017 Active Xanax 0.5 MG 1 tab(s) orally two times a day as needed 01/27/2023 Active Esomeprazole Magnesium 20 MG 1 cap(s) orally once a day OTC Active Trelegy Ellipta 100-62.5-25 MCG/ACT 1 puff(s) inhaled once a day; Duration: 30 days 01/27/2023 Active Albuterol Sulfate HFA 108 (90 Base) MCG/ACT 1 puff(s) inhaled four times a day; Duration: 30 day(s) Active ZyrTEC Allergy 10 MG 1 tab(s) orally onc e a day Active CareTouch CPAP & BIPAP Hose 1 DIRECTED 01/24/2022 Active ProAir Digihaler 108 (90 Base) MCG/ACT 2 puff(s) inhaled every 6 hours; Duration: 30 day(s) 09/01/2020 Active amLODIPine Besylate 5 MG 1 tablet Orally Once a day; Duration: 30 days 06/02/2025 Active Vital Signs Weight 215.6 lbs 06/02/2025 Blood pressure systolic 150 mm Hg 06/02/20 25 Blood pressure diastolic 86 mm Hg 025 Heart Rate 86 /min 06/02/2025 Height 66 in 06/02/2025 BMI 34.79 kg/m2 06/02/2025 Encounters Encounter Location Date Provider Diagnosis [facility] [address] [facility] [address] [place] [id number] 06/02/2025 Mike Palacios Hypertension I10 Assessments Encounter Date Diagnosis (ICD Code) Assessment Notes Treatment Notes Treatment Clinical Notes Section Notes 06/02/2025 Hypertension (ICD-10 - I10) Plan Of Treatment Medication Medication Name Sig Start Date Stop Date Notes hydroCHLOROthiazide 25 MG 1 cap(s) orally once a day Losartan Potassium 100 MG 1 tab(s) orally Once a day Metoprolol Succinate ER 50 mg TAKE ONE T ABLET BY MOUTH EVERY DAY amLODIPine Besylate 5 MG 1 tablet Orally Once a day; Duration: 30 days 06/02/2025 Next Appt Details Follow Up: 2 Weeks,3 Weeks, Reason: Progress Notes * NASIM MARTINEZDOB:1955 ( 70 yo F)Acc No.[id number]:06/02/2025 Progress Notes Patient: NASIM CHAHAL Provider: Mike Palacios M.D. :1955 A ge:70 Y S ex:Female Date:06/02/2025 Address:[address] [place] [address], [place], [id number] Subjective: * Chief Complaints: * 1 . Blood pressure high. * HPI: C ardiology: 70 year old female presents with c/o Blood Pressure Elevated? c /o elevated BP. Pt sts her BP has been consistently high for about 3 weeks now. Pt sts that 2 weeks ago she was at the pain clinic and sts they would not let her leave until it lowered. Pt sts her dystolic number has not been under 100. She does not like taking the metoprolol. She feels it causes excessive fatigue. She has had more frequent headaches. No chest pain, palpitations, swelling, dizziness, vision changes. * ROS: D ERMATOLOGY: no R victor m. n o H noel. G ASTROENTEROLOGY: no N ausea. n o V omiting. n o D iarrhea.? U ROLOGY: no D ifficulty urinating. n o B lood in urine. * Medical History: A llergies, Asthma, Hypertension, Diverticulosis, Anxiety, YOVANY, Lumbar spinal stenosis with chronic pain, Depression, OA, Hyperlipidemia, 2nd digit on left cmoo-edigjiok-idfgydgr by [facility] in [facility], Chronic Meningitis, Neuropathic dermatitis - followed [...] B lood Pressure Elevated 12/2010, Sinus Infection- [facility] 07/15/2012, Bowel Infection- [facility] 04/2014, Nausea, Headache- [facility] 2019, Chronic Meningitis- [facility] 10/13/2020. * Family History: F ather: [...] cap(s) orally once a day , Taking Nizoral 1 % [...] Externally Three times a Week , Taking Metoprolol Succinate ER 50 mg Tablet Extended Release 24 Hour TAKE ONE TABLET BY MOUTH EVERY DAY , Taking DULoxetine HCl 60 mg Capsule Delayed Release Particles TAKE ONE CAPSULE BY MOUTH EVERY DAY , Taking Rosuvastatin Calcium 20 mg Tablet take 1 tablet orally once a day , Taking HYDROcodone-Acetaminophen 5-325 MG Tablet 1 tab(s) orally once a day as needed , Taking Gabapentin 300 MG Capsule 1 cap(s) qam, 3 at bedtime orally twice a day , Taking Mounjaro 7.5 MG/0.5ML Solution Auto-injector INJECT 7.5 MG (0.5 ML) SUBCUTANEOUSLY ONCE WEEKLY Subcutaneous once weekly , Taking Losartan Potassium 100 MG Tablet 1 tab(s) orally Once a day , Not-Taking Diflucan 150 MG Tablet 1 tablet Orally , Medication List reviewed and reconciled with the patient * Allergies: K ILZ, PAINT: hives, Cephalosporins: anaphylaxis - Allergy. Objective: * Vitals: W t: 215.6, Temp: 98.4, BP: 150/86, HR: 86, Nurse: thuy, Ht: 66, BMI:34.79. * Examination: G eneral Examination: General Appearance: N AD. H eart: R SR. L ungs:?clear to auscultation. E xtremities: n o leg edema. Assessment: * Assessment: 1. H ypertension - I10 (Primary) Plan: * Treatment: * Procedure Codes: G 2211 Complex e/m visit add on, 1036F TOBACCO NON-USER, G8950 PREHTN/HTN BP DOC INDCD F/U DOC, G8753 MOST RECENT SYSTOLIC BP >= 140MM HG, G8754 MOST RECENT DIASTOLIC BP < 90MM HG * Follow Up: 2 Weeks,3 Weeks * Images: Billing Information: * Visit Code: 18869 Office Visit, Est Pt., Level 3. * Procedure Codes: G2211 Complex e/m visit add on. 1036F TOBACCO NON-USER. G8950 PREHTN/HTN BP DOC INDCD F/U DOC. G8753 MOST RECENT SYSTOLIC BP >= 140MM HG. G8754 MOST RECENT DIASTOLIC BP < 90MM HG. * Electronic signature of Mike Palacios MD on 07/05/2025 at 09:31 AM EDT Sign off status: Pending * Provider: Mike Palacios M.D. Date: 0 06/02/2025 Generated for Salvador foley/Ryann/Karlyitting on: 0 07/05/2025 09:31 AM EDT History and Physical Notes * HPI (History of Present Illness) Category Sub-Category Detail Notes Category Not es Cardiology Blood Pressure Elevated c/o elevated BP. Pt sts her BP has been consistently high for about 3 weeks now. Pt sts that 2 weeks ago she was at the pain clinic and sts they would not let her leave until it lowered. Pt sts her dystolic number has not been under 100. She does not like taking the metoprolol. She feels it causes excessive fatigue She has had more frequent headaches. No chest pain, palpitations, swelling, dizziness, vision changes. Examination Category Sub-Category Detail Notes Category Not es General Examination Heart: RSR Lungs: clear to auscultatio n Extremities: no leg edema General Appearance: NAD
--- OUTSIDE RECORDS SUMMARY | 2025-06-13 06:49 | XMS_ITS ---
Author Organization [facility] Address [address] [facility] [address] [facility] [address] [place] [id number] Care Team Providers Care Castings Trimmer Name Role Phone Mike Palacios Primary Care Provider [phone] SalmonEdgardo badilloine Unavailable [phone] REASON FOR VISIT due dexa Encounters Encounter Location Date Provider Diagnosis [place] [address] [facility] [address] [facility] [address] [place] [id number] 06/13/2025 Mike Palacios Encounter for screen ing for osteoporosis Z13.820 Assessments Encounter Date Diagnosis (ICD Code) Assessment Notes Treatment Notes Treatment Clinical Notes Section Notes 06/13/2025 Encounter for screening for osteoporosis (ICD-10 - Z13.820) Plan Of Treatment No Information Progress Notes * NASIM VALDEZDOB:1955 ( 70 yo F)Acc No.[id number]:06/13/2025 Patient: LAUREN CHAHALNA :1955 A ge:70 Y S ex:Female Address:[place] [address] Subjective: * Chief Complaints: * D ue dexa * Medical History: * Surgical History: * Hospitalization/Major Diagno stic Procedure: * Medications: Objective: * Vitals: * Physical Examination: Assessment: * Assessment: 1. E ncounter for screening for osteoporosis - Z13.820 (Primary) Plan: * Treatment: * Procedure Codes: * true * Date: Generated for Printi ng/Faxing/eTransmitting on: 0 07/05/2025 09:31 AM EDT
--- NOTE | 2025-07-05 09:18 | XR_ITS ---
FINAL REPORT CLINICAL HISTORY: SCREENING COMPARISON: 02/12/2022 FINDINGS: Using L1-4, the bone mineral density of the spine is 1.243 g/cm2, corresponding to T-score of 1.8, within normal limits. Previously was 1.236 with a T-score of 1.7. Using the left hip, the bone mineral density of the femoral neck is 0.901 g/cm2, corresponding to a T-score of 0.5, within normal limits. Previously was 0.998 with a T-score of 1.3. Using the right hip, the bone mineral density of the femoral neck is 0.950 g/cm2, corresponding to a T-score of 0.9, within normal limits. Previously was 0.952 with a T-score of 0.9. FRAX not reported because all T-scores at or above -1.0. NOTE: T-score: Standard deviation compared with peak bone mass of young adult mean. *Following the recommendations of the International Society of Bone densitometry, classification of hip BMD is based on the lower of two T-scores; total hip or femoral neck. IMPRESSION: Normal bone mineral density of the lumbar spine and hips. Reviewed, Interpreted and Dictated by Michael Mejia MD Transcribed by Lisha Mann Authenticated and [facility]
--- OUTSIDE RECORDS SUMMARY | 2025-07-05 09:32 | XMS_ITS | Patient Health Record ---
Author Organization [facility] Address [address] [place] [phone] Care Team Providers Care Barge Worker Name Role Phone Mike Palacios Primary Care Provider Radha Salmon Unavailable [phone] Danielle Montalvo Unavailable [phone] Allergies Allergen (clinical drug ingredient) Drug/Non Drug [...] 51 Performing Lab: Notes/Report: Test performed by [facility] [address] [place] [address] , [address], [place] [address] Dustin Sykes MD, Nail Assembly Machine Operator CLIA: [id number] Sodium 144 135-145 mmol/L Potassium 4.5 3.5-5.3 [...] 39 Performing Lab: Notes/Report: Test performed by [facility] [address] [place] [address] , [address], [place] [address] Dustin Sykes MD, Nail Assembly Machine Operator CLIA: [id number] Cholesterol 165 <200 mg/dL Triglycerides 189 <150 [...] Duration) Notes Start Date End Date Status amLODIPine Besylate 5 MG 1 tablet Orally Once a day; Duration: 30 days Active Cyclobenzaprine HCl 5 MG 1 tablet [...] cap(s) orally once a day OTC Active Mounjaro 7.5 MG/0.5ML INJECT 7.5 MG (0.5 ML) SUBCUTANEOUSLY ONCE WEEKLY Subcutaneous once weekly; Duration: 90 days Active HYDROcodone-Acetaminophen 5-325 MG 1 tab(s) orally once a day as needed 04/28/2025 Active Gabapentin 300 MG 1 cap(s) qam, 3 at bedtime orally twice a day; Duration: 30 days 05/05/2025 Active DIABETIC TESTING SUPPLIES TO TEST BID PRN Active EPINEPHrine 0.3 MG/0.3ML INJECT THE CONT ENTS OF 1 AUTO-INJECTOR INTRAMUSCULARLY ONCE NEEDED FOR ANAPHYLAXIS REACTION; Duration: 1 Active Rosuvastatin Calcium 20 mg take 1 tablet orally once a day; Duration: 90 days Active CareTouch CPAP & BIPAP Hose 1 AUTO TITRATING DIRECTED 10/23/2017 Active Xanax 0.5 MG 1 tab(s) orally two times a day as needed 01/27/2023 Active Diflucan 150 MG 1 tablet Orally; Duration: 7 day(s) 10/04/2024 Not-Taking Trelegy Ellipta 100-62.5-25 MCG/ACT 1 puff(s) inhaled [...] 6 hours; Duration: 30 day(s) 09/01/2020 Active hydroCHLOROthiazide 25 MG 1 cap(s) orall y once a day Active Losartan Potassium 100 MG 1 tab(s) orall y Once a day Active DULoxetine HCl 60 mg TAKE ONE CAPSULE BY MOUTH EVERY DAY; Duration: 90 Active Nizoral Psoriasis Shampoo/Cond 3 % 1 application as needed Externally Three times a Week; Duration: 30 days 10/04/2024 Active Immunizations Vaccine Route Administration Date Status [...] Status Risk Notes Problem Gastroesophageal reflux disease (620495060) GERD (gastroesophageal reflux disease) (K21.9) Active confirmed Problem Hyperglycemia (92669897) Hyperglycemia (R73.9) Active confirmed Problem Hypertension (54006389) HTN (hypertension) (I10) Active confirmed Problem Hyperlipidemia (50893242) Hyperlipidemia (E78.5) Active confirmed Problem Arthropathy of lumbar facet joint (disorder) (066051282) Facet arthropathy, lumbar (M47.816) Active confirmed Problem Anxiety (39347375) Anxiety (F41.9) Active confi rmed Problem Hypertension (46072774) Hypertension (I10) Active confirmed Problem Environmental allergy (916065789) Environmental allergies (Z91.048) Active confirmed Problem Obstructive sleep apnea (23930379) Obstructive sleep apnea (G47.33) Active confirmed Problem Chronic meningitis (39020452) Chronic meningitis (G03.1) Active confirmed Problem Chronic pain syndrome (247476103) Chronic pain syndrome (G89.4) Active confirmed Problem Chronic maxillary sinusitis (20925136) Chronic maxillary sinusitis (J32.0) Active confirmed Problem Depression (347723659) Depression (F32.9) Active confirmed Problem Chronic bronchitis (12829300) Chronic bronchitis (J42) Active confirmed Problem Type II diabetes mellitus without complication (914565362) T2DM (type 2 diabetes mellitus) (E11.9) Active confirmed Problem Headache (82515651) Headache syn drome (G44.89) Active confirmed Problem Osteoarthritis of knee (184243844) Primary osteoarthritis of both knees (M17.0) Active confirmed Problem Carpal tunnel syndrome of left wrist (234905132779790) Carpal tunnel syndrome of left wrist (G56.02) Active confirmed Problem Body mass index 30.00 to 34.99 (226578392796505) BMI 31.0-31.9,adult (Z68.31) Active confirmed Problem Body mass index 30.00 to 34.99 (676021830240695) BMI 34.0-34.9,adult (Z68.34) Active confirmed Problem Arthropathy (468379177) Arthritis involving multiple sites (M12.9) Active confirmed Problem Vitamin D deficiency (67218020) Low vitamin D level (E55.9) Active confirmed Problem Chronic mixed headache syndrome (27076668) Chronic mixed headache syndrome (G44.89) Active confirmed Problem Allergic reaction to bee sting (924884749) Bee sting allergy (Z91.030) Active confirmed Vital Signs Heart Rate 86 /min 06/02/2025 Blood pressure diastolic 86 mm Hg 06/02/2025 Height 66 in 06/02/2025 Blood pressure systolic 150 mm Hg 06/02/2025 Weight 215.6 lbs 06/02/2025 BMI 34.79 kg/m2 06/02/2025 Encounters Encounter Location Date Provider Diagnosis [facility] [address] [facility] [address] [place] [id number] 07/06/2024 Radha Salmon Neck pain M54.2 ; Sc alp cyst L72.9 and Headache syndrome G44.89 [facility] [address] [facility] [address] [place] [id number] 10/04/2024 Radhajulieta Salmon Fungal skin infectio n B36.9 ; T2DM (type 2 diabetes mellitus) E11.9 and Weight loss counseling, encounter for Z71.3 [facility] [address] [facility] [address] [place] [id number] 04/21/2025 R Chris Palacios Cervical adenopathy R59.0 ; Conjunctivitis H10.9 ; T2DM (type 2 diabetes mellitus) E11.9 and Hypertension I10 [facility] [address] [place] [id number] 04/28/2025 R Chris Palacios Adult general medica l examination Z00.00 ; Cervical adenopathy R59.0 ; T2DM (type 2 diabetes mellitus) E11.9 ; Hypertension I10 ; Hyperlipidemia E78.5 ; Facet arthropathy, lumbar M47.816 ; Depression F32.9 ; Anxiety F41.9 ; Chronic mixed headache syndrome G44.89 ; GERD (gastroesophageal reflux disease) K21.9 ; Obstructive sleep apnea G47.33 ; Chronic bronchitis J42 and BMI 34.0-34.9,adult Z68.34 [facility] [address] [facility] [address] [place] [id number] 06/02/2025 R Chris Palacios Hypertension I10 [facility] [address] [facility] [address] [place], [place] [id number] 07/06/2024 Radha Salmon [facility] [address] [facility] [address] [place], [place] [id number] 07/08/2024 Radha Salmon [facility] [address] [facility] [address] [place], [place] [id number] 08/12/2024 Danielle [place]alvo Spinal stenosis of lumbar region with neurogenic claudication M48.062 [facility] [address] [place], [place] [id number] 11/23/2024 R Chris Philip Low back pain M54.5 [facility] [address] [place], [place] [id number] 01/10/2025 R Chris Philip Spinal stenosis of lumbar region with neurogenic claudication M48.062 [facility] [address] [place], [place] [id number] 02/01/2025 R Chris Philip Low back pain M54.5 [facility] [address] [place], [place] [id number] 04/04/2025 R Chris Philip [facility] [address] [place], [place] [id number] 04/25/2025 R Chris Philip [facility] [address] [place] [id number] 05/02/2025 R Chris Philip [facility] [address] [place], [place] [id number] 05/04/2025 R Chris Philip Spinal stenosis of lumbar region with neurogenic claudication M48.062 [facility] [address] [place], [place] [id number] 05/16/2025 R Chris Philip [facility] [address] [facility] [address] [place], [place] [id number] 06/13/2025 R Chris Philip Encounter for screen ing for osteoporosis Z13.820 [...] 11/23/2024 Low back pain (ICD-10 - M54.5) 02/01/2025 Low back pain (ICD-10 - M54.5) [...] region with neurogenic claudication (ICD-10 - M48.062) 06/02/2025 Hypertension (ICD-10 - I10) 06/13/2025 Encounter for screening for osteoporosis (ICD-10 - Z13.820) 01/10/2025 Spinal stenosis of lumbar region with [...] Treatment Pending Test Test Name Order Date Bone density 06/16/2025 P-Microalbumin/Creatinine, Random Urine Sample 04/28/2025 Insurance Providers Payer Name Payer Address Payer Phone Subscriber Number Group Number Insured Name Patient Relationship to Insured Coverage Start Date Coverage End Date [employer] ([employer]) [address] [address] [place] [address] [id number] NASIM MARTINEZ Self - patient is [...] digit on left foot-fract ure[facility] Chronic Meningitis Neuropathic dermatitis - followed [facility] Surgical History Surgery Date(Month/Year) Hysterectomy Cholecystectomy Knee Fissure Repair Excision of lumbar synovial cyst - Dr. Danielle shrestha 11/2006 RT CTS- Dr. Ewing 11/2006 Nasal 03/2008 Tooth Pulled 07/23/2011 Colon Resection for Tics Back- [facility] 09/13/2014 LT Thumb Joint Replacement 10/05/2019 C-scope/ Polyps/ [facility] Hospitalization History Reason Date(Month/Year) Chronic Meningitis- [facility] 10/13/2020 Nausea, Headache- [facility] 2019 Bowel Infection- [facility] 04/2014 Sinus Infection- [facility] 07/15/20 12 Blood Pressure Elevated 12/2010
--- OUTSIDE RECORDS SUMMARY | 2025-07-05 09:32 | XMS_ITS | Continuity of Care Document ---
Author Organization [facility] Address [address] [facility] [address] [place] [address] Phone Care Team Providers Care Professor Of French Name Role Phone Unavailable Primary Care Provider Unavailabl e Encounters Date Type Department Care Team Description 11/28/2020 Travel 11/28/2020 11:30 AM EST Office Visit [facility] [address] [facility] [address] [place] [address] Francia Archer MD Hx of chronic meningitis (Primary Dx); [id number] condition Allergies Active Allergy Reactions Criticality Noted [...] Active Social History Smoking Status as of 07/05/2025 Tobacco Use Types Packs/Day Years Used Date [...] infections of the central nervous system 11/28/2020 [id number] condition 11/28/2020
== END 2025-07-05 23:59 | disposition home or self-care (01) ==
LOC: RAD 09:09
PROVIDERS: PCP Family Medicine; Visit Provider Family Medicine
DX: Z13.820 Encounter for screening for osteoporosis (principal); Z78.0 Asymptomatic menopausal state
CPT/HCPCS: 77080